=== PATIENT | male | born 1950 | race Two or more races ===

== ENCOUNTER 2018-05-21 15:56 | Emergency (ER) | payer OTHER, MEDICARE | END 2018-05-21 17:54 | disposition home or self-care (01) | LOC: ER 15:56 | DX: M19.072 Primary osteoarthritis, left ankle and foot (principal); E78.00 Pure hypercholesterolemia, unspecified; I10 Essential (primary) hypertension; E11.9 Type 2 diabetes mellitus without complications | CPT/HCPCS: 73630; 99284 ==

== ENCOUNTER 2018-09-25 14:51 | Inpatient (IN) | payer OTHER ==
[~2018-09-25] VITALS: Ht 165.1 cm; Wt 92.1 kg
[2018-09-25] MEDS ORDERED: ACETAMINOPHEN 500 MG TABLET PO ONE (15:45)
[2018-09-25] MEDS ORDERED: IV NORMAL SALINE 1000ML BAG 1,000 ML IV ONE (15:45)
[2018-09-25 15:49] LABS: BILIRUBIN,URINE NEGATIVE (NEG); CLARITY,URINE CLEAR; COLOR,URINE YELLOW; NITRITE,URINE NEGATIVE (NEG); PH,URINE 7.5; PROTEIN,URINE 100 mg/dL (NEG-TRACE); UROBILINOGEN,URINE 0.2 mg/dL (0.2 mg/dL)
[2018-09-25 16:04] LABS: BACTERIA,URINE 0 /HPF (0-FEW); SQUAMOUS EPITHELIAL CELL,UR FEW /LPF; WBC,URINE OCC /HPF (0-4)
[2018-09-25 16:04] LABS: BASO % 1 % (0-3); EOS % 1 % (0-3); HEMATOCRIT 37.8 % (39.0-53.0); HEMOGLOBIN 12.4 g/dL (13.0-17.5); LYMPH # 0.6 x10^3/uL (1.0-4.8); LYMPH % 10 % (24-48); MEAN CORPUSCULAR HEMOGLOBIN 25 pg (25-35); MEAN CORPUSCULAR HGB CONC 33 g/dL (31-37); MEAN CORPUSCULAR VOLUME 76 fL (79-100); MONO # 0.5 x10^3/uL (0.0-1.1); MONO % 7 % (0-9); NEUT # 5.3 x10^3uL (1.8-7.7); NEUT % 82 % (31-73); PLATELET COUNT 182 x10^3/uL (140-400); RED BLOOD COUNT 4.96 x10^6/uL (4.30-5.70); RED CELL DISTRIBUTION WIDTH 15.8 % (11.5-14.5); WHITE BLOOD COUNT 6.5 x10^3/uL (4.0-11.0)
--- NOTE | 2018-09-25 16:07 | PHYS DOC ---
Past Medical History Past Medical History: Diabetes-Type II, High Cholesterol, Hypertension Past Surgical History: No Surgical History Smoking: Quit Greater Than 1 Year Alcohol Use: None Drug Use: None Adult General Chief Complaint Chief Complaint: FEVER HPI HPI Pt speaks [place] so translation phone used for communication. 68 y/o male presents to ER via POV for c/o fever, BEAL, bodyaches, nonprod. cough , and CP with coughing. Pt reports sxs started on Tuesday. Pt has 103.1 temp. on arrival- denying any OTC tylenol/ibuprofen for fever/pain today. Pt denies SOA, urinary sxs, sore throat, ear ache, urinary sxs, abd pain, or N/V/D. Pt denies recent travel. Pt denies any other family members with similar illness. Pt has been taking OTC Delsym and allergy medication since onset of sxs. Review of Systems Review of Systems Constitutional: Reports fever with generalized bodyaches and fatigue Eyes: Denies change in visual acuity, redness, or eye pain [] HENT: Denies nasal congestion or sore throat [] Respiratory: Denies shortness of breath. Reports nonprod. cough Cardiovascular: Reports CP w/coughing episodes. Denies palpitations GI: Denies abdominal pain, nausea, vomiting, bloody stools or diarrhea [] : Denies dysuria or hematuria [] Musculoskeletal: Reports generalized bodyaches denying neck stiffness Integument: Denies rash, swelling or skin lesions [] Neurologic: Denies focal weakness or sensory changes. Reports mild BEAL denying dizziness/lightheadedness Endocrine: Denies polyuria or polydipsia [] All other systems were reviewed and found to be within normal limits, except as documented in this note. Current Medications Current Medications Current Medications Medications (Trade) Dose Ordered Sig/[place] Start Time Stop Time Status Last Admin Dose Admin Acetaminophen (Tylenol) 1,000 mg 1X ONCE 09/25/18 15:45 09/25/18 15:46 DC 09/25/18 16:25 1,000 MG Sodium Chloride 1,000 ml @ 1,000 mls/hr 1X ONCE 09/25/18 15:45 09/25/18 16:44 DC 09/25/18 16:25 1,000 MLS/HR Allergies Allergies Allergies Coded Allergies Type Severity Reaction Last Updated Verified No Known Drug Allergies 11/22/14 No Physical Exam Physical Exam Constitutional: Well developed, well nourished, no acute distress, non-toxic appearance. [] HENT: Normocephalic, atraumatic, bilateral ears normal, no pharyngeal/tonsillar erythema or swelling, mucous membranes pink/moist, no oral exudates, nose normal. [] Eyes: 3mm PERRLA, no nystagmus, conjunctiva normal, no discharge. [] Neck: Normal range of motion, no tenderness, supple, no gross adenopathy Cardiovascular: Tachycardic heart rate/rhythm, no murmur [] Lungs & Thorax: Bilateral breath sounds clear to auscultation. Resp. equal/ nonlabored Abdomen: Bowel sounds normal, soft, no tenderness, no masses, no pulsatile masses. [] Skin: Warm, dry, no erythema, no rash. [] Back: No tenderness, no CVA tenderness. [] Extremities: No tenderness, no cyanosis, no clubbing, ROM intact, no edema. [] Neurologic: Alert and oriented X 3, normal motor function, normal sensory function, no focal deficits noted. [] Psychologic: Affect normal, judgement normal, mood normal. [] Current Patient Data Vital Signs Vital Signs Date Time Temp Pulse Resp B/P (MAP) Pulse Ox O2 Delivery O2 Flow Rate FiO2 09/25/18 18:00 102 133/74 (93) 94 Room Air 09/25/18 17:36 99.5 99.5 09/25/18 15:39 22 Lab Values Laboratory Tests Test 09/25/18 15:20 09/25/18 15:37 09/25/18 15:45 Influenza Type A Antigen Negative (NEGATIVE) Influenza Type B Antigen Negative (NEGATIVE) Urine Collection Type Unknown Urine Color Yellow Urine Clarity Clear Urine pH 7.5 Urine Specific [place] 1.020 Urine Protein 100 mg/dL (NEG-TRACE) Urine Glucose (UA) Negative mg/dL (NEG) Urine Ketones (Stick) Negative mg/dL (NEG) Urine Blood Negative (NEG) Urine Nitrite Negative (NEG) Urine Bilirubin Negative (NEG) Urine Urobilinogen Dipstick 0.2 mg/dL (0.2 mg/dL) Urine Leukocyte Esterase Negative (NEG) Urine RBC 1-2 /HPF (0-2) Urine WBC Occ /HPF (0-4) Urine Squamous Epithelial Cells Few /LPF Urine Bacteria 0 /HPF (0-FEW) Urine Mucus Slight /LPF White Blood Count 6.5 x10^3/uL (4.0-11.0) Red Blood Count 4.96 x10^6/uL (4.30-5.70) Hemoglobin 12.4 g/dL (13.0-17.5) L Hematocrit 37.8 % (39.0-53.0) L Mean Corpuscular Volume 76 fL (79-100) L Mean Corpuscular Hemoglobin 25 pg (25-35) Mean Corpuscular Hemoglobin Concent 33 g/dL (31-37) Red Cell Distribution Width 15.8 % (11.5-14.5) H Platelet Count 182 x10^3/uL (140-400) Neutrophils (%) (Auto) 82 % (31-73) H Lymphocytes (%) (Auto) 10 % (24-48) L Monocytes (%) (Auto) 7 % (0-9) Eosinophils (%) (Auto) 1 % (0-3) Basophils (%) (Auto) 1 % (0-3) Neutrophils # (Auto) 5.3 x10^3uL (1.8-7.7) Lymphocytes # (Auto) 0.6 x10^3/uL (1.0-4.8) L Monocytes # (Auto) 0.5 x10^3/uL (0.0-1.1) Eosinophils # (Auto) 0.0 x10^3/uL (0.0-0.7) Basophils # (Auto) 0.0 x10^3/uL (0.0-0.2) Sodium Level 137 mmol/L (136-145) Potassium Level 3.9 mmol/L (3.5-5.1) Chloride Level 100 mmol/L (98-107) Carbon Dioxide Level 26 mmol/L (21-32) Anion Gap 11 (6-14) Blood Urea Nitrogen 10 mg/dL (8-26) Creatinine 0.9 mg/dL (0.7-1.3) Estimated GFR (Cockcroft-Gault) 84.4 BUN/Creatinine Ratio 11 (6-20) Glucose Level 146 mg/dL (70-99) H Lactic Acid Level 1.6 mmol/L (0.4-2.0) Calcium Level 9.0 mg/dL (8.5-10.1) Total Bilirubin 0.3 mg/dL (0.2-1.0) Aspartate Amino Transferase (AST) 20 U/L (15-37) Alanine Aminotransferase (ALT) 26 U/L (16-63) Alkaline Phosphatase 63 U/L (46-116) Troponin I Quantitative < 0.017 ng/mL (0.000-0.055) Total Protein 7.7 g/dL (6.4-8.2) Albumin 3.9 g/dL (3.4-5.0) Albumin/Globulin Ratio 1.0 (1.0-1.7) Laboratory Tests 09/25/18 15:45 Laboratory Tests 09/25/18 15:45 Microbiology 09/25/18 Blood Culture - Preliminary, Resulted NO GROWTH AFTER 4 DAYS EKG EKG EKG obtained 09/25/18 at [address] Trejo Sinus tachycardia Rate 125 No STEMI Radiology/Procedures Radiology/Procedures PROCEDURE: CHEST PA & LATERAL AP and Lateral Views of the Chest 09/25/2018 3:44 PM Indication: FEVER, CHEST PAIN X3 DAYS Comparison: 2 views of the chest November 22, 2014. Findings: There is no focal consolidation or infiltrate identified. The cardiomediastinal silhouette is within normal limits. There is no evidence of pneumothorax or pleural effusion. No acute osseous abnormalities are identified. Impression: No evidence of acute cardiopulmonary process. Electronically signed by: Wilberto Sharp MD (09/25/2018 4:27 PM) [facility] DICTATED and SIGNED BY: WILBERTO SHARP MD DATE: 09/25/180 Course & Med Decision Making Course & Med Decision Making Pertinent Labs and Imaging studies reviewed. (See chart for details) Discussed pt's test results with him via translation phone- discussed with sxs recommended admission for further monitoring and care- he is agreeable with this plan. Pt reports he is feeling slightly better following flds/tx while in ER. Nontoxic in appearance however does still appear fatigued. Pt denies any SOA /CP and he remains A&Ox3. Pt's UA/chest xray were unremarkable. WBCs 6.5 with no bands- neg. flu swab- EKG with no acute STEMI/ST elevation and troponin < 0.017; lactic acid NL at 1.6. 1733: Spoke with Dr. Littlejohn, hospitalist and discussed pt's case and admission plan. With pt having 103.1 temp. on arrival and c/o BEAL will discuss pt's case with Dr. Trejo and possible need for LP. Pt did have LP by Dr. Trejo prior to going to assigned admit room. ABBY Procedure note: The area was prepped and draped in the usual sterile fashion. Informed consent was obtained prior to the procedure via an physical education specialist phone . lidocaine was used for subcutaneous anesthesia. The L2-3 interspace was attempted without success and then the L3-4 interspace WAS entered with a 20- gauge needle clear CSF was returned the patient tolerated well neuro intact after the procedure. I evaluated this patient in detail. Apparently this is a 68-year-old male last was in [place] on June coming in with fever of 103 as well as mild headache dry cough body aches amazingly the influenza swab was negative. The neck was pretty supple however I really had no other obvious source symptoms and given the elevated fever I feel that a lumbar puncture would be reasonable. He consented to the procedure we talked about a with physical education specialist phone in detail. See above. Patient was then transferred to the floor under droplet precautions and at 9:50 PM I was made aware by the lab that the results of the CSF or in. There were 9 white cells with a lymphocytic predominance there also was high protein and mildly elevated glucose in the CSF. Given the clinical symptoms and these findings I think a viral is the most likely etiology. There is an HSV PCR pending and in addition I did order ceftriaxone Vanco and acyclovir to cover him overnight. I did place for a consult for infectious disease see this patient in the hospital. I DID SPEAK WITH THE NURSE AT ROOM 532 ABOUT THE ADDED ON THERAPY AND SHE WILL DO THE ABX/ANTIVIRAL AND KEEP PT ON DROPLET OVERNIGHT Dragon Disclaimer Dragon Disclaimer This electronic medical record was generated, in whole or in part, using a voice recognition dictation system. Departure Departure Impression: Primary Impression: Fever Disposition: HOME, SELF-CARE Condition: STABLE Referrals: UNKNOWN PCP NAME (PCP) Scripts Glimepiride (AMARYL) 2 Mg Tablet 2 MG PO DAILY08 for BLOOD SUGAR for 30 Days, #30 TAB Prov: LEONILA SILVERIO MD 09/28/18 Metformin Hcl (GLUCOPHAGE) 500 Mg Tablet 1000 MG PO BIDWMEALS for BLOOD SUGAR for 30 Days, #120 TAB Prov: LEONILA SILVERIO MD 09/28/18 Ibuprofen (Ibuprofen) 200 Mg Tablet 600 MG PO PRN Q6HRS PRN for INFLAMMATION for 14 Days, #90 TAB Prov: LEONILA SILVERIO MD 09/28/18 Aspirin (ASPIRIN EC) 81 Mg Tablet.dr 81 MG PO DAILYWBKFT for HEART for 90 Days, #90 TAB.SR Prov: LEONILA SILVERIO MD 09/28/18 Lisinopril (LISINOPRIL) 5 Mg Tablet 5 MG PO DAILY for BLOOD PRESSURE for 30 Days, #30 TAB Prov: LEONILA SILVERIO MD 09/28/18 Atorvastatin Calcium (ATORVASTATIN CALCIUM) 40 Mg Tablet 40 MG PO QHS for CHOLESTEROL for 30 Days, #30 TAB Prov: LEONILA SILVERIO MD 09/28/18 Metoprolol Tartrate (METOPROLOL TARTRATE) 50 Mg Tablet 50 MG PO BID for HEART for 30 Days, #60 TAB Prov: LEONILA SILVERIO MD 09/28/18 EPIFANIO GAYLE APRN Sep 25, 2018 16:07 TANIKA TREJO MD Sep 25, 2018 21:52
[2018-09-25 16:12] LABS: CREATININE 0.9 mg/dL (0.7-1.3); GFR 84.4; POTASSIUM 3.9 mmol/L (3.5-5.1)
[2018-09-25 16:18] LABS: ALBUMIN 3.9 g/dL (3.4-5.0); TOTAL BILIRUBIN 0.3 mg/dL (0.2-1.0); TOTAL PROTEIN 7.7 g/dL (6.4-8.2)
--- NOTE | 2018-09-25 16:30 | RAD ---
AP and Lateral Views of the Chest 09/25/2018 3:44 PM Indication: FEVER, CHEST PAIN X3 DAYS Comparison: 2 views of the chest November 22, 2014. Findings: There is no focal consolidation or infiltrate identified. The cardiomediastinal silhouette is within normal limits. There is no evidence of pneumothorax or pleural effusion. No acute osseous abnormalities are identified. Impression: No evidence of acute cardiopulmonary process. Electronically signed by: Wilberto Whiting MD (09/25/2018 4:27 PM) [facility] [place]
[2018-09-25 16:34] LABS: INFLUENZA A PATIENT NEGATIVE (NEGATIVE); INFLUENZA B PATIENT NEGATIVE (NEGATIVE)
--- NOTE | 2018-09-25 16:50 | EKG ---
[facility] [address] [place] [address] Test Date: 2018-09-25 Test Time: 15:52:36 Pat Name: ILIANA ELLINGTON Department: Room: Gender: M Operations Inspector: : 1950 Requested By: EPIFANIO GAYLE Order Number: [id number] Reading MD: Silvestre Paris MD Measurements Intervals [place] Rate: 125 P: 39 VA: 146 QRS: 2 QRSD: 78 T: 53 QT: 290 QTc: 420 Interpretive Statements SINUS TACHYCARDIA Electronically Signed On 09-26-2018 13:56:08 DRAFTER DETAIL by Silvestre Paris MD
[2018-09-25] MEDS ORDERED: LIDOCAINE 2% 20 ML VIAL. IJ ONE (18:15)
[2018-09-25 19:48] LABS: CSF PROTEIN 56.8 mg/dL (15.0-45.0)
[2018-09-25] MEDS: ACETAMINOPHEN 325 MG TABLET. PO PRN (21:20)
[2018-09-25 21:39] LABS: CSF CLARITY CLEAR; CSF COLOR COLORLESS
[2018-09-25 21:40] LABS: CSF MON % 100 %; CSF PMN % 0 %; CSF RBC COUNT 2; CSF WBC COUNT 9
[2018-09-25] MEDS: DEXTROSE 5% IV SCH (22:53)
[2018-09-25] MEDS: ACYCLOVIR SODIUM IV SCH (22:53)
[2018-09-25 23:00] VITALS: BP 129/78
[2018-09-25] MEDS: cefTRIAXone SODIUM 2 GM in IV DEXTROSE 5% 100ML 100 ML IV SCH (23:00)
[2018-09-26] MEDS ORDERED: VANCOMYCIN 2 GM in IV NORMAL SALINE 500ML BAG 500 ML IV ONE ×2
[2018-09-26 03:00] VITALS: BP 130/71
[2018-09-26] MEDS: DEXTROSE 5% IV SCH (06:15)
[2018-09-26] MEDS: ACYCLOVIR SODIUM IV SCH (06:15)
[2018-09-26] MEDS: VANCOMYCIN PER PHARMACY MC PRN ×2 (06:22→06:24)
[2018-09-26 07:00] VITALS: BP 104/61
[2018-09-26 07:21] LABS: BASO % 1 % (0-3); EOS % 0 % (0-3); HEMATOCRIT 37.5 % (39.0-53.0); HEMOGLOBIN 12.4 g/dL (13.0-17.5); LYMPH # 0.7 x10^3/uL (1.0-4.8); LYMPH % 11 % (24-48); MEAN CORPUSCULAR HEMOGLOBIN 25 pg (25-35); MEAN CORPUSCULAR HGB CONC 33 g/dL (31-37); MEAN CORPUSCULAR VOLUME 76 fL (79-100); MONO # 0.5 x10^3/uL (0.0-1.1); MONO % 8 % (0-9); NEUT # 5.1 x10^3uL (1.8-7.7); NEUT % 81 % (31-73); RED BLOOD COUNT 4.91 x10^6/uL (4.30-5.70); RED CELL DISTRIBUTION WIDTH 15.9 % (11.5-14.5); WHITE BLOOD COUNT 6.3 x10^3/uL (4.0-11.0)
[2018-09-26 07:34] LABS: CALCIUM 8.7 mg/dL (8.5-10.1); CREATININE 0.9 mg/dL (0.7-1.3); GFR 84.4; POTASSIUM 3.6 mmol/L (3.5-5.1)
[2018-09-26 07:55] LABS: PLATELET COUNT 183 x10^3/uL (140-400)
[2018-09-26] MEDS ORDERED: IBUPROFEN 200 MG TABLET. PO PRN (08:00)
[2018-09-26] MEDS: LISINOPRIL 10 MG TABLET PO SCH (09:00)
--- NOTE | 2018-09-26 09:09 | PDOC ---
Infectious Disease Note Vital Sign Vital Signs Vital Signs Date Time Temp Pulse Resp B/P (MAP) Pulse Ox O2 Delivery O2 Flow Rate FiO2 09/26/18 07:00 99.1 99 18 104/61 (75) 95 Room Air 99.1 Labs Lab Laboratory Tests Test 09/25/18 15:20 09/25/18 15:37 09/25/18 15:45 09/25/18 19:10 Influenza Type A Antigen Negative (NEGATIVE) Influenza Type B Antigen Negative (NEGATIVE) Urine Collection Type Unknown Urine Color Yellow Urine Clarity Clear Urine pH 7.5 Urine Specific [place] 1.020 Urine Protein 100 mg/dL (NEG-TRACE) Urine Glucose (UA) Negative mg/dL (NEG) Urine Ketones (Stick) Negative mg/dL (NEG) Urine Blood Negative (NEG) Urine Nitrite Negative (NEG) Urine Bilirubin Negative (NEG) Urine Urobilinogen Dipstick 0.2 mg/dL (0.2 mg/dL) Urine Leukocyte Esterase Negative (NEG) Urine RBC 1-2 /HPF (0-2) Urine WBC Occ /HPF (0-4) Urine Squamous Epithelial Cells Few /LPF Urine Bacteria 0 /HPF (0-FEW) Urine Mucus Slight /LPF White Blood Count 6.5 x10^3/uL (4.0-11.0) Red Blood Count 4.96 x10^6/uL (4.30-5.70) Hemoglobin 12.4 g/dL (13.0-17.5) Hematocrit 37.8 % (39.0-53.0) Mean Corpuscular Volume 76 fL (79-100) Mean Corpuscular Hemoglobin 25 pg (25-35) Mean Corpuscular Hemoglobin Concent 33 g/dL (31-37) Red Cell Distribution Width 15.8 % (11.5-14.5) Platelet Count 182 x10^3/uL (140-400) Neutrophils (%) (Auto) 82 % (31-73) Lymphocytes (%) (Auto) 10 % (24-48) Monocytes (%) (Auto) 7 % (0-9) Eosinophils (%) (Auto) 1 % (0-3) Basophils (%) (Auto) 1 % (0-3) Neutrophils # (Auto) 5.3 x10^3uL (1.8-7.7) Lymphocytes # (Auto) 0.6 x10^3/uL (1.0-4.8) Monocytes # (Auto) 0.5 x10^3/uL (0.0-1.1) Eosinophils # (Auto) 0.0 x10^3/uL (0.0-0.7) Basophils # (Auto) 0.0 x10^3/uL (0.0-0.2) Sodium Level 137 mmol/L (136-145) Potassium Level 3.9 mmol/L (3.5-5.1) Chloride Level 100 mmol/L (98-107) Carbon Dioxide Level 26 mmol/L (21-32) Anion Gap 11 (6-14) Blood Urea Nitrogen 10 mg/dL (8-26) Creatinine 0.9 mg/dL (0.7-1.3) Estimated GFR (Cockcroft-Gault) 84.4 BUN/Creatinine Ratio 11 (6-20) Glucose Level 146 mg/dL (70-99) Lactic Acid Level 1.6 mmol/L (0.4-2.0) Calcium Level 9.0 mg/dL (8.5-10.1) Total Bilirubin 0.3 mg/dL (0.2-1.0) Aspartate Amino Transf (AST/SGOT) 20 U/L (15-37) Alanine Aminotransferase (ALT/SGPT) 26 U/L (16-63) Alkaline Phosphatase 63 U/L (46-116) Troponin I Quantitative < 0.017 ng/mL (0.000-0.055) Total Protein 7.7 g/dL (6.4-8.2) Albumin 3.9 g/dL (3.4-5.0) Albumin/Globulin Ratio 1.0 (1.0-1.7) CSF Tube Number 3 CSF Volume 3.0 CSF Color Colorless CSF Clarity Clear CSF WBC 9 CSF RBC 2 CSF Mononuclear WBCs % 100 % CSF Polynuclear WBCs (%) 0 % CSF Glucose 89 mg/dL (37-70) CSF Total Protein 56.8 mg/dL (15.0-45.0) Test 09/25/18 21:11 09/26/18 07:00 09/26/18 07:58 Glucose (Fingerstick) 152 mg/dL (70-99) 200 mg/dL (70-99) White Blood Count 6.3 x10^3/uL (4.0-11.0) Red Blood Count 4.91 x10^6/uL (4.30-5.70) Hemoglobin 12.4 g/dL (13.0-17.5) Hematocrit 37.5 % (39.0-53.0) Mean Corpuscular Volume 76 fL (79-100) Mean Corpuscular Hemoglobin 25 pg (25-35) Mean Corpuscular Hemoglobin Concent 33 g/dL (31-37) Red Cell Distribution Width 15.9 % (11.5-14.5) Platelet Count 183 x10^3/uL (140-400) Neutrophils (%) (Auto) 81 % (31-73) Lymphocytes (%) (Auto) 11 % (24-48) Monocytes (%) (Auto) 8 % (0-9) Eosinophils (%) (Auto) 0 % (0-3) Basophils (%) (Auto) 1 % (0-3) Neutrophils # (Auto) 5.1 x10^3uL (1.8-7.7) Lymphocytes # (Auto) 0.7 x10^3/uL (1.0-4.8) Monocytes # (Auto) 0.5 x10^3/uL (0.0-1.1) Eosinophils # (Auto) 0.0 x10^3/uL (0.0-0.7) Basophils # (Auto) 0.0 x10^3/uL (0.0-0.2) Sodium Level 137 mmol/L (136-145) Potassium Level 3.6 mmol/L (3.5-5.1) Chloride Level 100 mmol/L (98-107) Carbon Dioxide Level 25 mmol/L (21-32) Anion Gap 12 (6-14) Blood Urea Nitrogen 7 mg/dL (8-26) Creatinine 0.9 mg/dL (0.7-1.3) Estimated GFR (Cockcroft-Gault) 84.4 Glucose Level 194 mg/dL (70-99) Calcium Level 8.7 mg/dL (8.5-10.1) Objective Assessment Aseptic Meningitis Fever - Now s/p Im Flu vaccine today DM BEAL Plan Plan of Care D/c Acyclovir/Vanc Added [place] and Enteroviral to CSF Rocephin daily F/u labs and cults D/w family Thank you # [phone] Attending Co-Sign Attending Co-Sign The patient was seen and interviewed as well as examined at the bedside. The chart was reviewed. The case was discussed. Agree with the plan of care. PEPITO FRANZ MD Sep 26, 2018 09:09
[2018-09-26] MEDS: GLIMEPIRIDE 2 MG TABLET. PO SCH (09:44)
[2018-09-26] MEDS: ACETAMINOPHEN 325 MG TABLET. PO PRN ×2 (09:44→15:29)
[2018-09-26 10:36] VITALS: BP 118/67
--- NOTE | 2018-09-26 10:53 | PDOC1 ---
History and Physical Date of Admission Date of Admission DATE: 09/26/18 TIME: 10:49 Identification/Chief Complaint Chief Complaint fevers Source Source: Caregiver, Chart review, Patient History of Present Illness History of Present Illness 68-year-old male with limited Bhutanese, comes in because of acute onset fever 103 temperature at the emergency room which has come down after management. He has some headache, denies recent travels or sick contacts, no rash, no diarrhea. UA and chest x-ray is clean. Lacks symptoms of URI infection. Did recommend LP and that was done which shows relatively clean LP. ID consulted. Initially started on Acyclovir, Vancomycin etc. for meningitis coverage but to DC that since LP is clean. Added West Nile etc. This could all be viral syndrome but we do not have a source. Flu is negative. Did get an IM shot of flu already today. We'll follow-up the lab test results. If remains fever free then possibly dc tomorrow. He did have low-grade temperatures last night still. Discussed with multiple family members at bedside . Physical exam is within normal limits. Past medical history none Past Medical History Cardiovascular: No pertinent hx Pulmonary: No pertinent hx GI: No pertinent hx Heme/Onc: No pertinent hx Hepatobiliary: No pertinent hx Psych: No pertinent hx Rheumatologic: No pertinent hx Infectious disease: No pertinent hx ENT: No pertinent hx Renal/: No pertinent hx Endocrine: No pertinent hx Dermatology: No pertinent hx Past Surgical History Past Surgical History: No pertinent history Family History Family History: No Significant Social History Smoke: No ALCOHOL: none Drugs: None Current Medications Current Medications Current Medications Sodium Chloride 1,000 ml @ 1,000 mls/hr 1X ONCE IV Last administered on at 16:25; Start 09/25/18 at 15:45; Stop 09/25/18 at 16:44; Status DC Acetaminophen (Tylenol) 1,000 mg 1X ONCE PO Last administered on 09/25/18at 16: 25; Start 09/25/18 at 15:45; Stop 09/25/18 at 15:46; Status DC Lidocaine HCl 10 ml 1X ONCE IJ Last administered on 09/25/18at 18:50; Start at 18:15; Stop 09/25/18 at 18:16; Status DC Acetaminophen (Tylenol) 650 mg PRN Q4HRS PRN PO FEVER Last administered on 09/26at 09:44; Start 09/25/18 at 20:00; Stop 09/26/18 at 19:59 Ceftriaxone Sodium 2 gm/ Dextrose 100 ml @ 200 mls/hr Q24H IV Last administered on 09/25/18at 23:00; Start 09/25/18 at 22:00 Vancomycin HCl (Vanco Per Pharmacy) 1 each PRN DAILY PRN MC SEE COMMENTS Last administered on 09/26/18at 06:24; Start 09/25/18 at 21:45; Stop 09/26/18 at 09:00 ; Status DC Acyclovir Sodium 310 mg/Dextrose 106.2 ml @ 106.2 mls/ hr Q8HRS IV Last administered on 09/26/18at 06:15; Start 09/25/18 at 22:00; Stop 09/26/18 at 09:00 ; Status DC Vancomycin HCl 2 gm/Sodium Chloride 500 ml @ 250 mls/hr 1X ONCE IV Last administered on 09/26/18at 00:00; Start 09/26/18 at 00:00; Stop 09/26/18 at 01:59 ; Status DC Influenza Virus Vaccine (Afluria Trivalent [id number] Syringe) 0.5 ml ONCE ONCE VAX IM ; Start 09/26/18 at 09:00; Stop 09/26/18 at 09:01; Status DC Glimepiride (Amaryl) 2 mg DAILY08 PO Last administered on 09/26/18at 09:44; Start 09/26/18 at 08:00 Atorvastatin Calcium (Lipitor) 40 mg QHS PO ; Start 09/26/18 at 21:00 Lisinopril (Prinivil) 10 mg DAILY PO ; Start 09/26/18 at 09:00 Vancomycin HCl 1.25 gm/Sodium Chloride 250 ml @ 167 mls/hr Q12H IV ; Start 09/26/18 at 12:00; Stop 09/26/18 at 12:00; Status DC Vancomycin HCl (Vancomycin Trough Level) 1 each 1X ONCE MC ; Start 09/27/18 at 11:30; Stop 09/27/18 at 11:31; Status Cancel Ibuprofen (Motrin) 600 mg PRN Q6HRS PRN PO INFLAMMATION; Start 09/26/18 at 08: 00 Allergies Allergies: Coded Allergies: No Known Drug Allergies (Unverified , 1/2/15) ROS Review of System Per history of present illness, the rest of ROS 14 point negative Physical Exam General: Alert, Oriented X3, Cooperative, No acute distress HEENT: Atraumatic, PERRLA, EOMI Lungs: Clear to auscultation, Normal air movement Heart: S1S2, RRR, no thrills, no rubs, no gallops, no murmurs Cardiovascular: S1, S2 Abdomen: Normal bowel sounds, Soft, No tenderness, No hepatosplenomegaly, No masses Male Genitals Exam: normal genitalia, normal prostate Rectal Exam: not examined PELVIC: Nml ext genitalia Extremities: No clubbing, No cyanosis, No edema, Normal pulses, No tenderness/ swelling Skin: No rashes, No breakdown, No significant lesion Neuro: Normal gait, Normal speech, Strength at 5/5 X4 ext, Normal tone, Sensation intact, Cranial nerves 3-12 NL, Reflexes 2+ Psych/Mental Status: Mental status NL, Mood NL Vitals Vitals Vital Signs Date Time Temp Pulse Resp B/P (MAP) Pulse Ox O2 Delivery O2 Flow Rate FiO2 09/26/18 10:36 99.8 98 18 118/67 (84) 93 Room Air 99.8 Labs Labs Laboratory Tests Test 09/25/18 15:20 09/25/18 15:37 09/25/18 15:45 09/25/18 19:10 Influenza Type A Antigen Negative (NEGATIVE) Influenza Type B Antigen Negative (NEGATIVE) Urine Collection Type Unknown Urine Color Yellow Urine Clarity Clear Urine pH 7.5 Urine Specific [place] 1.020 Urine Protein 100 mg/dL (NEG-TRACE) Urine Glucose (UA) Negative mg/dL (NEG) Urine Ketones (Stick) Negative mg/dL (NEG) Urine Blood Negative (NEG) Urine Nitrite Negative (NEG) Urine Bilirubin Negative (NEG) Urine Urobilinogen Dipstick 0.2 mg/dL (0.2 mg/dL) Urine Leukocyte Esterase Negative (NEG) Urine RBC 1-2 /HPF (0-2) Urine WBC Occ /HPF (0-4) Urine Squamous Epithelial Cells Few /LPF Urine Bacteria 0 /HPF (0-FEW) Urine Mucus Slight /LPF White Blood Count 6.5 x10^3/uL (4.0-11.0) Red Blood Count 4.96 x10^6/uL (4.30-5.70) Hemoglobin 12.4 g/dL (13.0-17.5) Hematocrit 37.8 % (39.0-53.0) Mean Corpuscular Volume 76 fL (79-100) Mean Corpuscular Hemoglobin 25 pg (25-35) Mean Corpuscular Hemoglobin Concent 33 g/dL (31-37) Red Cell Distribution Width 15.8 % (11.5-14.5) Platelet Count 182 x10^3/uL (140-400) Neutrophils (%) (Auto) 82 % (31-73) Lymphocytes (%) (Auto) 10 % (24-48) Monocytes (%) (Auto) 7 % (0-9) Eosinophils (%) (Auto) 1 % (0-3) Basophils (%) (Auto) 1 % (0-3) Neutrophils # (Auto) 5.3 x10^3uL (1.8-7.7) Lymphocytes # (Auto) 0.6 x10^3/uL (1.0-4.8) Monocytes # (Auto) 0.5 x10^3/uL (0.0-1.1) Eosinophils # (Auto) 0.0 x10^3/uL (0.0-0.7) Basophils # (Auto) 0.0 x10^3/uL (0.0-0.2) Sodium Level 137 mmol/L (136-145) Potassium Level 3.9 mmol/L (3.5-5.1) Chloride Level 100 mmol/L (98-107) Carbon Dioxide Level 26 mmol/L (21-32) Anion Gap 11 (6-14) Blood Urea Nitrogen 10 mg/dL (8-26) Creatinine 0.9 mg/dL (0.7-1.3) Estimated GFR (Cockcroft-Gault) 84.4 BUN/Creatinine Ratio 11 (6-20) Glucose Level 146 mg/dL (70-99) Lactic Acid Level 1.6 mmol/L (0.4-2.0) Calcium Level 9.0 mg/dL (8.5-10.1) Total Bilirubin 0.3 mg/dL (0.2-1.0) Aspartate Amino Transf (AST/SGOT) 20 U/L (15-37) Alanine Aminotransferase (ALT/SGPT) 26 U/L (16-63) Alkaline Phosphatase 63 U/L (46-116) Troponin I Quantitative < 0.017 ng/mL (0.000-0.055) Total Protein 7.7 g/dL (6.4-8.2) Albumin 3.9 g/dL (3.4-5.0) Albumin/Globulin Ratio 1.0 (1.0-1.7) CSF Tube Number 3 CSF Volume 3.0 CSF Color Colorless CSF Clarity Clear CSF WBC 9 CSF RBC 2 CSF Mononuclear WBCs % 100 % CSF Polynuclear WBCs (%) 0 % CSF Glucose 89 mg/dL (37-70) CSF Total Protein 56.8 mg/dL (15.0-45.0) Test 09/25/18 21:11 09/26/18 07:00 09/26/18 07:58 Glucose (Fingerstick) 152 mg/dL (70-99) 200 mg/dL (70-99) White Blood Count 6.3 x10^3/uL (4.0-11.0) Red Blood Count 4.91 x10^6/uL (4.30-5.70) Hemoglobin 12.4 g/dL (13.0-17.5) Hematocrit 37.5 % (39.0-53.0) Mean Corpuscular Volume 76 fL (79-100) Mean Corpuscular Hemoglobin 25 pg (25-35) Mean Corpuscular Hemoglobin Concent 33 g/dL (31-37) Red Cell Distribution Width 15.9 % (11.5-14.5) Platelet Count 183 x10^3/uL (140-400) Neutrophils (%) (Auto) 81 % (31-73) Lymphocytes (%) (Auto) 11 % (24-48) Monocytes (%) (Auto) 8 % (0-9) Eosinophils (%) (Auto) 0 % (0-3) Basophils (%) (Auto) 1 % (0-3) Neutrophils # (Auto) 5.1 x10^3uL (1.8-7.7) Lymphocytes # (Auto) 0.7 x10^3/uL (1.0-4.8) Monocytes # (Auto) 0.5 x10^3/uL (0.0-1.1) Eosinophils # (Auto) 0.0 x10^3/uL (0.0-0.7) Basophils # (Auto) 0.0 x10^3/uL (0.0-0.2) Erythrocyte Sedimentation Rate 12 (0-15) Sodium Level 137 mmol/L (136-145) Potassium Level 3.6 mmol/L (3.5-5.1) Chloride Level 100 mmol/L (98-107) Carbon Dioxide Level 25 mmol/L (21-32) Anion Gap 12 (6-14) Blood Urea Nitrogen 7 mg/dL (8-26) Creatinine 0.9 mg/dL (0.7-1.3) Estimated GFR (Cockcroft-Gault) 84.4 Glucose Level 194 mg/dL (70-99) Calcium Level 8.7 mg/dL (8.5-10.1) Laboratory Tests Test 09/25/18 15:20 09/25/18 15:37 09/25/18 15:45 09/25/18 19:10 Influenza Type A Antigen Negative (NEGATIVE) Influenza Type B Antigen Negative (NEGATIVE) Urine Collection Type Unknown Urine Color Yellow Urine Clarity Clear Urine pH 7.5 Urine Specific [place] 1.020 Urine Protein 100 mg/dL (NEG-TRACE) Urine Glucose (UA) Negative mg/dL (NEG) Urine Ketones (Stick) Negative mg/dL (NEG) Urine Blood Negative (NEG) Urine Nitrite Negative (NEG) Urine Bilirubin Negative (NEG) Urine Urobilinogen Dipstick 0.2 mg/dL (0.2 mg/dL) Urine Leukocyte Esterase Negative (NEG) Urine RBC 1-2 /HPF (0-2) Urine WBC Occ /HPF (0-4) Urine Squamous Epithelial Cells Few /LPF Urine Bacteria 0 /HPF (0-FEW) Urine Mucus Slight /LPF White Blood Count 6.5 x10^3/uL (4.0-11.0) Red Blood Count 4.96 x10^6/uL (4.30-5.70) Hemoglobin 12.4 g/dL (13.0-17.5) Hematocrit 37.8 % (39.0-53.0) Mean Corpuscular Volume 76 fL (79-100) Mean Corpuscular Hemoglobin 25 pg (25-35) Mean Corpuscular Hemoglobin Concent 33 g/dL (31-37) Red Cell Distribution Width 15.8 % (11.5-14.5) Platelet Count 182 x10^3/uL (140-400) Neutrophils (%) (Auto) 82 % (31-73) Lymphocytes (%) (Auto) 10 % (24-48) Monocytes (%) (Auto) 7 % (0-9) Eosinophils (%) (Auto) 1 % (0-3) Basophils (%) (Auto) 1 % (0-3) Neutrophils # (Auto) 5.3 x10^3uL (1.8-7.7) Lymphocytes # (Auto) 0.6 x10^3/uL (1.0-4.8) Monocytes # (Auto) 0.5 x10^3/uL (0.0-1.1) Eosinophils # (Auto) 0.0 x10^3/uL (0.0-0.7) Basophils # (Auto) 0.0 x10^3/uL (0.0-0.2) Sodium Level 137 mmol/L (136-145) Potassium Level 3.9 mmol/L (3.5-5.1) Chloride Level 100 mmol/L (98-107) Carbon Dioxide Level 26 mmol/L (21-32) Anion Gap 11 (6-14) Blood Urea Nitrogen 10 mg/dL (8-26) Creatinine 0.9 mg/dL (0.7-1.3) Estimated GFR (Cockcroft-Gault) 84.4 BUN/Creatinine Ratio 11 (6-20) Glucose Level 146 mg/dL (70-99) Lactic Acid Level 1.6 mmol/L (0.4-2.0) Calcium Level 9.0 mg/dL (8.5-10.1) Total Bilirubin 0.3 mg/dL (0.2-1.0) Aspartate Amino Transf (AST/SGOT) 20 U/L (15-37) Alanine Aminotransferase (ALT/SGPT) 26 U/L (16-63) Alkaline Phosphatase 63 U/L (46-116) Troponin I Quantitative < 0.017 ng/mL (0.000-0.055) Total Protein 7.7 g/dL (6.4-8.2) Albumin 3.9 g/dL (3.4-5.0) Albumin/Globulin Ratio 1.0 (1.0-1.7) CSF Tube Number 3 CSF Volume 3.0 CSF Color Colorless CSF Clarity Clear CSF WBC 9 CSF RBC 2 CSF Mononuclear WBCs % 100 % CSF Polynuclear WBCs (%) 0 % CSF Glucose 89 mg/dL (37-70) CSF Total Protein 56.8 mg/dL (15.0-45.0) Test 09/25/18 21:11 09/26/18 07:00 09/26/18 07:58 Glucose (Fingerstick) 152 mg/dL (70-99) 200 mg/dL (70-99) White Blood Count 6.3 x10^3/uL (4.0-11.0) Red Blood Count 4.91 x10^6/uL (4.30-5.70) Hemoglobin 12.4 g/dL (13.0-17.5) Hematocrit 37.5 % (39.0-53.0) Mean Corpuscular Volume 76 fL (79-100) Mean Corpuscular Hemoglobin 25 pg (25-35) Mean Corpuscular Hemoglobin Concent 33 g/dL (31-37) Red Cell Distribution Width 15.9 % (11.5-14.5) Platelet Count 183 x10^3/uL (140-400) Neutrophils (%) (Auto) 81 % (31-73) Lymphocytes (%) (Auto) 11 % (24-48) Monocytes (%) (Auto) 8 % (0-9) Eosinophils (%) (Auto) 0 % (0-3) Basophils (%) (Auto) 1 % (0-3) Neutrophils # (Auto) 5.1 x10^3uL (1.8-7.7) Lymphocytes # (Auto) 0.7 x10^3/uL (1.0-4.8) Monocytes # (Auto) 0.5 x10^3/uL (0.0-1.1) Eosinophils # (Auto) 0.0 x10^3/uL (0.0-0.7) Basophils # (Auto) 0.0 x10^3/uL (0.0-0.2) Erythrocyte Sedimentation Rate 12 (0-15) Sodium Level 137 mmol/L (136-145) Potassium Level 3.6 mmol/L (3.5-5.1) Chloride Level 100 mmol/L (98-107) Carbon Dioxide Level 25 mmol/L (21-32) Anion Gap 12 (6-14) Blood Urea Nitrogen 7 mg/dL (8-26) Creatinine 0.9 mg/dL (0.7-1.3) Estimated GFR (Cockcroft-Gault) 84.4 Glucose Level 194 mg/dL (70-99) Calcium Level 8.7 mg/dL (8.5-10.1) VTE Prophylaxis Ordered VTE Prophylaxis Devices: Yes VTE Pharmacological Prophylaxi: Yes Assessment/Plan Assessment/Plan Fevers, could be viral syndrome Aseptic Meningitis Fever - Now s/p Im Flu vaccine today DM BEAL PLAN: follow ID recommendations Zachary [email or web address] now added Monitor for further temperatures He did get flu shot IM today-ideally should not have been given since acutely ill ALPESH MOORE MD Sep 26, 2018 10:53
[2018-09-26] MEDS ORDERED: VANCOMYCIN 1.25 GM in IV NORMAL SALINE 250ML 250 ML IV SCH (12:00)
[2018-09-26 15:00] VITALS: BP 116/68
[2018-09-26 19:00] VITALS: BP 135/63
[2018-09-26] MEDS: ATORVASTATIN CALCIUM 40 MG TABLET. PO SCH (21:18)
[2018-09-26] MEDS: LACTOBACILLUS RHAMNOSUS GG 1 CAPSULE. PO SCH (21:18)
[2018-09-26 23:00] VITALS: BP 130/75
[2018-09-26] MEDS: cefTRIAXone SODIUM 2 GM in IV DEXTROSE 5% 100ML 100 ML IV SCH (23:00)
--- NOTE | 2018-09-26 23:45 | CONS ---
DATE OF CONSULTATION: 09/26/2018 ROOM: 532 REQUESTING PHYSICIAN: Dr. Littlejohn. REASON FOR CONSULTATION: Fever, headache. HISTORY OF PRESENT ILLNESS: The patient is a pleasant 68-year-old [place] gentleman. He has been in [facility] for approximately 20 years. This interview was assisted with the aid of primitivo Velásquez who speaks fluent Somali. The patient states last Tuesday he began to feel some nausea and some weakness, and had mild headache too and then by Tuesday he began to have some fevers had decreased oral intake. Denies any ill contacts, but does have a 5-month-old who lives in the house with him. He presented to [facility] on 09/25/2018, was found to have a temp of 103 degrees. White blood cell count was 6.5, he had a normal differential. Because of his headache, he underwent a lumbar puncture. The fluid was clear, it had 9 white cells, 100% monocytes, glucose was 89, total protein was 56.8 with upper limit of normal being 45. His glucose on arrival was 146. He was admitted to the hospital and placed on IV acyclovir, vancomycin and Rocephin. Currently, the patient is sitting upright on the side of bed, still has little bit of a headache. He has no photophobia and no pain when he moves his eyes. No pain when he moves his neck. The fever is improved. No swallowing problems. Again, still nausea, no vomiting, no diarrhea. No dysuria, frequency, urgency. No joint aches and no rashes. Fatigue is little bit better. PAST MEDICAL HISTORY: Positive for diabetes, hypercholesterolemia, hypertension. PAST SURGICAL HISTORY: Positive for previous eye surgery. REVIEW OF SYSTEMS: Otherwise negative except for mentioned above. ALLERGIES: No known drug allergies. SOCIAL HISTORY: He is from [place], again he states he has been in the [facility] for 20 years. He did travel to [place] in June and returned in July. He denies any ill contacts down there. He denies any history of any tuberculosis. He quit smoking quite some time ago. He has no pets. He previously worked only in [employer]. He does have a 5-month-old grandchild who lives in the house. He is . Denies any bug bites or tick bites and no other ill contacts. FAMILY HISTORY: Noncontributory. CURRENT MEDICATIONS: Include IV acyclovir, IV Rocephin, IV vancomycin. He is on Lipitor, Amaryl, Motrin, Prinivil, Tylenol. He did receive the flu shot. PHYSICAL EXAMINATION: VITAL SIGNS: T-max was 103 on arrival, currently 99.1. Pulse 99, respirations 18, blood pressure 104/61, satting 95% on room air. CONSTITUTIONAL: He is pleasant. He is cooperative. He has no acute distress. HEENT: Pupils equal and reactive. He does have some cataracts. Extraocular muscles were intact without discomfort. Oral cavity, oropharynx, his front teeth are metal capped, otherwise are clean. NECK: Supple. Good range of motion. LUNGS: Clear to auscultation. HEART: S1, S2. ABDOMEN: Soft, nontender, nondistended. No guarding or rebound. EXTREMITIES: Without clubbing or cyanosis. No edema. SKIN: Warm to touch without signs of rash. He has no gross joint inflammation. NEUROLOGIC: He is nonfocal, answers questions appropriately. PSYCHIATRIC: Affect is appropriate. LABORATORY DATA: White count 6.3, hemoglobin 12.4, platelets of 183, neutrophils 81, lymphs are 11, glucose 194, creatinine of 0.9. Lactic acid was 1.6. He had normal liver function study tests on arrival. Urinalysis not consistent with urinary tract infection. CSF reviewed in history of present illness. Influenza was negative. Chest x-ray without acute process. IMPRESSION: 1. Aseptic meningitis. 2. Fever, now status post flu vaccine today. 3. Diabetes. 4. Headache. RECOMMENDATIONS: For now, we will discontinue the acyclovir even if it is aseptic meningitis. There is certainly indication for IV, particularly since he looks clinically fairly well. Additionally, we will discontinue the vancomycin. We will add West Nile enteroviral PCR to the CSF. HSV is pending. We will continue the Rocephin daily. Follow up labs and cultures. This was discussed with his family with the assistance again of Christen, the nurse. Thank you for asking me to participate in the patient's care. Should you have any questions, please do not hesitate to contact me. PEPITO FRANZ MD DR: JAX/brenden JOB#: [id number] / [id number]
[2018-09-27] VITALS (8 sets, daily range): BP systolic 104–134; BP diastolic 57–81
--- NOTE | 2018-09-27 06:00 | EKG ---
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
[2018-09-27] MEDS ORDERED: METOPROLOL TARTRATE 5 MG/5 ML VIAL. IVP ONE (06:30)
[2018-09-27] MEDS ORDERED: dilTIAZem INJ 125 MG in IV DEXTROSE 5% 100ML 100 ML IV PRN (06:30)
--- NOTE | 2018-09-27 08:18 | PDOC ---
Infectious Disease Note Subjective Subjective Feeling well Denies F/c/S BEAL is min No N/V/D/SOA/RAsh or joint problems Ate well Wants to go home ROS ROS o/w neg Vital Sign Vital Signs Vital Signs Date Time Temp Pulse Resp B/P (MAP) Pulse Ox O2 Delivery O2 Flow Rate FiO2 09/27/18 07:08 100.1 100.1 09/27/18 07:04 145 112/72 (85) 09/27/18 07:03 97 Room Air 09/27/18 05:45 16 Physical Exam PHYSICAL EXAM CONSTITUTIONAL: He is pleasant. He is cooperative. He has no acute distress. HEENT: Pupils equal and reactive. He does have some cataracts. Extraocular muscles were intact without discomfort. Oral cavity, oropharynx, his front teeth are metal capped, otherwise are clean. NECK: Supple. Good range of motion. LUNGS: Clear to auscultation. HEART: S1, S2. ABDOMEN: Soft, nontender, nondistended. No guarding or rebound. EXTREMITIES: Without clubbing or cyanosis. No edema. No joint swelling SKIN: Warm to touch without signs of rash. He has no gross joint inflammation. NEUROLOGIC: He is nonfocal, answers questions appropriately. PSYCHIATRIC: Affect is appropriate. Labs Lab Laboratory Tests Test 09/26/18 11:45 09/26/18 17:17 Glucose (Fingerstick) 262 mg/dL (70-99) 175 mg/dL (70-99) Micro Microbiology 09/25/18 Blood Culture - Preliminary, Resulted NO GROWTH AFTER 1 DAY 09/25/18 CSF Gram Stain - Final, Complete Objective Assessment New Afib RVR -this am Aseptic Meningitis -improved Fever - ? viral/reactive with Afib/ s/p Im Flu vaccine 09/26 -curve better overall DM BEAL Plan Plan of Care CBC/CMP/Troponin/TSH this am and reviewed /Procalcitonin - pending Added West nile and Enteroviral to CSF D/c Rocephin F/u labs Used Automotive Design Drafter phone D/w nursing PEPITO FRANZ MD Sep 27, 2018 08:18
--- NOTE | 2018-09-27 08:36 | PDOC2 ---
CARDIAC CONSULT DATE OF CONSULT Date of Consult DATE: 09/27/18 TIME: 08:29 REASON FOR CONSULT Reason for Consult: AFIB RVR REFERRING PHYSICIAN Referring Physician: Gaby SOURCE Source: Chart review, Patient HISTORY OF PRESENT ILLNESS HISTORY OF PRESENT ILLNESS This is a pleasant 68 yo male admitted for complains of headache. I used the phone teaching assistant for Korean.He has been having nonproductive cough and and body aches. He denies any chest pain, SOA, or palpiatins. No prior hx of AFIB or stroke. He has been noted with aseptic meningitis per ID. He has been febrile as an inpt. Denies any falls, CAD, VTE, or any recent injury. Denies any recreational drugs. He does take ASA at home. PAST MEDICAL HISTORY Cardiovascular: HTN, Hyperlipidemia Pulmonary: No pertinent hx CENTRAL NERVOUS SYSTEM: Other (no pertinent history) GI: No pertinent hx Heme/Onc: No pertinent hx Hepatobiliary: No pertinent hx Psych: No pertinent hx Musculoskeletal: Osteoarthritis Rheumatologic: No pertinent hx Infectious disease: No pertinent hx ENT: Other (cataract) Renal/: No pertinent hx Endocrine: Diabetes (2) PAST SURGICAL HISTORY Past Surgical History: Cataract Removal FAMILY HISTORY Family History noncontributory to CV SOCIAL HISTORY Smoke: Quit ALCOHOL: none Drugs: None Lives: with Family CURRENT MEDICATIONS CURRENT MEDICATIONS Current Medications Medications (Trade) Dose Ordered Sig/[place] Route PRN Reason Start Time Stop Time Status Last Admin Dose Admin Atorvastatin Calcium (Lipitor) 40 mg QHS PO 09/26/18 21:00 09/26/18 21:18 Lactobacillus Rhamnosus (Culturelle) 1 cap BID PO 09/26/18 21:00 09/26/18 21:18 Metoprolol Tartrate (Lopressor Vial) 5 mg 1X ONCE IVP 09/27/18 06:30 09/27/18 06:31 DC 09/27/18 06:57 Diltiazem HCl 125 mg/Dextrose 125 ml @ 5 mls/hr CONT PRN IV SEE I/O RECORD 09/27/18 06:30 09/27/18 07:03 ALLERGIES ALLERGIES: Coded Allergies: No Known Drug Allergies (Unverified , 11/22/14) ROS Review of System 14 point ROS evaluated with pertinent positives noted per HPI PHYSICAL EXAM General: Alert, Oriented X3, Cooperative, No acute distress HEENT: Atraumatic, Mucous membr. moist/pink Lungs: Clear to auscultation, Normal air movement Heart: Other (AFIB RVR) Abdomen: Soft, No tenderness Extremities: No cyanosis, No edema Skin: No breakdown, No significant lesion Neuro: Normal speech, Sensation intact Psych/Mental Status: Mental status NL, Mood NL MUSCULOSKELETAL: Osteoarthritic changes both hands VITALS VITALS Vital Signs Date Time Temp Pulse Resp B/P (MAP) Pulse Ox O2 Delivery O2 Flow Rate FiO2 09/27/18 07:08 100.1 100.1 09/27/18 07:04 145 112/72 (85) 09/27/18 07:03 97 Room Air 09/27/18 05:45 16 LABS Lab: Laboratory Tests Test 09/26/18 11:45 09/26/18 17:17 Glucose (Fingerstick) 262 mg/dL (70-99) 175 mg/dL (70-99) ASSESSMENT/PLAN ASSESSMENT/PLAN 1. AFIB RVR: new onset. #2 contributing. 2. Aseptic Meningitis/fever/BEAL: S/P LP 3. HTN: controlled 4. DM/HLP: per PCP 5. Obese Recommendations 1. Received IV lopressor, cardizem drip was started. DC cardizem drip and start on lopressor 25 mg q6 PO. Dig IVx1. 2. ASA. Start IVF x1L. Hold off other BP meds pending BP trend to make room for rate controlling agents. 3. TTE once HR is better. Continue with antipyretics WHITNEY HARRISON APRN Sep 27, 2018 08:36
[2018-09-27] MEDS: GLIMEPIRIDE 2 MG TABLET. PO SCH (08:48)
[2018-09-27] MEDS: LISINOPRIL 10 MG TABLET PO SCH (08:48)
[2018-09-27] MEDS: LACTOBACILLUS RHAMNOSUS GG 1 CAPSULE. PO SCH ×2 (08:48→20:25)
[2018-09-27] MEDS ORDERED: IV NORMAL SALINE 1000ML BAG 1,000 ML IV ONE (09:15)
[2018-09-27] MEDS ORDERED: DIGOXIN IV 500 MCG/2 ML AMPUL. IV ONE (09:15)
--- NOTE | 2018-09-27 09:58 | PDOC ---
PROGRESS NOTES Chief Complaint Chief Complaint New Onset A. fib RVR Fevers,resolved could be viral syndrome, neg work up including LP DM on [facility] History of Present Illness History of Present Illness Went into A. fib RVR today hence transferred to [facility]. New for him no history of arrhythmia. Did complain of palpitations but no chest pain or lightheadedness Heart rate is 140s at rest trying to eat breakfast Cardiology has seen and has stopped Cardizem drip but started on rate controlling agents by mouth No fevers overnight Some cultures/West Nile virus still pending Plan: Rate control per cardiology Follow cultures-antibiotic per ID Blood sugars are running high-I reconciled home meds including metformin 1000 twice a day, glyburide once a day and other medications namely lisinopril 10 and atorvastatin daily at bedtime d/w with family at bedside Vitals Vitals Vital Signs Date Time Temp Pulse Resp B/P (MAP) Pulse Ox O2 Delivery O2 Flow Rate FiO2 09/27/18 09:05 Room Air 09/27/18 08:48 128 112/72 09/27/18 07:08 100.1 100.1 09/27/18 07:03 97 09/27/18 05:45 16 Physical Exam Physical Exam CONSTITUTIONAL: He is pleasant. He is cooperative. He has no acute distress. HEENT: Pupils equal and reactive. He does have some cataracts. Extraocular muscles were intact without discomfort. Oral cavity, oropharynx, his front teeth are metal capped, otherwise are clean. NECK: Supple. Good range of motion. LUNGS: Clear to auscultation. HEART: S1, S2. ABDOMEN: Soft, nontender, nondistended. No guarding or rebound. EXTREMITIES: Without clubbing or cyanosis. No edema. SKIN: Warm to touch without signs of rash. He has no gross joint inflammation. NEUROLOGIC: He is nonfocal, answers questions appropriately. PSYCHIATRIC: Affect is appropriate. General: Alert, Oriented X3, Cooperative, No acute distress Heart: Other (AFIB RVR) Lungs: Clear Abdomen: Soft, No tenderness Extremities: No cyanosis, No edema Skin: No breakdown, No significant lesion Labs LABS Laboratory Tests Test 09/26/18 11:45 09/26/18 17:17 Glucose (Fingerstick) 262 mg/dL (70-99) 175 mg/dL (70-99) Review of Systems Review of Systems A 14 point ROS was completed with the following noted as positive: Other systems reviewed and negative. \CONSTITUTIONAL: No fever or chills EYES: No recent changes SKIN: No rash or itching CARDIOVASCULAR: No chest pain, syncope, palpitations, or edema RESPIRATORY: No SOB or cough GASTROINTESTINAL: No nausea, vomiting or abdominal pain NEUROLOGICAL: No headaches or weakness ENDOCRINE: No cold or heat intolerance GENITOURINARY: No urgency or frequency of urination MUSCULOSKELETAL: No back pain or joint pain LYMPHATICS: No enlarged lymph nodes PSYCHIATRIC: No anxiety or depression Comment Review of Relevant I have reviewed the following items delphine (where applicable) has been applied. Labs Laboratory Tests Test 09/25/18 15:20 09/25/18 15:37 09/25/18 15:45 09/25/18 19:10 Influenza Type A Antigen Negative (NEGATIVE) Influenza Type B Antigen Negative (NEGATIVE) Urine Collection Type Unknown Urine Color Yellow Urine Clarity Clear Urine pH 7.5 Urine Specific [place] 1.020 Urine Protein 100 mg/dL (NEG-TRACE) Urine Glucose (UA) Negative mg/dL (NEG) Urine Ketones (Stick) Negative mg/dL (NEG) Urine Blood Negative (NEG) Urine Nitrite Negative (NEG) Urine Bilirubin Negative (NEG) Urine Urobilinogen Dipstick 0.2 mg/dL (0.2 mg/dL) Urine Leukocyte Esterase Negative (NEG) Urine RBC 1-2 /HPF (0-2) Urine WBC Occ /HPF (0-4) Urine Squamous Epithelial Cells Few /LPF Urine Bacteria 0 /HPF (0-FEW) Urine Mucus Slight /LPF White Blood Count 6.5 x10^3/uL (4.0-11.0) Red Blood Count 4.96 x10^6/uL (4.30-5.70) Hemoglobin 12.4 g/dL (13.0-17.5) Hematocrit 37.8 % (39.0-53.0) Mean Corpuscular Volume 76 fL (79-100) Mean Corpuscular Hemoglobin 25 pg (25-35) Mean Corpuscular Hemoglobin Concent 33 g/dL (31-37) Red Cell Distribution Width 15.8 % (11.5-14.5) Platelet Count 182 x10^3/uL (140-400) Neutrophils (%) (Auto) 82 % (31-73) Lymphocytes (%) (Auto) 10 % (24-48) Monocytes (%) (Auto) 7 % (0-9) Eosinophils (%) (Auto) 1 % (0-3) Basophils (%) (Auto) 1 % (0-3) Neutrophils # (Auto) 5.3 x10^3uL (1.8-7.7) Lymphocytes # (Auto) 0.6 x10^3/uL (1.0-4.8) Monocytes # (Auto) 0.5 x10^3/uL (0.0-1.1) Eosinophils # (Auto) 0.0 x10^3/uL (0.0-0.7) Basophils # (Auto) 0.0 x10^3/uL (0.0-0.2) Sodium Level 137 mmol/L (136-145) Potassium Level 3.9 mmol/L (3.5-5.1) Chloride Level 100 mmol/L (98-107) Carbon Dioxide Level 26 mmol/L (21-32) Anion Gap 11 (6-14) Blood Urea Nitrogen 10 mg/dL (8-26) Creatinine 0.9 mg/dL (0.7-1.3) Estimated GFR (Cockcroft-Gault) 84.4 BUN/Creatinine Ratio 11 (6-20) Glucose Level 146 mg/dL (70-99) Lactic Acid Level 1.6 mmol/L (0.4-2.0) Calcium Level 9.0 mg/dL (8.5-10.1) Total Bilirubin 0.3 mg/dL (0.2-1.0) Aspartate Amino Transf (AST/SGOT) 20 U/L (15-37) Alanine Aminotransferase (ALT/SGPT) 26 U/L (16-63) Alkaline Phosphatase 63 U/L (46-116) Troponin I Quantitative < 0.017 ng/mL (0.000-0.055) Total Protein 7.7 g/dL (6.4-8.2) Albumin 3.9 g/dL (3.4-5.0) Albumin/Globulin Ratio 1.0 (1.0-1.7) CSF Tube Number 3 CSF Volume 3.0 CSF Color Colorless CSF Clarity Clear CSF WBC 9 CSF RBC 2 CSF Mononuclear WBCs % 100 % CSF Polynuclear WBCs (%) 0 % CSF Glucose 89 mg/dL (37-70) CSF Total Protein 56.8 mg/dL (15.0-45.0) Test 09/25/18 21:11 09/26/18 07:00 09/26/18 07:58 09/26/18 11:45 Glucose (Fingerstick) 152 mg/dL (70-99) 200 mg/dL (70-99) 262 mg/dL (70-99) White Blood Count 6.3 x10^3/uL (4.0-11.0) Red Blood Count 4.91 x10^6/uL (4.30-5.70) Hemoglobin 12.4 g/dL (13.0-17.5) Hematocrit 37.5 % (39.0-53.0) Mean Corpuscular Volume 76 fL (79-100) Mean Corpuscular Hemoglobin 25 pg (25-35) Mean Corpuscular Hemoglobin Concent 33 g/dL (31-37) Red Cell Distribution Width 15.9 % (11.5-14.5) Platelet Count 183 x10^3/uL (140-400) Neutrophils (%) (Auto) 81 % (31-73) Lymphocytes (%) (Auto) 11 % (24-48) Monocytes (%) (Auto) 8 % (0-9) Eosinophils (%) (Auto) 0 % (0-3) Basophils (%) (Auto) 1 % (0-3) Neutrophils # (Auto) 5.1 x10^3uL (1.8-7.7) Lymphocytes # (Auto) 0.7 x10^3/uL (1.0-4.8) Monocytes # (Auto) 0.5 x10^3/uL (0.0-1.1) Eosinophils # (Auto) 0.0 x10^3/uL (0.0-0.7) Basophils # (Auto) 0.0 x10^3/uL (0.0-0.2) Erythrocyte Sedimentation Rate 12 (0-15) Sodium Level 137 mmol/L (136-145) Potassium Level 3.6 mmol/L (3.5-5.1) Chloride Level 100 mmol/L (98-107) Carbon Dioxide Level 25 mmol/L (21-32) Anion Gap 12 (6-14) Blood Urea Nitrogen 7 mg/dL (8-26) Creatinine 0.9 mg/dL (0.7-1.3) Estimated GFR (Cockcroft-Gault) 84.4 Glucose Level 194 mg/dL (70-99) Calcium Level 8.7 mg/dL (8.5-10.1) Test 09/26/18 17:17 Glucose (Fingerstick) 175 mg/dL (70-99) Laboratory Tests Test 09/26/18 11:45 09/26/18 17:17 Glucose (Fingerstick) 262 mg/dL (70-99) 175 mg/dL (70-99) Microbiology 09/25/18 Blood Culture - Preliminary, Resulted NO GROWTH AFTER 1 DAY 09/25/18 CSF Gram Stain - Final, Complete Medications Current Medications Sodium Chloride 1,000 ml @ 1,000 mls/hr 1X ONCE IV Last administered on 16:25; Start 09/25/18 at 15:45; Stop 09/25/18 at 16:44; Status DC Acetaminophen (Tylenol) 1,000 mg 1X ONCE PO Last administered on 09/25/18at 16: 25; Start 09/25/18 at 15:45; Stop 09/25/18 at 15:46; Status DC Lidocaine HCl 10 ml 1X ONCE IJ Last administered on 09/25/18at 18:50; Start at 18:15; Stop 09/25/18 at 18:16; Status DC Acetaminophen (Tylenol) 650 mg PRN Q4HRS PRN PO FEVER Last administered on 09/26at 15:29; Start 09/25/18 at 20:00; Stop 09/26/18 at 19:59; Status DC Ceftriaxone Sodium 2 gm/ Dextrose 100 ml @ 200 mls/hr Q24H IV Last administered on 09/26/18at 23:00; Start 09/25/18 at 22:00 Vancomycin HCl (Vanco Per Pharmacy) 1 each PRN DAILY PRN MC SEE COMMENTS Last administered on 09/26/18at 06:24; Start 09/25/18 at 21:45; Stop 09/26/18 at 09:00 ; Status DC Acyclovir Sodium 310 mg/Dextrose 106.2 ml @ 106.2 mls/ hr Q8HRS IV Last administered on 09/26/18at 06:15; Start 09/25/18 at 22:00; Stop 09/26/18 at 09:00 ; Status DC Vancomycin HCl 2 gm/Sodium Chloride 500 ml @ 250 mls/hr 1X ONCE IV Last administered on 09/26/18at 00:00; Start 09/26/18 at 00:00; Stop 09/26/18 at 01:59 ; Status DC Influenza Virus Vaccine (Afluria Trivalent [id number] Syringe) 0.5 ml ONCE ONCE VAX IM ; Start 09/26/18 at 09:00; Stop 09/26/18 at 09:01; Status DC Glimepiride (Amaryl) 2 mg DAILY08 PO Last administered on 09/27/18at 08:48; Start 09/26/18 at 08:00 Atorvastatin Calcium (Lipitor) 40 mg QHS PO Last administered on 09/26/18at 21: 18; Start 09/26/18 at 21:00 Lisinopril (Prinivil) 10 mg DAILY PO ; Start 09/26/18 at 09:00 Vancomycin HCl 1.25 gm/Sodium Chloride 250 ml @ 167 mls/hr Q12H IV ; Start 09/26/18 at 12:00; Stop 09/26/18 at 12:00; Status DC Vancomycin HCl (Vancomycin Trough Level) 1 each 1X ONCE MC ; Start 09/27/18 at 11:30; Stop 09/27/18 at 11:31; Status Cancel Ibuprofen (Motrin) 600 mg PRN Q6HRS PRN PO INFLAMMATION; Start 09/26/18 at 08: 00 Lactobacillus Rhamnosus (Culturelle) 1 cap BID PO Last administered on at 08:48; Start 09/26/18 at 21:00 Metoprolol Tartrate (Lopressor Vial) 5 mg 1X ONCE IVP Last administered on 09/27/18at 06:57; Start 09/27/18 at 06:30; Stop 09/27/18 at 06:31; Status DC Diltiazem HCl 125 mg/Dextrose 125 ml @ 5 mls/hr CONT PRN IV SEE I/O RECORD Last administered on 09/27/18at 07:03; Start 09/27/18 at 06:30; Stop 09/27/18 at 09:14; Status DC Aspirin (Ecotrin) 81 mg DAILYWBKFT PO ; Start 09/27/18 at 09:00 Digoxin (Lanoxin) 500 mcg 1X ONCE IV ; Start 09/27/18 at 09:15; Stop 09/27/18 at 09:19; Status DC Metoprolol Tartrate (Lopressor) 25 mg Q6HRS PO ; Start 09/27/18 at 10:00 Sodium Chloride 1,000 ml @ 75 mls/hr 1X ONCE IV ; Start 09/27/18 at 09:15; Stop 09/27/18 at 22:34 Vitals/I & O Vital Sign - Last 24 Hours 09/26/18 09/26/18 09/26/18 09/26/18 10:36 15:00 19:00 20:00 Temp 99.8 98.9 98.5 99.8 98.9 98.5 Pulse 98 91 100 Resp 18 18 18 B/P (MAP) 118/67 (84) 116/68 (84) 135/63 (87) Pulse Ox 93 95 97 O2 Delivery Room Air Room Air Room Air Room Air 09/26/18 09/27/18 09/27/18 09/27/18 23:00 03:00 05:45 06:57 Temp 98.5 98.0 99.4 98.5 98.0 99.4 Pulse 84 84 176 157 Resp 18 18 16 B/P (MAP) 130/75 (93) 105/61 (76) 129/81 (97) 129/65 Pulse Ox 98 94 95 O2 Delivery Room Air Room Air Room Air 09/27/18 09/27/18 09/27/18 09/27/18 07:03 07:04 07:08 08:00 Temp 100.1 100.1 Pulse 165 145 B/P (MAP) 129/65 (86) 112/72 (85) Pulse Ox 97 O2 Delivery Room Air Room Air 09/27/18 09/27/18 08:48 09:05 Pulse 128 B/P (MAP) 112/72 O2 Delivery Room Air Intake and Output 09/26/18 09/26/18 09/27/18 15:00 23:00 07:00 Intake Total 540 ml Balance 540 ml ALPESH MOORE MD Sep 27, 2018 09:58
[2018-09-27 10:01] LABS: CALCIUM 8.6 mg/dL (8.5-10.1); CREATININE 0.7 mg/dL (0.7-1.3); GFR 112.8; POTASSIUM 3.6 mmol/L (3.5-5.1)
[2018-09-27] MEDS: METOPROLOL TART IMMED RELEASE 25 MG TABLET. PO SCH ×3 (10:05→23:42)
[2018-09-27] MEDS: ASPIRIN ENTERIC COATED 81 MG TABLET.DR. PO SCH (10:05)
[2018-09-27 10:07] LABS: ALBUMIN 3.4 g/dL (3.4-5.0); ALBUMIN/GLOBULIN RATIO 0.9 (1.0-1.7); BASO % 1 % (0-3); EOS % 1 % (0-3); HEMATOCRIT 37.9 % (39.0-53.0); HEMOGLOBIN 12.5 g/dL (13.0-17.5); LYMPH # 1.2 x10^3/uL (1.0-4.8); LYMPH % 18 % (24-48); MEAN CORPUSCULAR HEMOGLOBIN 25 pg (25-35); MEAN CORPUSCULAR HGB CONC 33 g/dL (31-37); MEAN CORPUSCULAR VOLUME 76 fL (79-100); MONO # 0.7 x10^3/uL (0.0-1.1); MONO % 10 % (0-9); NEUT # 4.8 x10^3uL (1.8-7.7); NEUT % 71 % (31-73); PLATELET COUNT 174 x10^3/uL (140-400); RED BLOOD COUNT 4.98 x10^6/uL (4.30-5.70); RED CELL DISTRIBUTION WIDTH 16.2 % (11.5-14.5); TOTAL BILIRUBIN 0.3 mg/dL (0.2-1.0); TOTAL PROTEIN 7.1 g/dL (6.4-8.2); WHITE BLOOD COUNT 6.7 x10^3/uL (4.0-11.0)
[2018-09-27] MEDS ORDERED: DEXTROSE 50% 25 GM / 50ML DISP.SYRIN. IV PRN (12:30)
[2018-09-27] MEDS: INSULIN LISPRO 300 UNITS/3 ML INSULN.PEN. SQ SCH ×2 (13:00→17:15)
--- NOTE | 2018-09-27 13:10 | CARD ---
MR#: [id number] Date of Study: 09/27/2018 Ordering Physician: WHITNEY HARRISON, Referring Physician: ALPESH MOORE Tech: Keisha Can, [facility] APPROVED REPORT EXAM: Two-dimensional and M-mode echocardiogram with Doppler and color Doppler. Other Information Quality : GoodHR: 79bpm Rhythm : NSR INDICATION Atrial Fibrillation 2D DIMENSIONS RVDd3.0 (2.9-3.5cm)IVSd1.2 (0.7-1.1cm) Aortic Root(2D)3.4 (2.0-3.7cm)LVDd5.0 (3.9-5.9cm) LVOT Diameter2.0 (1.8-2.4cm)PWd1.1 (0.7-1.1cm) LVDs3.6 (2.5-4.0cm)FS (%) 27.5 % SV62.6 mlLVEF(%)53.1 (>50%) Aortic Valve AoV Peak Mich.177.3cm/sAoV VTI31.6cm AO Peak GR.12.6mmHgLVOT VTI 19.26cm AO Mean GR.8mmHgAVA (VMAX)2.60cm2 LISSY (VTI)2.60cm2 Mitral Valve MV E Dqpkunps07.0cm/sMV DECEL [id number] MV A Hunonogd74.1cm/sE/A Ratio0.7 MV A [id number] TDI Lateral E' P. V9.40cm/sMedial E' P. V9.33cm/s E/Lateral E'6.5E/Medial E'6.5 Tricuspid Valve TR P. Tihwbmbp895rm/sRAP [id number] TR Peak Gr.[id number] LEFT VENTRICLE The left ventricle is normal size. There is borderline concentric left ventricular hypertrophy. The l eft ventricular systolic function is normal and the ejection fraction is within normal range. The Eje ction Fraction is 50-55%. There is normal LV segmental wall motion. Transmitral Doppler flow pattern is Grade I-abnormal relaxation pattern. RIGHT VENTRICLE The right ventricle is normal size. There is normal right ventricular wall thickness. The right ventr icular systolic function is normal. ATRIA The left atrium size is normal. The right atrium size is normal. The interatrial septum is intact wit h no evidence for an atrial septal defect or patent foramen ovale as noted on 2-D or Doppler imaging. AORTIC VALVE The aortic valve is trileaflet. The aortic valve is normal in structure and function. Doppler and Col or Flow revealed trace aortic regurgitation. There is no significant aortic valvular stenosis. MITRAL VALVE The mitral valve is thickened but opens well. There is no evidence of mitral valve prolapse. There is no mitral valve stenosis. Doppler and Color-flow revealed trace mitral regurgitation. TRICUSPID VALVE The tricuspid valve is normal in structure and function. Doppler and Color Flow revealed trace tricus pid regurgitation. The PA pressure was estimated at 27 mmHg. There is no tricuspid valve prolapse or vegetation. There is no tricuspid valve stenosis. PULMONIC VALVE Pulmonic valve not well visualized. GREAT VESSELS The aortic root is normal in size. The ascending aorta is normal in size. PERICARDIAL EFFUSION There is no evidence of significant pericardial effusion. Critical Notification Critical Value: No <Conclusion> The left ventricle is normal size. The left ventricular systolic function is normal and the ejection fraction is within normal range. The Ejection Fraction is 50-55%. There is borderline concentric left ventricular hypertrophy. There is no significant aortic valvular stenosis. Doppler and Color Flow revealed trace aortic regurgitation. Doppler and Color-flow revealed trace mitral regurgitation. Doppler and Color Flow revealed trace tricuspid regurgitation. The PA pressure was estimated at 27 mmHg. Signed by : Stevie Gonzalez MD Electronically Approved : 09/27/2018 13:10:18
[2018-09-27] MEDS: metFORMIN 500 MG TABLET PO SCH (15:58)
[2018-09-27 20:13] LABS: HEMOGLOBIN A1C 7.2 % (4.8-5.6)
[2018-09-27] MEDS: ATORVASTATIN CALCIUM 40 MG TABLET. PO SCH (20:25)
[2018-09-28 03:20] VITALS: BP 127/69
[2018-09-28] MEDS: METOPROLOL TART IMMED RELEASE 25 MG TABLET. PO SCH (06:10)
[2018-09-28 07:05] VITALS: BP 117/70
[2018-09-28] MEDS: metFORMIN 500 MG TABLET PO SCH (08:37)
[2018-09-28] MEDS: LACTOBACILLUS RHAMNOSUS GG 1 CAPSULE. PO SCH (08:38)
[2018-09-28] MEDS: ASPIRIN ENTERIC COATED 81 MG TABLET.DR. PO SCH (08:38)
[2018-09-28] MEDS: LISINOPRIL 10 MG TABLET PO SCH (08:38)
[2018-09-28] MEDS: GLIMEPIRIDE 2 MG TABLET. PO SCH (08:38)
[2018-09-28] MEDS: INSULIN LISPRO 300 UNITS/3 ML INSULN.PEN. SQ SCH ×2 (08:41→12:00)
--- NOTE | 2018-09-28 08:59 | PDOC ---
CARDIO Progress Notes Date and Time Date of Service 09/28/2018 Time of Evaluation 0840 Subjective Subjective: No Chest Pain, No shortness of breath, No Palpitations Vitals Vitals Vital Signs Date Time Temp Pulse Resp B/P (MAP) Pulse Ox O2 Delivery O2 Flow Rate FiO2 09/28/18 08:38 80 117/70 09/28/18 07:05 99.5 18 93 Room Air 99.5 Weight Weight [ ] Input and Output Intake and Output Intake and Output 09/28/18 07:00 Intake Total 1900 ml Balance 1900 ml Intake Oral 900 ml IV Total 1000 ml # Voids 3 Laboratory Labs Laboratory Tests Test 09/27/18 09:25 09/27/18 11:58 09/27/18 17:11 09/27/18 20:24 White Blood Count 6.7 x10^3/uL (4.0-11.0) Red Blood Count 4.98 x10^6/uL (4.30-5.70) Hemoglobin 12.5 g/dL (13.0-17.5) Hematocrit 37.9 % (39.0-53.0) Mean Corpuscular Volume 76 fL (79-100) Mean Corpuscular Hemoglobin 25 pg (25-35) Mean Corpuscular Hemoglobin Concent 33 g/dL (31-37) Red Cell Distribution Width 16.2 % (11.5-14.5) Platelet Count 174 x10^3/uL (140-400) Neutrophils (%) (Auto) 71 % (31-73) Lymphocytes (%) (Auto) 18 % (24-48) Monocytes (%) (Auto) 10 % (0-9) Eosinophils (%) (Auto) 1 % (0-3) Basophils (%) (Auto) 1 % (0-3) Neutrophils # (Auto) 4.8 x10^3uL (1.8-7.7) Lymphocytes # (Auto) 1.2 x10^3/uL (1.0-4.8) Monocytes # (Auto) 0.7 x10^3/uL (0.0-1.1) Eosinophils # (Auto) 0.0 x10^3/uL (0.0-0.7) Basophils # (Auto) 0.0 x10^3/uL (0.0-0.2) Sodium Level 140 mmol/L (136-145) Potassium Level 3.6 mmol/L (3.5-5.1) Chloride Level 102 mmol/L (98-107) Carbon Dioxide Level 25 mmol/L (21-32) Anion Gap 13 (6-14) Blood Urea Nitrogen 7 mg/dL (8-26) Creatinine 0.7 mg/dL (0.7-1.3) Estimated GFR (Cockcroft-Gault) 112.8 BUN/Creatinine Ratio 10 (6-20) Glucose Level 176 mg/dL (70-99) Hemoglobin A1c 7.2 % (4.8-5.6) Calcium Level 8.6 mg/dL (8.5-10.1) Magnesium Level 1.9 mg/dL (1.8-2.4) Total Bilirubin 0.3 mg/dL (0.2-1.0) Aspartate Amino Transf (AST/SGOT) 15 U/L (15-37) Alanine Aminotransferase (ALT/SGPT) 24 U/L (16-63) Alkaline Phosphatase 57 U/L (46-116) Troponin I Quantitative < 0.017 ng/mL (0.000-0.055) Total Protein 7.1 g/dL (6.4-8.2) Albumin 3.4 g/dL (3.4-5.0) Albumin/Globulin Ratio 0.9 (1.0-1.7) Procalcitonin < 0.10 ng/mL (0.00-0.10) Thyroid Stimulating Hormone (TSH) 1.830 uIU/mL (0.358-3.74) Glucose (Fingerstick) 240 mg/dL (70-99) 243 mg/dL (70-99) 151 mg/dL (70-99) Test 09/28/18 08:11 Glucose (Fingerstick) 199 mg/dL (70-99) Microbiology Micro Microbiology 09/25/18 Blood Culture - Preliminary, Resulted NO GROWTH AFTER 2 DAYS 09/25/18 CSF Gram Stain - Final, Complete Physical Exam HEENT: Neck Supple W Full Motion Chest: Symmetric LUNGS: Clear to Auscultation Heart: S1S2, RRR (SR) Abdomen: Soft N/T Extremities: No Calf Tenderness Neurology: alert, oriented, follow commands Assessment Assessment 1. AFIB RVR: new onset. #2 contributing. Converted around noon yesterday after Dig and metoprolol 2. Aseptic Meningitis/fever/BEAL: S/P LP 3. HTN: controlled 4. DM/HLP: per PCP 5. Obese Recommendations 1. No further recurrence of AFIB. Will adjust metoprolol to 50 mg BID and note BP trend. Continue on ASA. Decrease lisinopril to accommodate BB. 2. His EF and WM nml. Given his cardiac risks factors with this new AFIB will consider for outpt stress test for further risks stratification. 3. Outpt event monitor for 2 weeks would also be considered and note any further paroxysms. Follow up in office in 4 weeks. WHITNEY HARRISON APRN Sep 28, 2018 08:59
[2018-09-28] MEDS ORDERED: LISINOPRIL 10 MG TABLET PO SCH (09:00)
[2018-09-28 10:03] LABS: CALCIUM 8.7 mg/dL (8.5-10.1); CREATININE 0.9 mg/dL (0.7-1.3); GFR 84.4; MAGNESIUM 1.8 mg/dL (1.8-2.4); POTASSIUM 3.9 mmol/L (3.5-5.1)
--- NOTE | 2018-09-28 10:29 | PDOC ---
PROGRESS NOTES Chief Complaint Chief Complaint New Onset A. fib RVR resolved Fevers,resolved could be viral syndrome, neg work up including LP DM on [facility] Assessment/Plan Assessment/Plan Fevers, could be viral syndrome Aseptic Meningitis Fever - DM BEAL PLAN: Id following [place] serology home today History of Present Illness History of Present Illness Went into A. fib RVR today hence transferred to [facility]. New for him no history of arrhythmia. Did complain of palpitations but no chest pain or lightheadedness Heart rate is 140s at rest trying to eat breakfast Cardiology has seen and has stopped Cardizem drip but started on rate controlling agents by mouth No fevers overnight Some cultures/[place] virus still pending Plan: Rate control per cardiology Follow cultures-antibiotic per ID Blood sugars are running high-I reconciled home meds including metformin 1000 twice a day, glyburide once a day and other medications namely lisinopril 10 and atorvastatin daily at bedtime d/w with family at bedside Vitals Vitals Vital Signs Date Time Temp Pulse Resp B/P (MAP) Pulse Ox O2 Delivery O2 Flow Rate FiO2 09/28/18 08:38 80 117/70 09/28/18 07:35 Room Air 09/28/18 07:05 99.5 18 93 99.5 Physical Exam Physical Exam CONSTITUTIONAL: He is pleasant. He is cooperative. He has no acute distress. HEENT: Pupils equal and reactive. He does have some cataracts. Extraocular muscles were intact without discomfort. Oral cavity, oropharynx, his front teeth are metal capped, otherwise are clean. NECK: Supple. Good range of motion. LUNGS: Clear to auscultation. HEART: S1, S2. ABDOMEN: Soft, nontender, nondistended. No guarding or rebound. EXTREMITIES: Without clubbing or cyanosis. No edema. No joint swelling SKIN: Warm to touch without signs of rash. He has no gross joint inflammation. NEUROLOGIC: He is nonfocal, answers questions appropriately. PSYCHIATRIC: Affect is appropriate. General: Alert, Oriented X3, Cooperative, No acute distress Heart: Regular rate, Other (AFIB RVR) Lungs: Clear Abdomen: Soft, No tenderness Extremities: No cyanosis, No edema Skin: No breakdown, No significant lesion Labs LABS Laboratory Tests Test 09/27/18 11:58 09/27/18 17:11 09/27/18 20:24 09/28/18 08:11 Glucose (Fingerstick) 240 mg/dL (70-99) 243 mg/dL (70-99) 151 mg/dL (70-99) 199 mg/dL (70-99) Test 09/28/18 09:25 Sodium Level 137 mmol/L (136-145) Potassium Level 3.9 mmol/L (3.5-5.1) Chloride Level 100 mmol/L (98-107) Carbon Dioxide Level 26 mmol/L (21-32) Anion Gap 11 (6-14) Blood Urea Nitrogen 9 mg/dL (8-26) Creatinine 0.9 mg/dL (0.7-1.3) Estimated GFR (Cockcroft-Gault) 84.4 Glucose Level 218 mg/dL (70-99) Calcium Level 8.7 mg/dL (8.5-10.1) Magnesium Level 1.8 mg/dL (1.8-2.4) Comment Review of Relevant I have reviewed the following items delphine (where applicable) has been applied. Labs Laboratory Tests Test 09/26/18 11:45 09/26/18 17:17 09/27/18 09:25 09/27/18 11:58 Glucose (Fingerstick) 262 mg/dL (70-99) 175 mg/dL (70-99) 240 mg/dL (70-99) White Blood Count 6.7 x10^3/uL (4.0-11.0) Red Blood Count 4.98 x10^6/uL (4.30-5.70) Hemoglobin 12.5 g/dL (13.0-17.5) Hematocrit 37.9 % (39.0-53.0) Mean Corpuscular Volume 76 fL (79-100) Mean Corpuscular Hemoglobin 25 pg (25-35) Mean Corpuscular Hemoglobin Concent 33 g/dL (31-37) Red Cell Distribution Width 16.2 % (11.5-14.5) Platelet Count 174 x10^3/uL (140-400) Neutrophils (%) (Auto) 71 % (31-73) Lymphocytes (%) (Auto) 18 % (24-48) Monocytes (%) (Auto) 10 % (0-9) Eosinophils (%) (Auto) 1 % (0-3) Basophils (%) (Auto) 1 % (0-3) Neutrophils # (Auto) 4.8 x10^3uL (1.8-7.7) Lymphocytes # (Auto) 1.2 x10^3/uL (1.0-4.8) Monocytes # (Auto) 0.7 x10^3/uL (0.0-1.1) Eosinophils # (Auto) 0.0 x10^3/uL (0.0-0.7) Basophils # (Auto) 0.0 x10^3/uL (0.0-0.2) Sodium Level 140 mmol/L (136-145) Potassium Level 3.6 mmol/L (3.5-5.1) Chloride Level 102 mmol/L (98-107) Carbon Dioxide Level 25 mmol/L (21-32) Anion Gap 13 (6-14) Blood Urea Nitrogen 7 mg/dL (8-26) Creatinine 0.7 mg/dL (0.7-1.3) Estimated GFR (Cockcroft-Gault) 112.8 BUN/Creatinine Ratio 10 (6-20) Glucose Level 176 mg/dL (70-99) Hemoglobin A1c 7.2 % (4.8-5.6) Calcium Level 8.6 mg/dL (8.5-10.1) Magnesium Level 1.9 mg/dL (1.8-2.4) Total Bilirubin 0.3 mg/dL (0.2-1.0) Aspartate Amino Transf (AST/SGOT) 15 U/L (15-37) Alanine Aminotransferase (ALT/SGPT) 24 U/L (16-63) Alkaline Phosphatase 57 U/L (46-116) Troponin I Quantitative < 0.017 ng/mL (0.000-0.055) Total Protein 7.1 g/dL (6.4-8.2) Albumin 3.4 g/dL (3.4-5.0) Albumin/Globulin Ratio 0.9 (1.0-1.7) Procalcitonin < 0.10 ng/mL (0.00-0.10) Thyroid Stimulating Hormone (TSH) 1.830 uIU/mL (0.358-3.74) Test 09/27/18 17:11 09/27/18 20:24 09/28/18 08:11 09/28/18 09:25 Glucose (Fingerstick) 243 mg/dL (70-99) 151 mg/dL (70-99) 199 mg/dL (70-99) Sodium Level 137 mmol/L (136-145) Potassium Level 3.9 mmol/L (3.5-5.1) Chloride Level 100 mmol/L (98-107) Carbon Dioxide Level 26 mmol/L (21-32) Anion Gap 11 (6-14) Blood Urea Nitrogen 9 mg/dL (8-26) Creatinine 0.9 mg/dL (0.7-1.3) Estimated GFR (Cockcroft-Gault) 84.4 Glucose Level 218 mg/dL (70-99) Calcium Level 8.7 mg/dL (8.5-10.1) Magnesium Level 1.8 mg/dL (1.8-2.4) Laboratory Tests Test 09/27/18 11:58 09/27/18 17:11 09/27/18 20:24 09/28/18 08:11 Glucose (Fingerstick) 240 mg/dL (70-99) 243 mg/dL (70-99) 151 mg/dL (70-99) 199 mg/dL (70-99) Test 09/28/18 09:25 Sodium Level 137 mmol/L (136-145) Potassium Level 3.9 mmol/L (3.5-5.1) Chloride Level 100 mmol/L (98-107) Carbon Dioxide Level 26 mmol/L (21-32) Anion Gap 11 (6-14) Blood Urea Nitrogen 9 mg/dL (8-26) Creatinine 0.9 mg/dL (0.7-1.3) Estimated GFR (Cockcroft-Gault) 84.4 Glucose Level 218 mg/dL (70-99) Calcium Level 8.7 mg/dL (8.5-10.1) Magnesium Level 1.8 mg/dL (1.8-2.4) Microbiology 09/25/18 Blood Culture - Preliminary, Resulted NO GROWTH AFTER 2 DAYS 09/25/18 CSF Gram Stain - Final, Complete Medications Current Medications Sodium Chloride 1,000 ml @ 1,000 mls/hr 1X ONCE IV Last administered on at 16:25; Start 09/25/18 at 15:45; Stop 09/25/18 at 16:44; Status DC Acetaminophen (Tylenol) 1,000 mg 1X ONCE PO Last administered on 09/25/18at 16: 25; Start 09/25/18 at 15:45; Stop 09/25/18 at 15:46; Status DC Lidocaine HCl 10 ml 1X ONCE IJ Last administered on 09/25/18at 18:50; Start at 18:15; Stop 09/25/18 at 18:16; Status DC Acetaminophen (Tylenol) 650 mg PRN Q4HRS PRN PO FEVER Last administered on 09/26at 15:29; Start 09/25/18 at 20:00; Stop 09/26/18 at 19:59; Status DC Ceftriaxone Sodium 2 gm/ Dextrose 100 ml @ 200 mls/hr Q24H IV Last administered on 09/26/18at 23:00; Start 09/25/18 at 22:00; Stop 09/27/18 at 11:36 ; Status DC Vancomycin HCl (Vanco Per Pharmacy) 1 each PRN DAILY PRN MC SEE COMMENTS Last administered on 09/26/18at 06:24; Start 09/25/18 at 21:45; Stop 09/26/18 at 09:00 ; Status DC Acyclovir Sodium 310 mg/Dextrose 106.2 ml @ 106.2 mls/ hr Q8HRS IV Last administered on 09/26/18at 06:15; Start 09/25/18 at 22:00; Stop 09/26/18 at 09:00 ; Status DC Vancomycin HCl 2 gm/Sodium Chloride 500 ml @ 250 mls/hr 1X ONCE IV Last administered on 09/26/18at 00:00; Start 09/26/18 at 00:00; Stop 09/26/18 at 01:59 ; Status DC Influenza Virus Vaccine (Afluria Trivalent [id number] Syringe) 0.5 ml ONCE ONCE VAX IM ; Start 09/26/18 at 09:00; Stop 09/26/18 at 09:01; Status DC Glimepiride (Amaryl) 2 mg DAILY08 PO Last administered on 09/28/18at 08:38; Start 09/26/18 at 08:00 Atorvastatin Calcium (Lipitor) 40 mg QHS PO Last administered on 09/27/18at 20: 25; Start 09/26/18 at 21:00 Lisinopril (Prinivil) 10 mg DAILY PO Last administered on 09/28/18 08:38; Start 09/26/18 at 09:00; Stop 09/28/18 at 09:00; Status DC Vancomycin HCl 1.25 gm/Sodium Chloride 250 ml @ 167 mls/hr Q12H IV ; Start 09/26/18 at 12:00; Stop 09/26/18 at 12:00; Status DC Vancomycin HCl (Vancomycin Trough Level) 1 each 1X ONCE MC ; Start 09/27/18 at 11:30; Stop 09/27/18 at 11:31; Status Cancel Ibuprofen (Motrin) 600 mg PRN Q6HRS PRN PO INFLAMMATION Last administered on at 15:58; Start 09/26/18 at 08:00 Lactobacillus Rhamnosus (Culturelle) 1 cap BID PO Last administered on at 08:38; Start 09/26/18 at 21:00 Metoprolol Tartrate (Lopressor Vial) 5 mg 1X ONCE IVP Last administered on 09/27/18at 06:57; Start 09/27/18 at 06:30; Stop 09/27/18 at 06:31; Status DC Diltiazem HCl 125 mg/Dextrose 125 ml @ 5 mls/hr CONT PRN IV SEE I/O RECORD Last administered on 09/27/18at 07:03; Start 09/27/18 at 06:30; Stop 09/27/18 at 09:14; Status DC Aspirin (Ecotrin) 81 mg DAILYWBKFT PO Last administered on 09/28/18at 08:38; Start 09/27/18 at 09:00 Digoxin (Lanoxin) 500 mcg 1X ONCE IV Last administered on 09/27/18at 09:15; Start 09/27/18 at 09:15; Stop 09/27/18 at 09:19; Status DC Metoprolol Tartrate (Lopressor) 25 mg Q6HRS PO Last administered on 09/28/18at 06:10; Start 09/27/18 at 10:00; Stop 09/28/18 at 09:00; Status DC Sodium Chloride 1,000 ml @ 75 mls/hr 1X ONCE IV Last administered on at 10:05; Start 09/27/18 at 09:15; Stop 09/27/18 at 22:34; Status DC Metformin HCl (Glucophage) 1,000 mg BIDWMEALS PO Last administered on at 08:37; Start 09/27/18 at 17:00 Insulin Human Lispro (HumaLOG) 0-9 UNITS TIDWMEALS SQ Last administered on 09/28at 08:41; Start 09/27/18 at 13:00 Dextrose (Dextrose 50%-Water Syringe) 12.5 gm PRN Q15MIN PRN IV SEE COMMENTS; Start 09/27/18 at 12:30 Lisinopril (Prinivil) 5 mg DAILY PO ; Start 09/28/18 at 09:00; Stop 09/28/18 at 09:14; Status DC Metoprolol Tartrate (Lopressor) 50 mg BID PO ; Start 09/28/18 at 21:00 Lisinopril (Prinivil) 5 mg DAILY PO ; Start 09/29/18 at 09:00 Vitals/I & O Vital Sign - Last 24 Hours 09/27/18 09/27/18 09/27/18 09/27/18 11:41 15:21 17:12 19:00 Temp 98.6 100.4 98.6 100.4 Pulse 77 95 103 95 Resp 16 B/P (MAP) 106/65 (79) 120/60 (80) 120/60 Pulse Ox 97 96 O2 Delivery Room Air Room Air 09/27/18 09/27/18 09/27/18 09/27/18 20:00 20:21 23:24 23:42 Temp 97.6 97.9 97.6 97.9 Pulse 72 104 104 Resp 18 18 B/P (MAP) 104/57 (73) 134/61 (85) 134/61 Pulse Ox 95 96 O2 Delivery Room Air Room Air Room Air 09/28/18 09/28/18 09/28/18 09/28/18 03:20 06:10 07:05 07:35 Temp 99.9 99.5 99.9 99.5 Pulse 96 96 80 Resp 18 18 B/P (MAP) 127/69 (88) 127/69 117/70 (86) Pulse Ox 95 93 O2 Delivery Room Air Room Air Room Air 09/28/18 08:38 Pulse 80 B/P (MAP) 117/70 Intake and Output 09/27/18 09/27/18 09/28/18 15:00 23:00 07:00 Intake Total 400 ml 1500 ml Balance 400 ml 1500 ml LEONILA SILVERIO MD Sep 28, 2018 10:29
--- NOTE | 2018-09-28 10:45 | PDOC ---
Infectious Disease Note Subjective Subjective Feeling well Denies F/BEAL/N Wants to go home Vital Sign Vital Signs Vital Signs Date Time Temp Pulse Resp B/P (MAP) Pulse Ox O2 Delivery O2 Flow Rate FiO2 09/28/18 08:38 80 117/70 09/28/18 07:35 Room Air 09/28/18 07:05 99.5 18 93 99.5 Physical Exam PHYSICAL EXAM CONSTITUTIONAL: He is pleasant. He is cooperative. He has no acute distress.Sitting on side of bed HEENT: Pupils equal and reactive. He does have some cataracts. Oral cavity, oropharynx, his front teeth are metal capped, otherwise are clean. NECK: Supple. Good range of motion. LUNGS: Clear to auscultation. HEART: S1, S2. ABDOMEN: Soft, nontender, nondistended. No guarding or rebound. EXTREMITIES: Without clubbing or cyanosis. No edema. No joint swelling SKIN: Warm to touch without signs of rash. He has no gross joint inflammation. NEUROLOGIC: He is nonfocal, answers questions appropriately. PSYCHIATRIC: Affect is appropriate. Labs Lab Laboratory Tests Test 09/27/18 11:58 09/27/18 17:11 09/27/18 20:24 09/28/18 08:11 Glucose (Fingerstick) 240 mg/dL (70-99) 243 mg/dL (70-99) 151 mg/dL (70-99) 199 mg/dL (70-99) Test 09/28/18 09:25 Sodium Level 137 mmol/L (136-145) Potassium Level 3.9 mmol/L (3.5-5.1) Chloride Level 100 mmol/L (98-107) Carbon Dioxide Level 26 mmol/L (21-32) Anion Gap 11 (6-14) Blood Urea Nitrogen 9 mg/dL (8-26) Creatinine 0.9 mg/dL (0.7-1.3) Estimated GFR (Cockcroft-Gault) 84.4 Glucose Level 218 mg/dL (70-99) Calcium Level 8.7 mg/dL (8.5-10.1) Magnesium Level 1.8 mg/dL (1.8-2.4) Micro Microbiology 09/25/18 Blood Culture - Preliminary, Resulted NO GROWTH AFTER 1 DAY 09/25/18 CSF Gram Stain - Final, Complete Objective Assessment New Afib RVR -this am Aseptic Meningitis -improved Fever - ? viral/reactive with Afib/ s/p Im Flu vaccine 09/26 -curve better overall DM BEAL Plan Plan of Care Ok to d/c home Can F/u with ID if needed [phone] D/w nursing PEPITO FRANZ MD Sep 28, 2018 10:45
[2018-09-28 11:00] VITALS: BP 128/75
--- NOTE | 2018-09-28 11:17 | PDOC3 ---
Discharge Summary Date of Admission: Sep 25, 2018 Date of Discharge: Sep 28, 2018 Follow-Up: 3-5 days Admitting Diagnosis comment: discharge diagnosis Aseptic Meningitis/fever/BEAL: S/P LP A. fib RVR yesterday hence transferred to [facility]. New for him no history of arrhythmia. Did complain of palpitations but no chest pain or lightheadedness Heart rate is 140s at rest trying to eat breakfast Cardiology has seen and has stopped Cardizem drip but started on rate controlling agents by mouth No fevers overnight /West Nile virus still pending Plan: Rate control per cardiology Follow cultures-antibiotic per ID home ok today d/w with family at bedside Vitals Vitals Vital Signs Date Time Temp Pulse Resp B/P (MAP) Pulse Ox O2 Delivery O2 Flow Rate FiO2 09/28/18 08:38 80 117/70 09/28/18 07:35 Room Air 09/28/18 07:05 99.5 18 93 99.5 Physical Exam Physical Exam CONSTITUTIONAL: He is pleasant. He is cooperative. He has no acute distress. HEENT: Pupils equal and reactive. Extraocular muscles were intact without discomfort. Oral cavity, oropharynx, his front teeth are metal capped, clean. NECK: Supple. Good range of motion. LUNGS: Clear to auscultation. HEART: S1, S2. ABDOMEN: Soft, nontender, nondistended. No guarding or rebound. EXTREMITIES: Without clubbing or cyanosis. No edema. No joint swelling SKIN: no gross joint inflammation. NEUROLOGIC: He is nonfocal, answers questions appropriately. PSYCHIATRIC: Affect is appropriate. General: Alert, Oriented X3, Cooperative, No acute distress Heart: Regular rate, Other (AFIB RVR) Lungs: Clear Abdomen: Soft, No tenderness Extremities: No cyanosis, No edema Skin: No breakdown, No significant lesion Brief Hospital Course Mr. Barger is a 68 old [sex] who presented with [ fevere, viral syndrome] CONDITION AT DISCHARGE: Improved Discharge Medications Current Medications Sodium Chloride 1,000 ml @ 1,000 mls/hr 1X ONCE IV Last administered on at 16:25; Start 09/25/18 at 15:45; Stop 09/25/18 at 16:44; Status DC Acetaminophen (Tylenol) 1,000 mg 1X ONCE PO Last administered on 09/25/18 16: 25; Start 09/25/18 at 15:45; Stop 09/25/18 at 15:46; Status DC Lidocaine HCl 10 ml 1X ONCE IJ Last administered on 09/25/18at 18:50; Start at 18:15; Stop 09/25/18 at 18:16; Status DC Acetaminophen (Tylenol) 650 mg PRN Q4HRS PRN PO FEVER Last administered on 09/26at 15:29; Start 09/25/18 at 20:00; Stop 09/26/18 at 19:59; Status DC Ceftriaxone Sodium 2 gm/ Dextrose 100 ml @ 200 mls/hr Q24H IV Last administered on 09/26/18at 23:00; Start 09/25/18 at 22:00; Stop 09/27/18 at 11:36 ; Status DC Vancomycin HCl (Vanco Per Pharmacy) 1 each PRN DAILY PRN MC SEE COMMENTS Last administered on 09/26/18at 06:24; Start 09/25/18 at 21:45; Stop 09/26/18 at 09:00 ; Status DC Acyclovir Sodium 310 mg/Dextrose 106.2 ml @ 106.2 mls/ hr Q8HRS IV Last administered on 09/26/18at 06:15; Start 09/25/18 at 22:00; Stop 09/26/18 at 09:00 ; Status DC Vancomycin HCl 2 gm/Sodium Chloride 500 ml @ 250 mls/hr 1X ONCE IV Last administered on 09/26/18at 00:00; Start 09/26/18 at 00:00; Stop 09/26/18 at 01:59 ; Status DC Influenza Virus Vaccine (Afluria Trivalent [id number] Syringe) 0.5 ml ONCE ONCE VAX IM ; Start 09/26/18 at 09:00; Stop 09/26/18 at 09:01; Status DC Glimepiride (Amaryl) 2 mg DAILY08 PO Last administered on 09/28/18at 08:38; Start 09/26/18 at 08:00 Atorvastatin Calcium (Lipitor) 40 mg QHS PO Last administered on 09/27/18at 20: 25; Start 09/26/18 at 21:00 Lisinopril (Prinivil) 10 mg DAILY PO Last administered on 09/28/18at 08:38; Start 09/26/18 at 09:00; Stop 09/28/18 at 09:00; Status DC Vancomycin HCl 1.25 gm/Sodium Chloride 250 ml @ 167 mls/hr Q12H IV ; Start 09/26/18 at 12:00; Stop 09/26/18 at 12:00; Status DC Vancomycin HCl (Vancomycin Trough Level) 1 each 1X ONCE MC ; Start 09/27/18 at 11:30; Stop 09/27/18 at 11:31; Status Cancel Ibuprofen (Motrin) 600 mg PRN Q6HRS PRN PO INFLAMMATION Last administered on at 15:58; Start 09/26/18 at 08:00 Lactobacillus Rhamnosus (Culturelle) 1 cap BID PO Last administered on at 08:38; Start 09/26/18 at 21:00 Metoprolol Tartrate (Lopressor Vial) 5 mg 1X ONCE IVP Last administered on 09/27/18at 06:57; Start 09/27/18 at 06:30; Stop 09/27/18 at 06:31; Status DC Diltiazem HCl 125 mg/Dextrose 125 ml @ 5 mls/hr CONT PRN IV SEE I/O RECORD Last administered on 09/27/18at 07:03; Start 09/27/18 at 06:30; Stop 09/27/18 at 09:14; Status DC Aspirin (Ecotrin) 81 mg DAILYWBKFT PO Last administered on 09/28/18at 08:38; Start 09/27/18 at 09:00 Digoxin (Lanoxin) 500 mcg 1X ONCE IV Last administered on 09/27/18at 09:15; Start 09/27/18 at 09:15; Stop 09/27/18 at 09:19; Status DC Metoprolol Tartrate (Lopressor) 25 mg Q6HRS PO Last administered on 09/28/18at 06:10; Start 09/27/18 at 10:00; Stop 09/28/18 at 09:00; Status DC Sodium Chloride 1,000 ml @ 75 mls/hr 1X ONCE IV Last administered on at 10:05; Start 09/27/18 at 09:15; Stop 09/27/18 at 22:34; Status DC Metformin HCl (Glucophage) 1,000 mg BIDWMEALS PO Last administered on at 08:37; Start 09/27/18 at 17:00 Insulin Human Lispro (HumaLOG) 0-9 UNITS TIDWMEALS SQ Last administered on 09/28at 08:41; Start 09/27/18 at 13:00 Dextrose (Dextrose 50%-Water Syringe) 12.5 gm PRN Q15MIN PRN IV SEE COMMENTS; Start 09/27/18 at 12:30 Lisinopril (Prinivil) 5 mg DAILY PO ; Start 09/28/18 at 09:00; Stop 09/28/18 at 09:14; Status DC Metoprolol Tartrate (Lopressor) 50 mg BID PO ; Start 09/28/18 at 21:00 Lisinopril (Prinivil) 5 mg DAILY PO ; Start 09/29/18 at 09:00 Vital Signs Vital Signs Date Time Temp Pulse Resp B/P (MAP) Pulse Ox O2 Delivery O2 Flow Rate FiO2 09/28/18 08:38 80 117/70 09/28/18 07:35 Room Air 09/28/18 07:05 99.5 18 93 99.5 Labs Laboratory Tests Test 09/26/18 11:45 09/26/18 17:17 09/27/18 09:25 09/27/18 11:58 Glucose (Fingerstick) 262 mg/dL (70-99) 175 mg/dL (70-99) 240 mg/dL (70-99) White Blood Count 6.7 x10^3/uL (4.0-11.0) Red Blood Count 4.98 x10^6/uL (4.30-5.70) Hemoglobin 12.5 g/dL (13.0-17.5) Hematocrit 37.9 % (39.0-53.0) Mean Corpuscular Volume 76 fL (79-100) Mean Corpuscular Hemoglobin 25 pg (25-35) Mean Corpuscular Hemoglobin Concent 33 g/dL (31-37) Red Cell Distribution Width 16.2 % (11.5-14.5) Platelet Count 174 x10^3/uL (140-400) Neutrophils (%) (Auto) 71 % (31-73) Lymphocytes (%) (Auto) 18 % (24-48) Monocytes (%) (Auto) 10 % (0-9) Eosinophils (%) (Auto) 1 % (0-3) Basophils (%) (Auto) 1 % (0-3) Neutrophils # (Auto) 4.8 x10^3uL (1.8-7.7) Lymphocytes # (Auto) 1.2 x10^3/uL (1.0-4.8) Monocytes # (Auto) 0.7 x10^3/uL (0.0-1.1) Eosinophils # (Auto) 0.0 x10^3/uL (0.0-0.7) Basophils # (Auto) 0.0 x10^3/uL (0.0-0.2) Sodium Level 140 mmol/L (136-145) Potassium Level 3.6 mmol/L (3.5-5.1) Chloride Level 102 mmol/L (98-107) Carbon Dioxide Level 25 mmol/L (21-32) Anion Gap 13 (6-14) Blood Urea Nitrogen 7 mg/dL (8-26) Creatinine 0.7 mg/dL (0.7-1.3) Estimated GFR (Cockcroft-Gault) 112.8 BUN/Creatinine Ratio 10 (6-20) Glucose Level 176 mg/dL (70-99) Hemoglobin A1c 7.2 % (4.8-5.6) Calcium Level 8.6 mg/dL (8.5-10.1) Magnesium Level 1.9 mg/dL (1.8-2.4) Total Bilirubin 0.3 mg/dL (0.2-1.0) Aspartate Amino Transf (AST/SGOT) 15 U/L (15-37) Alanine Aminotransferase (ALT/SGPT) 24 U/L (16-63) Alkaline Phosphatase 57 U/L (46-116) Troponin I Quantitative < 0.017 ng/mL (0.000-0.055) Total Protein 7.1 g/dL (6.4-8.2) Albumin 3.4 g/dL (3.4-5.0) Albumin/Globulin Ratio 0.9 (1.0-1.7) Procalcitonin < 0.10 ng/mL (0.00-0.10) Thyroid Stimulating Hormone (TSH) 1.830 uIU/mL (0.358-3.74) Test 09/27/18 17:11 11/7/18 20:24 09/28/18 08:11 09/28/18 09:25 Glucose (Fingerstick) 243 mg/dL (70-99) 151 mg/dL (70-99) 199 mg/dL (70-99) Sodium Level 137 mmol/L (136-145) Potassium Level 3.9 mmol/L (3.5-5.1) Chloride Level 100 mmol/L (98-107) Carbon Dioxide Level 26 mmol/L (21-32) Anion Gap 11 (6-14) Blood Urea Nitrogen 9 mg/dL (8-26) Creatinine 0.9 mg/dL (0.7-1.3) Estimated GFR (Cockcroft-Gault) 84.4 Glucose Level 218 mg/dL (70-99) Calcium Level 8.7 mg/dL (8.5-10.1) Magnesium Level 1.8 mg/dL (1.8-2.4) Laboratory Tests Test 09/27/18 11:58 09/27/18 17:11 09/27/18 20:24 09/28/18 08:11 Glucose (Fingerstick) 240 mg/dL (70-99) 243 mg/dL (70-99) 151 mg/dL (70-99) 199 mg/dL (70-99) Test 09/28/18 09:25 Sodium Level 137 mmol/L (136-145) Potassium Level 3.9 mmol/L (3.5-5.1) Chloride Level 100 mmol/L (98-107) Carbon Dioxide Level 26 mmol/L (21-32) Anion Gap 11 (6-14) Blood Urea Nitrogen 9 mg/dL (8-26) Creatinine 0.9 mg/dL (0.7-1.3) Estimated GFR (Cockcroft-Gault) 84.4 Glucose Level 218 mg/dL (70-99) Calcium Level 8.7 mg/dL (8.5-10.1) Magnesium Level 1.8 mg/dL (1.8-2.4) Allergies Allergies Coded Allergies Type Severity Reaction Last Updated Verified No Known Drug Allergies 11/22/14 No Disposition/Orders: D/C to Home Patient Instructions d/c planning 35 min see PCP SOON 5-7 DAYS OR RETURN TO ER LEONILA COOK MD Sep 28, 2018 11:17
--- NOTE | 2018-09-28 11:23 | DISCH ---
DISCHARGE INSTRUCTIONS Condition on Discharge Condition on Discharge: Stable Activity After Discharge Activity Instructions for Disc: Resume previous activity Exercise Instruction after Dis: Walk 10 min, 3 x per day Driving Instructions after Dis: Do not drive today Diet after Discharge Diet after Discharge: Regular Checks after Discharge Checks after discharge: Check blood press - daily Contacting the DR. after DC Call your doctor for: If your condition worsens LEONILA SILVERIO MD Sep 28, 2018 11:23
[2018-09-28] MEDS ORDERED: ATOR40TA59 PO (11:29)
[2018-09-28] MEDS ORDERED: IBUP-1227 PO (11:29)
[2018-09-28] MEDS ORDERED: METF500T PO (11:29)
[2018-09-28] MEDS ORDERED: METO50TA6 PO (11:29)
[2018-09-28] MEDS ORDERED: GLIM2TAB PO (11:29)
[2018-09-28] MEDS ORDERED: LISI-338 PO (11:29)
[2018-09-28] MEDS ORDERED: ASPI-612 PO (11:29)
[2018-09-28 13:22] LABS: WEST NILE IGG CSF Negative (Negative); WEST NILE IGM CSF Negative (Negative)
[2018-09-28] MEDS ORDERED: METOPROLOL TART IMMED RELEASE 50 MG TABLET. PO SCH (21:00)
[2018-09-29] MEDS ORDERED: LISINOPRIL 5 MG TABLET. PO SCH (09:00)
[2018-09-29 09:23] LABS: HERPES SIMPLEX TYPE 1 Negative (Negative); HERPES SIMPLEX TYPE 2 Negative (Negative)
[2018-09-29 23:12] LABS: ENTEROVIRUS RNA Negative (Negative)
== END 2018-09-28 13:30 | disposition home or self-care (01) | DRG 871 ==
LOC: ER 14:51 → 5 NORTH 18:08 → OBSVTOIN 18:17 → 5 NORTH 20:15 → CVICU 09-27 09:07
PROVIDERS: ADMIT Internal Medicine; ATTEND Internal Medicine
PROC: 009U3ZX Drainage of Spinal Canal, Percutaneous Approach, Diagnostic (ICD-10-PCS; principal; 2018-09-25)
DX: A41.9 Sepsis, unspecified organism (principal); G03.0 Nonpyogenic meningitis; B34.9 Viral infection, unspecified; I48.91 Unspecified atrial fibrillation; E11.9 Type 2 diabetes mellitus without complications; M19.90 Unspecified osteoarthritis, unspecified site; E66.9 Obesity, unspecified; E78.00 Pure hypercholesterolemia, unspecified; E78.5 Hyperlipidemia, unspecified; I10 Essential (primary) hypertension; Z68.33 Body mass index [BMI] 33.0-33.9, adult; Z79.82 Long term (current) use of aspirin; Z87.891 Personal history of nicotine dependence
CPT/HCPCS: 36415; 62270; 71046; 80048; 80053; 81001; 82945; 82962; 83036; 83605; 83735; 84145; 84157; 84443; 84484; 85025; 85651; 86788; 86789; 87040; 87071; 87075; 87498; 87529; 87804; 89051; 93005; 93306; 96360; 96361; G0379; J0133; J0696; J1160; J1815; J2001; J3370; J3490; J7030; J7040; 99285-25

== ENCOUNTER → 2018-12-05 | Day surgery (SDC) | payer OTHER, MEDICAID ==
[~2018-12-05] MED LIST: AMIO400T PO; ASPI-612 PO; ATOR40TA59 PO; GLIM2TAB PO; IBUP-1227 PO; IV RINGERS,LACTATED 1000ML 1,000 ML IV SCH; LISI-338 PO; METF500T PO; METO50TA6 PO; RIVA20TA2 PO
--- NOTE | 2018-12-05 14:08 | EKG ---
[facility] [address] [place] [id number] Test Date: 2018-12-05 Test Time: 14:05:12 Pat Name: ILIANA ELLINGTON Department: Room: Gender: M Inside Meter Tester: : 1950 Requested By: ANIL REES Order Number: [id number] Reading MD: Tay Crowley Measurements Intervals [place] Rate: 68 P: 29 [place]: 176 QRS: -11 QRSD: 92 T: 31 QT: 418 QTc: 449 Interpretive Statements SINUS RHYTHM LEFTWARD AXIS Electronically Signed On 12-05-2018 15:31:26 MERCHANDISE STOCKER by Tay Crowley
== END | disposition home or self-care (01) ==
LOC: SURG 13:02
PROVIDERS: ATTEND Internal Medicine Cardiovascular Disease
DX: I48.91 Unspecified atrial fibrillation (principal); Z53.8 Procedure and treatment not carried out for other reasons
CPT/HCPCS: 93005

== ENCOUNTER 2021-04-06 19:45 | Emergency (ER) | payer OTHER ==
[~2021-04-06] VITALS: Ht 175.3 cm; Wt 100.0 kg
[~2021-04-06 19:45] MED LIST changes: -AMIO400T PO; +AMIO400T11 PO; -ASPI-612 PO; +ASPI-886 PO; -IBUP-1227 PO; +IBUP-1670 PO; -IV RINGERS,LACTATED 1000ML 1,000 ML IV SCH; -LISI-338 PO; +LISI-517 PO
[2021-04-06] MEDS ORDERED: FAMOTIDINE 20 MG/2 ML VIAL IVP ONE (20:30)
[2021-04-06] MEDS ORDERED: ONDANSETRON PF 4 MG/2 ML VIAL. IVP ONE (20:30)
[2021-04-06] MEDS ORDERED: MORPHINE SULFATE 10 MG/ML VIAL. IV ONE (20:30)
[2021-04-06 20:45] LABS: BASO # 0.1 x10^3/uL (0.0-0.2); BASO % 1 % (0-3); EOS # 0.1 x10^3/uL (0.0-0.7); EOS % 1 % (0-3); HEMATOCRIT 41.5 % (39.0-53.0); HEMOGLOBIN 13.4 g/dL (13.0-17.5); LYMPH # 1.2 x10^3/uL (1.0-4.8); LYMPH % 13 % (24-48); MEAN CORPUSCULAR HEMOGLOBIN 25 pg (25-35); MEAN CORPUSCULAR HGB CONC 32 g/dL (31-37); MEAN CORPUSCULAR VOLUME 78 fL (79-100); MONO # 0.6 x10^3/uL (0.0-1.1); MONO % 7 % (0-9); NEUT # 7.2 x10^3/uL (1.8-7.7); NEUT % 78 % (31-73); PLATELET COUNT 254 x10^3/uL (140-400); RED BLOOD COUNT 5.36 x10^6/uL (4.30-5.70); RED CELL DISTRIBUTION WIDTH 16.2 % (11.5-14.5); WHITE BLOOD COUNT 9.2 x10^3/uL (4.0-11.0)
[2021-04-06 20:56] LABS: CREATININE 1.1 mg/dL (0.7-1.3); GFR 66.4; POTASSIUM 3.8 mmol/L (3.5-5.1)
[2021-04-06 21:02] LABS: ALBUMIN 4.7 g/dL (3.4-5.0); ALBUMIN/GLOBULIN RATIO 1.4 (1.0-1.7); TOTAL BILIRUBIN 0.6 mg/dL (0.2-1.0)
[2021-04-06] MEDS ORDERED: IOHEXOL 300 MG/ML 100ML VIAL. ONE (21:28)
[2021-04-06] MEDS ORDERED: IV NORMAL SALINE 1000ML BAG 1,000 ML IV ONE (21:30)
--- NOTE | 2021-04-06 22:02 | RAD ---
Exam: CT of abdomen and pelvis with contrast INDICATION: Diarrhea TECHNIQUE: Sequential axial images through the abdomen and pelvis obtained following the administrati on of 75 mL of Isovue-370 IV contrast. Sagittal and coronal reformatted images were reconstructed fro m the axial data and reviewed. Exposure: One or more of the following in the visualized dose reduction techniques were utilized for this examination: 1. Automated exposure control 2. Adjustment of the MA and/or KV according to patient size 3. Use of iterative of reconstructive technique Comparisons: None FINDINGS: Heart size is normal. No pericardial effusion. Strandy opacities at the dependent portion lungs likel y representing atelectasis. No pleural effusion. Liver, spleen, pancreas, and adrenals are unremarkable. Gallstones noted within the gallbladder. No perinephric inflammation or hydronephrosis. No renal or ureteral calculi are identified. Bladder is decompressed not well evaluated. Prostate is not enlarged. Few scattered diverticula are noted in the descending and sigmoid colon without evidence of acute div erticulitis. Heart amount of fluid is noted in the colon. Appendix normal. Small bowel is unremarkabl e. No free intra-abdominal air or fluid. No obstruction. Abdominal aorta has a normal course and caliber. Abdominal vasculature is patent. No enlarged intra-abdominal lymph nodes are identified. No suspicious osseous lesions or acute fractures. IMPRESSION: 1. Fluid throughout the colon consistent with history of diarrhea. 2. Diverticulosis without evidence of acute diverticulitis. 3. Cholelithiasis Electronically signed by: Jennifer Mckeon MD (04/06/2021 9:59 PM) [facility]
[2021-04-06 22:31] VITALS: BP 125/69
[2021-04-06] MEDS ORDERED: DIPH1TAB PO (22:38)
--- NOTE | 2021-04-06 22:39 | PHYS DOC ---
Past Medical History Past Medical History: Diabetes-Type II, High Cholesterol, Hypertension (FRANNIE POZO NETWORK SECURITY ENGINEER) Past Surgical History: No Surgical History (FRANNIE POZO NETWORK SECURITY ENGINEER) Smoking Status: Never Smoker Alcohol Use: None Drug Use: None (SHWETHAFRANNIE EVANS APRN) General Adult EDM: Chief Complaint: DIARRHEA HPI: HPI: Patient is a 71 year old Canadian-speaking male with history of diabetes type 2, hypertension, high cholesterol, who presents to the ED today complaining of diarrhea that began yesterday. Patient denies any fever, denies any abdominal pain, denies any nausea or vomiting. Historian was patient using language line (EASTONFRANNIE Santos NETWORK SECURITY ENGINEER) Review of Systems: Review of Systems: Constitutional: Denies fever or chills. [] Eyes: Denies change in visual acuity. [] HENT: Denies nasal congestion or sore throat. [] Respiratory: Denies cough or shortness of breath. [] Cardiovascular: Denies chest pain or edema. [] GI: Reports diarrhea. Denies abdominal pain, nausea, vomiting, bloody stools : Denies dysuria. [] Musculoskeletal: Denies back pain or joint pain. [] Integument: Denies rash. [] Neurologic: Denies headache, focal weakness or sensory changes. [] Psychiatric: Denies depression or anxiety. [] (FRANNIE POZO NETWORK SECURITY ENGINEER) Heart Score: C/O Chest Pain: N/A Risk Factors: Risk Factors: DM, Current or recent (<one month) smoker, HTN, HLP, family history of CAD, obesity. Risk Scores: Score 0 - 3: 2.5% MACE over next 6 weeks - Discharge Home Score 4 - 6: 20.3% MACE over next 6 weeks - Admit for Clinical Observation Score 7 - 10: 72.7% MACE over next 6 weeks - Early Invasive Strategies (FRANNIE POZO NETWORK SECURITY ENGINEER) Current Medications: Current Medications Medications (Trade) Dose Ordered Sig/[place] Start Time Stop Time Status Last Admin Dose Admin Famotidine (Pepcid Vial) 20 mg 1X ONCE 04/06/21 20:30 04/06/21 20:31 DC 04/06/21 21:11 20 MG Iohexol (Omnipaque 300 Mg/ml) 100 ml STK-MED ONCE 04/06/21 21:28 04/06/21 21:29 DC Morphine Sulfate (Morphine Sulfate) 5 mg 1X ONCE 04/06/21 20:30 04/06/21 20:31 DC 04/06/21 21:12 5 MG Ondansetron HCl (Zofran) 4 mg 1X ONCE 04/06/21 20:30 04/06/21 20:31 DC 04/06/21 21:11 4 MG Sodium Chloride 1,000 ml @ 1,000 mls/hr 1X ONCE 04/06/21 21:30 04/06/21 22:29 DC 04/06/21 21:30 1,000 MLS/HR (FRANNIE POZO NETWORK SECURITY ENGINEER) Allergies: Allergies: Allergies Coded Allergies Type Severity Reaction Last Updated Verified No Known Drug Allergies 12/05/18 No (FRANNIE POZO NETWORK SECURITY ENGINEER) Physical Exam: PE: Constitutional: Well developed, well nourished, no acute distress, non-toxic appearance. [] HENT: Normocephalic, atraumatic, bilateral external ears normal, oropharynx m oist, no oral exudates, nose normal. [] Eyes: PERRLA, EOMI, conjunctiva normal, no discharge. [] Neck: Normal range of motion, no tenderness, supple, no stridor. [] Cardiovascular:Heart rate regular rhythm, no murmur [] Lungs & Thorax: Bilateral breath sounds clear to auscultation [] Abdomen: Bowel sounds normal, soft, no tenderness, no masses, no pulsatile masses. [] Skin: Warm, dry, no erythema, no rash. [] Back: No tenderness, no CVA tenderness. [] Extremities: No tenderness, no cyanosis, no clubbing, ROM intact, no edema. [] Neurologic: Alert and oriented X 3, normal motor function, normal sensory function, no focal deficits noted. [] Psychologic: Affect normal, judgement normal, mood normal. [] (FRANNIE POZO M NETWORK SECURITY ENGINEER) Current Patient Data: Labs: Laboratory Tests Test 04/06/21 20:30 White Blood Count 9.2 x10^3/uL (4.0-11.0) Red Blood Count 5.36 x10^6/uL (4.30-5.70) Hemoglobin 13.4 g/dL (13.0-17.5) Hematocrit 41.5 % (39.0-53.0) Mean Corpuscular Volume 78 fL (79-100) L Mean Corpuscular Hemoglobin 25 pg (25-35) Mean Corpuscular Hemoglobin Concent 32 g/dL (31-37) Red Cell Distribution Width 16.2 % (11.5-14.5) H Platelet Count 254 x10^3/uL (140-400) Neutrophils (%) (Auto) 78 % (31-73) H Lymphocytes (%) (Auto) 13 % (24-48) L Monocytes (%) (Auto) 7 % (0-9) Eosinophils (%) (Auto) 1 % (0-3) Basophils (%) (Auto) 1 % (0-3) Neutrophils # (Auto) 7.2 x10^3/uL (1.8-7.7) Lymphocytes # (Auto) 1.2 x10^3/uL (1.0-4.8) Monocytes # (Auto) 0.6 x10^3/uL (0.0-1.1) Eosinophils # (Auto) 0.1 x10^3/uL (0.0-0.7) Basophils # (Auto) 0.1 x10^3/uL (0.0-0.2) Sodium Level 140 mmol/L (136-145) Potassium Level 3.8 mmol/L (3.5-5.1) Chloride Level 106 mmol/L (98-107) Carbon Dioxide Level 23 mmol/L (21-32) Anion Gap 11 (6-14) Blood Urea Nitrogen 20 mg/dL (8-26) Creatinine 1.1 mg/dL (0.7-1.3) Estimated GFR (Cockcroft-Gault) 66.4 BUN/Creatinine Ratio 18 (6-20) Glucose Level 165 mg/dL (70-99) H Calcium Level 9.0 mg/dL (8.5-10.1) Total Bilirubin 0.6 mg/dL (0.2-1.0) Aspartate Amino Transferase (AST) 26 U/L (15-37) Alanine Aminotransferase (ALT) 35 U/L (16-63) Alkaline Phosphatase 53 U/L (46-116) Total Protein 8.0 g/dL (6.4-8.2) Albumin 4.7 g/dL (3.4-5.0) Albumin/Globulin Ratio 1.4 (1.0-1.7) Lipase 213 U/L (73-393) Laboratory Tests 04/06/21 20:30 Laboratory Tests 04/06/21 20:30 Vital Signs: Vital Signs Date Time Temp Pulse Resp B/P (MAP) Pulse Ox O2 Delivery O2 Flow Rate FiO2 04/06/21 21:12 95 04/06/21 20:11 98.0 93 20 126/70 (88) Room Air 98.0 (FRANNIE POZO NETWORK SECURITY ENGINEER) EKG: EKG: [] (FRANNIE POZO NETWORK SECURITY ENGINEER) Radiology/Procedures: Radiology/Procedures: []PROCEDURE: CT ABD PELV W/ IV CONTRST ONLY Exam: CT of abdomen and pelvis with contrast INDICATION: Diarrhea TECHNIQUE: Sequential axial images through the abdomen and pelvis obtained following the administration of 75 mL of Isovue-370 IV contrast. Sagittal and coronal reformatted images were reconstructed from the axial data and reviewed. Exposure: One or more of the following in the visualized dose reduction techniques were utilized for this examination: 1. Automated exposure control 2. Adjustment of the MA and/or KV according to patient size 3. Use of iterative of reconstructive technique Comparisons: None FINDINGS: Heart size is normal. No pericardial effusion. Strandy opacities at the dependent portion lungs likely representing atelectasis. No pleural effusion. Liver, spleen, pancreas, and adrenals are unremarkable. Gallstones noted within the gallbladder. No perinephric inflammation or hydronephrosis. No renal or ureteral calculi are identified. Bladder is decompressed not well evaluated. Prostate is not enlarged. Few scattered diverticula are noted in the descending and sigmoid colon without evidence of acute diverticulitis. Heart amount of fluid is noted in the colon. Appendix normal. Small bowel is unremarkable. No free intra-abdominal air or fluid. No obstruction. Abdominal aorta has a normal course and caliber. Abdominal vasculature is patent. No enlarged intra-abdominal lymph nodes are identified. No suspicious osseous lesions or acute fractures. IMPRESSION: 1. Fluid throughout the colon consistent with history of diarrhea. 2. Diverticulosis without evidence of acute diverticulitis. 3. Cholelithiasis Electronically signed by: Jennifer Paris MD (04/06/2021 9:59 PM) [facility] DICTATED and SIGNED BY: JENNIFER PARIS MD DATE: 04/06/21 [id number] 0 (FRANNIE POZO NETWORK SECURITY ENGINEER) Course & Med Decision Making: Course & Med Decision Making Pertinent Labs and Imaging studies reviewed. (See chart for details) This is a 71-year-old male patient presenting to the ED today with diarrhea that began yesterday. CBC with a normal WBC, normal hemoglobin hematocrit, CMP with nothing acute. Lipase is normal. CT of the abdomen and pelvic was noted for fluid-filled colon consistent with diarrheal state, also not for cholelithiasis and diverticulosis. Patient was given IV fluids in the ED, tested for COVID-19. Provided general surgery for follow-up for cholelithiasis. Provided GI for follow-up. Instructed to push fluids, maintain good hand hygiene, given prescription for Lomotil. (FRANNIE POZO NETWORK SECURITY ENGINEER) Course & Med Decision Making The chart was reviewed. I did not see the patient. The MLP evaluated and treated the patient independently. I was available for consult. (ЮЛИЯ HERBERT DO) Rico Disclaimer: Rico Disclaimer: This electronic medical record was generated, in whole or in part, using a voice recognition dictation system. (FRANNIE POZO NETWORK SECURITY ENGINEER) Departure Departure Impression: Primary Impression: Diarrhea Qualified Codes: R19.7 - Diarrhea, unspecified Additional Impressions: Person under investigation for COVID-19 Diverticulosis Cholelithiasis Qualified Codes: K80.20 - Calculus of gallbladder without cholecystitis without obstruction Disposition: HOME / SELF CARE / HOMELESS Condition: STABLE Referrals: BERNA TAPIA D.O. (PCP) follow up next week BESSY EARLY MD follow up for diarrhea LEONILA ARELLANO MD follow up for gall stones Patient Instructions: Cholelithiasis, [id number], Diarrhea Additional Instructions: You were evaluated in the emergency room for diarrhea. Your CAT scan of the abdomen and pelvic was noted for gallstones please follow up with the General surgeon provided. You also have diverticulosis which are pouches in your colon. They are not infected. Follow-up with the provided GI specialist. Please push fluids, maintain good hand hygiene. We tested you for COVID-19, quarantine yourself until results are back. Come back to the ED at any point symptoms worsen otherwise follow-up with your primary care doctor and the provided specialist Scripts Diphenoxylate Hcl/Atropine (LOMOTIL TABLET) 1 Each Tablet 1 TAB PO TID, #15 TAB Prov: FRANNIE POOZ APRN 04/06/21 FRANNIE POZO APRN April 06, 2021 22:39 ЮЛИЯ HERBERT DO April 09, 2021 18:02
--- NOTE | 2021-04-08 08:47 | NUR ---
IP: Informed pt of negative covid test. Pt verbalized understanding and repeated "no covid".
== END 2021-04-06 23:00 | disposition home or self-care (01) ==
LOC: ER 19:45
DX: K80.20 Calculus of gallbladder without cholecystitis without obstruction (principal); K57.90 Diverticulosis of intestine, part unspecified, without perforation or abscess without bleeding; R19.7 Diarrhea, unspecified; Z20.822 Contact with and (suspected) exposure to COVID-19; E11.9 Type 2 diabetes mellitus without complications; E78.00 Pure hypercholesterolemia, unspecified; I10 Essential (primary) hypertension
CPT/HCPCS: 36415; 74177; 80053; 83690; 85025; 96361; 96374; 96375; 99285; J2270; J2405; J3490; J7030; U0003; U0005

== ENCOUNTER 2021-04-21 07:14 | Day surgery (SDC) | payer OTHER ==
[~2021-04-21] VITALS: Ht 167.6 cm; Wt 92.5 kg
[~2021-04-21 07:14] MED LIST changes: +DIPH1TAB PO; +FENO200C PO; +FLUT16SP NS; +GLIP5TAB10 PO; +HYDROmorphone 2 MG/ML VIAL IVP PRN; +INSULIN LISPRO 100 UNIT/ML 3ML VIAL for OP,RR ONLY. SQ PRN; +IV RINGERS,LACTATED 1000ML 1,000 ML IV SCH; +LIPITOR80 MG PO; +METO25TA4 PO; +MORPHINE SULFATE 2 MG/ML VIAL. IVP PRN; +PROCHLORPERAZINE 10 MG/2 ML VIAL. IVP PRN; +SITA1TAB7 PO; +fentaNYL PF VIAL 100 MCG/2 ML VIAL IVP PRN
[2021-04-21] MEDS ORDERED: ROCURONIUM 50 MG/5 ML VIAL. ONE (07:53)
[2021-04-21] MEDS ORDERED: ONDANSETRON PF 4 MG/2 ML VIAL. ONE (07:53)
[2021-04-21] MEDS ORDERED: fentaNYL PF VIAL 100 MCG/2 ML VIAL ONE ×2 (07:53→10:25)
[2021-04-21] MEDS ORDERED: LIDOCAINE 2% PF 5 ML VIAL. ONE (07:53)
[2021-04-21] MEDS ORDERED: DEXAMETHASONE SOD PHOS 4 MG/ML VIAL ONE (07:53)
[2021-04-21] MEDS ORDERED: PROPOFOL 10 MG/ML (20ML) VIAL. IV ONE (07:53)
[2021-04-21 08:03] VITALS: BP 115/72
[2021-04-21] MEDS ORDERED: IOHEXOL 300 MG/ML 50 ML VIAL. ONE (08:43)
[2021-04-21] MEDS ORDERED: SURGICEL HEMOSTAT 4X8 EACH. ONE (08:43)
[2021-04-21] MEDS ORDERED: BUPIVACAINE MPF 0.5% 30 ML VIAL. ONE (08:43)
[2021-04-21] MEDS ORDERED: NEOSTIGMINE METHYLSULFATE 5 MG/5 ML SYRINGE. ONE (09:16)
[2021-04-21] MEDS ORDERED: SEVOFLURANE 31 TO 60 MINUTES. IH ONE (09:16)
[2021-04-21] MEDS ORDERED: GLYCOPYRROLATE 1 MG/5 ML VIAL. ONE (09:16)
[2021-04-21] MEDS ORDERED: ePHEDrine PF IN SALINE 50 MG/10 ML SYRINGE. IV ONE (09:20)
[2021-04-21] MEDS ORDERED: ATROPINE 1 MG/10 ML DISP.SYRINGE. ONE (09:26)
--- NOTE | 2021-04-21 09:59 | PDOC4 ---
Operative Note Operative Note Operative Note: Preoperative Diagnosis: Symptomatic cholelithiasis Postoperative Diagnosis: Same Procedure: Laparoscopic cholecystectomy with intraoperative cholangiogram Surgeons: Jered Numerical Control Machine Tool Operator: Venkat ORONA Anesthesia: Gen. Estimated Blood Loss: 10 mL Specimen: Gallbladder to pathology Drains: None Complications: None Indications: The patient is a 71-year-old male who is referred with suspected symptomatic cholelithiasis. Surgical treatment was offered by means of a laparoscopic cholecystectomy. The risks of surgery were discussed which include bleeding, infection, bile duct injury, bile leak, pain, the potential for additional surgeries or procedures. The patient understands and would like to proceed. Description: The patient was taken to the operating room and laid supine on the operating table. General anesthesia was performed. The abdomen was prepped with ChloraPrep and draped in a standard surgical fashion. A small infraumbilical incision was made with a scalpel. The Veress needle was then inserted and a pneumoperitoneum was then created. A 5 mm trocar was then inserted and the laparoscope was introduced. In the upper midabdomen a 5 mm trocar was inserted and in the right upper quadrant two 2.3 mm mini lap graspers were inserted. The gallbladder was retracted cephalad. The cystic duct was dissected free from surrounding tissues. One clip was placed on the duct near the gallbladder junction. An opening was made in the duct and a cholangiocatheter placed within and secured with a clip. Using contrast dye and fluoroscopy an intraoperative cholangiogram was performed that appeared unremarkable. The clip and catheter were then withdrawn. Three clips were placed on the cystic duct and it was divided. The cystic artery was then identified, dissected free, doubly clipped and divided as well. The gallbladder was then mobilized away from the liver with cautery. The umbilical 5 millimeter trocar was exchanged for an 11 millimeter trocar. The gallbladder was then placed in an endoscopic bag and extracted at the umbilical trocar site. The fascia there was closed with an 0 Vicryl suture and infiltrated with 0.5% marcaine. All blood and irrigation fluid was suctioned and hemostasis was good. The remaining ports were removed and the pneumoperitoneum was relieved. The skin incisions were closed using 4-0 Monocryl suture. Steri-Strips and dressings were then applied. The patient tolerated the procedure well and was sent to the recovery room in stable condition. At the end of the case all counts were correct. BESSY ALFARO MD Apr 21, 2021 09:59
--- NOTE | 2021-04-21 10:01 | DISCH ---
DISCHARGE INSTRUCTIONS Condition on Discharge Condition on Discharge: Stable Activity After Discharge Activity Instructions for Disc: Other, see below (no lifting over 20 lbs X 2 weeks) Diet after Discharge Diet after Discharge: Regular Wound Incision Care Wound/Incision Care: Other, see below (may remove bandaids tomorrow and shower) Follow-Up Follow up with: Dr Alfaro in 2 weeks in office, call for appointment [phone] BESSY ALFARO MD Apr 21, 2021 10:01
--- NOTE | 2021-04-21 10:08 | RAD ---
INDICATION: Reason: CHOLANGIOGRAMS IN OR WITH C-ARM.FL TIME=.22 MIN, 3 IMAGES SENT. / Spl. Instructio ns: / History: . Fluoro for procedure. IMPRESSION: Fluoroscopy was utilized by the clinical service to assist with their procedure. There are 3 saved images/series. The limited saved images show spot images of the upper abdomen with contrast injection of the bile du cts. Contrast is seen within the common bile duct with flow identified into the duodenum without evid ence of a obstructive common bile duct stone. 0.22 minutes of fluoroscopy time was used. This dictation is for the usage of fluoroscopy only. Please see the clinical service's procedure note for detail on the procedure. Electronically signed by: Chinedu Sharma MD (04/21/2021 10:05 AM) [id number]
[2021-04-21] MEDS ORDERED: HYDROcodone/APAP 5/325MG 1 TAB TABLET PO ONE (10:15)
[2021-04-21] MEDS ORDERED: PROCHLORPERAZINE 10 MG/2 ML VIAL. ONE (10:25)
[2021-04-21 10:43] VITALS: BP 114/71
--- NOTE | 2021-04-22 18:06 | PATHOLOGY ---
[facility] Accession Number: [id number] . 01 Material submitted: . gallbladder - GALLBLADDER . 01 Clinical history: . GALL STONES SYMPTOMATIC CHOLELITHIASIS LAP BETH . 02 Diagnosis: Gallbladder, laparoscopic cholecystectomy: - Cholelithiasis. - Chronic cholecystitis. LBQ 04/22/2021 1146 Local . 02 Comment: There is no evidence of malignancy. (JPM/db; 04/22/2021) . 02 Electronically signed: . Adryan Laws MD, Pathologist NPI- [id number] . 01 Gross description: . Fixative: Formalin Labeled: Gallbladder Specimen received: Intact cholecystectomy specimen Dimensions: 7.1 x 3.3 x 1.6 cm Serosa: [place]mentau-mercer and smooth Lymph node: None identified Mucosa: Red-green and velvety Average wall thickness: 0.1 cm Calculi: Yes, multiple jagged and roughened black calculi measuring in aggregate 2.6 x 2.6 x 0.8 cm and ranging from less than 0.1-0.9 cm in greatest dimension Abnormalities: None identified A1- Cleaning Handyman body, fundus, and the cystic duct margin. ([facility] [place]; 04/21/2021) SY/C 04/21/2021 1804 Local . 02 Pathologist provided ICD-10: K80.10 . 02 CPT . 795732 Specimen Comment: A courtesy copy of this report has been sent to [phone], [phone] Specimen Comment: [id number] Specimen Comment: Report sent to / DR TAPIA Performed at: [address], [place], [place] [id number] MD Esteban Pantoja MD Phone: [phone] Performed at: 02 [facility] [address], [place] [id number] MD Adryan Laws MD Phone: [phone]
== END 2021-04-21 11:12 | disposition home or self-care (01) ==
LOC: SURG 07:14
PROVIDERS: ATTEND Surgery
DX: K80.10 Calculus of gallbladder with chronic cholecystitis without obstruction (principal); I48.91 Unspecified atrial fibrillation; E78.00 Pure hypercholesterolemia, unspecified; I10 Essential (primary) hypertension; E11.9 Type 2 diabetes mellitus without complications; E78.5 Hyperlipidemia, unspecified; M19.90 Unspecified osteoarthritis, unspecified site; Z98.890 Other specified postprocedural states; Z79.899 Other long term (current) drug therapy; Z79.82 Long term (current) use of aspirin; Z98.49 Cataract extraction status, unspecified eye
CPT/HCPCS: 47563; 74300; 82962; A4213; A4314; A4364; A4930; A6219; C1887; J0461; J0690; J0780; J1100; J2405; J2704; J2710; J3010; J3490; Q9967; 88304; A4452; A4657

== ENCOUNTER 2022-02-21 12:02 | Inpatient (IN) | payer OTHER ==
[~2022-02-21] VITALS: Ht 175.3 cm; Wt 91.9 kg
[~2022-02-21 12:02] MED LIST changes: -FENO200C PO; +FENO200C27 PO; -HYDROmorphone 2 MG/ML VIAL IVP PRN; -INSULIN LISPRO 100 UNIT/ML 3ML VIAL for OP,RR ONLY. SQ PRN; -IV RINGERS,LACTATED 1000ML 1,000 ML IV SCH; -LISI-517 PO; +LISI5TAB15 PO; -MORPHINE SULFATE 2 MG/ML VIAL. IVP PRN; -PROCHLORPERAZINE 10 MG/2 ML VIAL. IVP PRN; -fentaNYL PF VIAL 100 MCG/2 ML VIAL IVP PRN
[2022-02-21 14:41] LABS: BASO % 0 % (0-3); CALCIUM 8.7 mg/dL (8.5-10.1); CREATININE 1.2 mg/dL (0.7-1.3); EOS % 0 % (0-3); HEMATOCRIT 38.8 % (39.0-53.0); HEMOGLOBIN 12.4 g/dL (13.0-17.5); LYMPH # 0.9 x10^3/uL (1.0-4.8); LYMPH % 6 % (24-48); MEAN CORPUSCULAR HEMOGLOBIN 25 pg (25-35); MEAN CORPUSCULAR HGB CONC 32 g/dL (31-37); MEAN CORPUSCULAR VOLUME 77 fL (79-100); MONO # 0.8 x10^3/uL (0.0-1.1); MONO % 6 % (0-9); NEUT # 12.4 x10^3/uL (1.8-7.7); NEUT % 88 % (31-73); PLATELET COUNT 170 x10^3/uL (140-400); POTASSIUM 3.7 mmol/L (3.5-5.1); RED BLOOD COUNT 5.04 x10^6/uL (4.30-5.70); RED CELL DISTRIBUTION WIDTH 15.2 % (11.5-14.5); WHITE BLOOD COUNT 14.1 x10^3/uL (4.0-11.0)
[2022-02-21] MEDS ORDERED: CONTRAST GIVEN. MC PRN (14:45)
[2022-02-21] MEDS ORDERED: IOHEXOL 300 MG/ML 100ML VIAL. IV ONE (14:45)
[2022-02-21 14:53] LABS: ALBUMIN 3.9 g/dL (3.4-5.0); ALBUMIN/GLOBULIN RATIO 1.2 (1.0-1.7); TOTAL BILIRUBIN 0.9 mg/dL (0.2-1.0); TOTAL PROTEIN 7.2 g/dL (6.4-8.2)
[2022-02-21 15:00] LABS: BACTERIA,URINE MANY /HPF (0-FEW); WBC,URINE TNTC /HPF (0-4)
--- NOTE | 2022-02-21 15:06 | RAD ---
PROCEDURE: XR CHEST 1V.02/21/2022 3:02 PM REASON FOR STUDY: Reason: FEVER, FATIGUE / Spl. Instructions: / History: . COMPARISON: Study of 09/25/2018. FINDINGS: Minimal scarring or atelectasis is suggested at the left lung base. No new infiltrate or ef fusion is seen. The heart may be mildly enlarged, but appears unchanged. Pulmonary vascularity is not congested. IMPRESSION: No acute findings. Electronically signed by: Stevie Castillo Jr., MD (02/21/2022 3:03 PM) [id number]
--- NOTE | 2022-02-21 15:24 | RAD ---
CT OF THE ABDOMEN AND PELVIS WITH IV CONTRAST. History: Reason: pelvic pain, fever / Spl. Instructions: OMNI 300 INJ. 75 MLS / History: Comparison:April 06, 2021. Procedure: Contiguous axial images of the abdomen and pelvis were performed after the administration of 75 cc o f Omni 300 IV contrast. Oral contrast: No. Findings: Portable study. The appendix appears normal. The left colon is collapsed limiting its evaluation. Liver: Unremarkable Spleen: Unremarkable Pancreas: Unremarkable Adrenal Glands: Unremarkable Kidneys: Unremarkable There is no mass or lymphadenopathy. There is no free air. There is no free fluid. The urinary bladder has mild wall thickening likely hypertrophy. The prostate is mildly enlarged. Impression: No acute findings. End Impression PQRS Compliance Statement: One or more of the following individualized dose reduction techniques were utilized for this examinat ion: 1. Automated exposure control 2. Adjustment of the mA and/or kV according to patient size 3. Use of iterative reconstruction technique Electronically signed by: Parag Salazar III, MD (02/21/2022 3:21 PM) [facility]
--- NOTE | 2022-02-21 15:39 | PHYS DOC ---
Past Medical History Past Medical History: Diabetes-Type II, High Cholesterol, Hypertension Past Surgical History: No Surgical History Smoking Status: Never Smoker Alcohol Use: None Drug Use: None General Adult EDM: Chief Complaint: FEVER HPI: HPI: Patient is a 71 year old male who is a [id number] diabetic comes in with pelvic pain fever. Patient denies any dysuria denies any nausea or vomiting denies any back pain. Patient states that he has not had symptoms like this in the past. Patient states the symptoms started yesterday. Review of Systems: Review of Systems: Constitutional: Fever chills and body aches Eyes: Denies change in visual acuity. HENT: Denies nasal congestion or sore throat. Respiratory: Denies cough or shortness of breath. Cardiovascular: Denies chest pain or edema. GI: Denies abdominal pain, nausea, vomiting, bloody stools or diarrhea. [ : Pelvic pain no urinary frequency denies dysuria. Musculoskeletal: Denies back pain or joint pain. Integument: Denies rash. Neurologic: Denies headache, focal weakness or sensory changes. Endocrine: Denies polyuria or polydipsia. Lymphatic: Denies swollen glands. Psychiatric: Denies depression or anxiety. Heart Score: C/O Chest Pain: No Risk Factors: Risk Factors: DM, Current or recent (<one month) smoker, HTN, HLP, family history of CAD, obesity. Risk Scores: Score 0 - 3: 2.5% MACE over next 6 weeks - Discharge Home Score 4 - 6: 20.3% MACE over next 6 weeks - Admit for Clinical Observation Score 7 - 10: 72.7% MACE over next 6 weeks - Early Invasive Strategies Current Medications: Current Medications Medications (Trade) Dose Ordered Sig/[place] Start Time Stop Time Status Last Admin Dose Admin Info (CONTRAST GIVEN -- Rx MONITORING) 1 each PRN DAILY PRN 02/21/22 14:45 02/23/22 14:44 Iohexol (Omnipaque 300 Mg/ml) 75 ml 1X ONCE 02/21/22 14:45 02/21/22 14:46 DC 02/21/22 14:58 75 ML Allergies: Allergies: Laboratory Tests Test 02/21/22 14:07 02/21/22 14:14 02/21/22 14:15 White Blood Count 14.1 x10^3/uL Red Blood Count 5.04 x10^6/uL Hemoglobin 12.4 g/dL Hematocrit 38.8 % Mean Corpuscular Volume 77 fL Mean Corpuscular Hemoglobin 25 pg Mean Corpuscular Hemoglobin Concent 32 g/dL Red Cell Distribution Width 15.2 % Platelet Count 170 x10^3/uL Neutrophils (%) (Auto) 88 % Lymphocytes (%) (Auto) 6 % Monocytes (%) (Auto) 6 % Eosinophils (%) (Auto) 0 % Basophils (%) (Auto) 0 % Neutrophils # (Auto) 12.4 x10^3/uL Lymphocytes # (Auto) 0.9 x10^3/uL Monocytes # (Auto) 0.8 x10^3/uL Eosinophils # (Auto) 0.0 x10^3/uL Basophils # (Auto) 0.0 x10^3/uL Sodium Level 137 mmol/L Potassium Level 3.7 mmol/L Chloride Level 100 mmol/L Carbon Dioxide Level 25 mmol/L Anion Gap 12 Blood Urea Nitrogen 14 mg/dL Creatinine 1.2 mg/dL Estimated GFR (Cockcroft-Gault) 60.0 BUN/Creatinine Ratio 12 Glucose Level 201 mg/dL Calcium Level 8.7 mg/dL Total Bilirubin 0.9 mg/dL Aspartate Amino Transf (AST/SGOT) 18 U/L Alanine Aminotransferase (ALT/SGPT) 23 U/L Alkaline Phosphatase 45 U/L Total Protein 7.2 g/dL Albumin 3.9 g/dL Albumin/Globulin Ratio 1.2 Lipase 73 U/L Urine Collection Type Unknown Urine Color (Auto) Light orange Urine Turbidity Hazy Urine pH (Auto) 6.0 Urine Specific [place] 1.023 Urine Protein (Auto) 70 mg/dL Urine Glucose (Auto)(UA) >=1000 mg/dL Urine Ketones (Auto) Trace mg/dL Urine Blood (Auto) Moderate Urine Nitrite (Auto) Positive Urine Bilirubin (Auto) Negative Urine Urobilinogen (Auto) Normal mg/dL Urine Leukocyte Esterase (Auto) Large Urine RBC 6-10 /HPF Urine WBC Tntc /HPF Urine Squamous Epithelial Cells Few /LPF Urine Bacteria Many /HPF SARS-CoV-2 Antigen (Rapid) Negative Current Medications Medications (Trade) Dose Ordered Sig/[place] Route PRN Reason Start Time Stop Time Status Last Admin Dose Admin Iohexol (Omnipaque 300 Mg/ml) 75 ml 1X ONCE IV 02/21/22 14:45 02/21/22 14:46 DC 02/21/22 14:58 Info (CONTRAST GIVEN -- Rx MONITORING) 1 each PRN DAILY PRN MC SEE COMMENTS 02/21/22 14:45 02/23/22 14:44 Allergies Coded Allergies Type Severity Reaction Last Updated Verified No Known Drug Allergies 12/05/18 No Physical Exam: PE: Constitutional: Well developed, well nourished, no acute distress, non-toxic appearance. HENT: Normocephalic, atraumatic, bilateral external ears normal, oropharynx moist, no oral exudates, nose normal. Eyes: PERRLA, EOMI, conjunctiva normal, no discharge. Neck: Normal range of motion, no tenderness, supple, no stridor. Cardiovascular:Heart rate regular rhythm, no murmur Lungs & Thorax: Bilateral breath sounds clear to auscultation Abdomen: Bowel sounds normal, soft, no tenderness, no masses, no pulsatile masses. No flank tenderness Skin: Warm, dry, no erythema, no rash. Back: No tenderness, no CVA tenderness. Extremities: No tenderness, no cyanosis, no clubbing, ROM intact, no edema. Neurologic: Alert and oriented X 3, normal motor function, normal sensory function, no focal deficits noted. Psychologic: Affect normal, judgement normal, mood normal. Current Patient Data: Labs: Laboratory Tests Test 02/21/22 14:07 02/21/22 14:14 02/21/22 14:15 White Blood Count 14.1 x10^3/uL (4.0-11.0) H Red Blood Count 5.04 x10^6/uL (4.30-5.70) Hemoglobin 12.4 g/dL (13.0-17.5) L Hematocrit 38.8 % (39.0-53.0) L Mean Corpuscular Volume 77 fL (79-100) L Mean Corpuscular Hemoglobin 25 pg (25-35) Mean Corpuscular Hemoglobin Concent 32 g/dL (31-37) Red Cell Distribution Width 15.2 % (11.5-14.5) H Platelet Count 170 x10^3/uL (140-400) Neutrophils (%) (Auto) 88 % (31-73) H Lymphocytes (%) (Auto) 6 % (24-48) L Monocytes (%) (Auto) 6 % (0-9) Eosinophils (%) (Auto) 0 % (0-3) Basophils (%) (Auto) 0 % (0-3) Neutrophils # (Auto) 12.4 x10^3/uL (1.8-7.7) H Lymphocytes # (Auto) 0.9 x10^3/uL (1.0-4.8) L Monocytes # (Auto) 0.8 x10^3/uL (0.0-1.1) Eosinophils # (Auto) 0.0 x10^3/uL (0.0-0.7) Basophils # (Auto) 0.0 x10^3/uL (0.0-0.2) Sodium Level 137 mmol/L (136-145) Potassium Level 3.7 mmol/L (3.5-5.1) Chloride Level 100 mmol/L (98-107) Carbon Dioxide Level 25 mmol/L (21-32) Anion Gap 12 (6-14) Blood Urea Nitrogen 14 mg/dL (8-26) Creatinine 1.2 mg/dL (0.7-1.3) Estimated GFR (Cockcroft-Gault) 60.0 BUN/Creatinine Ratio 12 (6-20) Glucose Level 201 mg/dL (70-99) H Calcium Level 8.7 mg/dL (8.5-10.1) Total Bilirubin 0.9 mg/dL (0.2-1.0) Aspartate Amino Transferase (AST) 18 U/L (15-37) Alanine Aminotransferase (ALT) 23 U/L (16-63) Alkaline Phosphatase 45 U/L (46-116) L Total Protein 7.2 g/dL (6.4-8.2) Albumin 3.9 g/dL (3.4-5.0) Albumin/Globulin Ratio 1.2 (1.0-1.7) Lipase 73 U/L (73-393) Urine Collection Type Unknown Urine Color (Auto) Light orange Urine Turbidity Hazy Urine pH (Auto) 6.0 (<5.0-8.0) Urine Specific [place] 1.023 (1.000-1.030) Urine Protein (Auto) 70 mg/dL (Negative) Urine Glucose (Auto)(UA) >=1000 mg/dL (Negative) Urine Ketones (Auto) Trace mg/dL (Negative) Urine Blood (Auto) Moderate (Negative) Urine Nitrite (Auto) Positive (Negative) Urine Bilirubin (Auto) Negative (Negative) Urine Urobilinogen (Auto) Normal mg/dL (Normal) Urine Leukocyte Esterase (Auto) Large (Negative) Urine RBC 6-10 /HPF (0-2) Urine WBC Tntc /HPF (0-4) Urine Squamous Epithelial Cells Few /LPF Urine Bacteria Many /HPF (0-FEW) SARS-CoV-2 Antigen (Rapid) Negative (NEGATIVE) Laboratory Tests 02/21/22 14:07 Laboratory Tests 02/21/22 14:07 Vital Signs: Vital Signs Date Time Temp Pulse Resp B/P (MAP) Pulse Ox O2 Delivery O2 Flow Rate FiO2 02/21/22 13:33 98.9 102 22 132/59 (83) 99 Room Air 98.9 EKG: EKG: [] Radiology/Procedures: Radiology/Procedures: Findings: The cardiomediastinal silhouette is normal. The pulmonary vasculature is normal. The lungs and pleural margins are clear. Impression: No evidence of an acute cardiopulmonary process. Course & Med Decision Making: Course & Med Decision Making Pertinent Labs and Imaging studies reviewed. (See chart for details) [] Patient is hemodynamically stable and states that he is ready to go home. Declines observation. Patient was given first dose of antibiotics return precautions were discussed Rico Disclaimer: Rico Disclaimer: This electronic medical record was generated, in whole or in part, using a voice recognition dictation system. Departure Departure Referrals: BERNA TAPIA D.O. (PCP) JOSE JUAN ISLAS DO Feb 21, 2022 15:39
[2022-02-21] MEDS ORDERED: LEVO750T5 PO (15:49)
[2022-02-21] MEDS ORDERED: ADENOSINE 6 MG/2 ML VIAL. IV ONE ×4 (16:36→17:00)
[2022-02-21] MEDS ORDERED: PIPERACILLIN/TAZOBACTAM 4.5 GM in IV DEXTROSE 5% 100ML 100 ML IV ONE (17:00)
[2022-02-21] MEDS ORDERED: PIPERACILLIN/TAZOBACTAM 4.5 GM in IV NORMAL SALINE 100ML 100 ML IV ONE (17:00)
--- NOTE | 2022-02-21 17:15 | PHYS DOC ---
Date and Time of Assessment Date: Feb 21, 2022 Time: 16:30 Vital Signs Vital Signs: Vital Signs Date Time Temp Pulse Resp B/P (MAP) Pulse Ox O2 Delivery O2 Flow Rate FiO2 02/21/22 17:12 165 123/76 02/21/22 16:45 24 100 Nasal Cannula 2.0 02/21/22 13:33 98.9 98.9 Temperature Source: Oral Respirations Respiratory Pattern: Irregular Cardiovascular Pulse Rhythm: Irregular Capillary Refil Capillary Refill: Rt Hand > 3 seconds Peripheral Pulse Pulse Location: Monitor Pulse Strength: Normal (2+) Pulse Assessment Method: Monitor Integumentary Skin Moisture: Dry Skin Turgor: Normal Skin Color: warm JOSE JUAN ISLAS DO Feb 21, 2022 17:15
[2022-02-21] MEDS ORDERED: HEPARIN 25,000UTS/250ML PREMIX 250 ML IV PRN (17:30)
[2022-02-21 18:28] LABS: HEMATOCRIT 36.6 % (39.0-53.0); HEMOGLOBIN 11.8 g/dL (13.0-17.5); RED BLOOD COUNT 4.8 x10^6/uL (4.30-5.70); RED CELL DISTRIBUTION WIDTH 15.3 % (11.5-14.5); WHITE BLOOD COUNT 16.3 x10^3/uL (4.0-11.0)
[2022-02-21 18:41] LABS: PARTIAL THROMBOPLASTIN TIME 35 SEC (24-38); PROTHROMBIN TIME PATIENT 17.7 SEC (11.7-14.0)
[2022-02-21] MEDS: HEPARIN for IV BOLUS 10,000 UNIT/10 ML VIAL. IV PRN (18:41)
[2022-02-21 18:43] LABS: UNFRACTIONATED HEPARIN TESTING < 0.10 IU/mL (0.30-0.70)
[2022-02-21] MEDS ORDERED: METOPROLOL IV PUSH 5 MG/5 ML VIAL. IVP ONE (19:15)
[2022-02-21 19:48] VITALS: BP 136/62
[2022-02-21 19:50] VITALS: BP 136/62
[2022-02-21 20:47] VITALS: BP 110/58
[2022-02-21 22:02] VITALS: BP 104/53
[2022-02-21 23:05] VITALS: BP 105/59
[2022-02-21 23:07] VITALS: BP 102/58
[2022-02-22] VITALS (12 sets, daily range): BP systolic 87–129; BP diastolic 34–72
--- NOTE | 2022-02-22 00:30 | NUR ---
Admit to floor from ER via [facility] on 02/21/22 at 1940. 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
--- NOTE | 2022-02-22 02:13 | NUR ---
BP 87/34 with HR 97. Placed Cardizem driip on hold.
[2022-02-22 02:20] LABS: BASO # 0.1 x10^3/uL (0.0-0.2); BASO % 1 % (0-3); EOS % 0 % (0-3); HEMATOCRIT 36.1 % (39.0-53.0); HEMOGLOBIN 11.1 g/dL (13.0-17.5); LYMPH # 1.2 x10^3/uL (1.0-4.8); LYMPH % 8 % (24-48); MEAN CORPUSCULAR HEMOGLOBIN 24 pg (25-35); MEAN CORPUSCULAR HGB CONC 31 g/dL (31-37); MEAN CORPUSCULAR VOLUME 77 fL (79-100); MONO # 0.8 x10^3/uL (0.0-1.1); MONO % 5 % (0-9); NEUT % 87 % (31-73); PLATELET COUNT 151 x10^3/uL (140-400); RED BLOOD COUNT 4.73 x10^6/uL (4.30-5.70); RED CELL DISTRIBUTION WIDTH 15.3 % (11.5-14.5); WHITE BLOOD COUNT 16.1 x10^3/uL (4.0-11.0)
[2022-02-22] MEDS: HEPARIN for IV BOLUS 10,000 UNIT/10 ML VIAL. IV PRN ×2 (03:18→11:26)
[2022-02-22] MEDS ORDERED: ACETAMINOPHEN 325 MG TABLET. PO PRN (03:30)
[2022-02-22 05:12] LABS: CALCIUM 7.8 mg/dL (8.5-10.1); CREATININE 1.2 mg/dL (0.7-1.3); POTASSIUM 3.1 mmol/L (3.5-5.1); TOTAL BILIRUBIN 0.5 mg/dL (0.2-1.0); TOTAL PROTEIN 6.1 g/dL (6.4-8.2)
[2022-02-22] MEDS ORDERED: PIP/TAZO PER PHARMACY MC PRN (08:30)
[2022-02-22] MEDS ORDERED: DIGOXIN IV 500 MCG/2 ML AMPUL. IV ONE (08:45)
--- NOTE | 2022-02-22 08:45 | PDOC1 ---
History and Physical Date of Admission Date of Admission DATE: 02/22/22 TIME: 08:40 Source Source: Chart review, Patient History of Present Illness History of Present Illness MR. Barger, is a 71 year old male admit overnight from the ER, sepsis plan started for treatmetn. He had a day (under 24 hours) of worsneing lower pelvic pain and fever. Patient denies any trouble going to the bathroom, no blood in urine, urine stream strenght has not changed. THe pain from yesterday is improrved and not reproducible. He denies any nausea or vomiting denies any back pain. Past Medical History Cardiovascular: HTN, Hyperlipidemia Pulmonary: No pertinent hx CENTRAL NERVOUS SYSTEM: Other GI: No pertinent hx Heme/Onc: No pertinent hx Hepatobiliary: No pertinent hx Psych: No pertinent hx Musculoskeletal: Osteoarthritis Rheumatologic: No pertinent hx Infectious disease: No pertinent hx Renal/: No pertinent hx Endocrine: Diabetes Past Surgical History Past Surgical History: Cataract Removal Family History Family History: No Significant Social History Smoke: No ALCOHOL: none Drugs: None Current Problem List Problem List Problems Medical Problems: (1) Atrial fibrillation, new onset Status: Acute (2) Sepsis Status: Acute (3) UTI (urinary tract infection) Status: Acute Current Medications Current Medications Current Medications Iohexol (Omnipaque 300 Mg/ml) 75 ml 1X ONCE IV Last administered on 02/21/22at 14:58; Start 02/21/22 at 14:45; Stop 02/21/22 at 14:46; Status DC Info (CONTRAST GIVEN -- Rx MONITORING) 1 each PRN DAILY PRN MC SEE COMMENTS; Start 02/21/22 at 14:45; Stop 02/23/22 at 14:44 Levofloxacin (Levaquin) 500 mg 1X ONCE PO ; Start 02/21/22 at 15:45; Stop 02/21/22 at 16:53; Status DC Adenosine (Adenocard) 6 mg STK-MED ONCE IV ; Start 02/21/22 at 16:36; Stop 02/21/22 at 16:36; Status DC Adenosine (Adenocard) 6 mg STK-MED ONCE IV ; Start 02/21/22 at 16:39; Stop 02/21/22 at 16:39; Status DC Adenosine (Adenocard) 6 mg 1X ONCE IV Last administered on 02/21/22at 17:01; Start 02/21/22 at 17:00; Stop 02/21/22 at 17:01; Status DC Adenosine (Adenocard) 12 mg 1X ONCE IV Last administered on 02/21/22at 17:02; Start 02/21/22 at 17:00; Stop 02/21/22 at 17:01; Status DC Piperacillin Sod/ Tazobactam Sod 4.5 gm/Sodium Chloride 100 ml @ 200 mls/hr 1X ONCE IV ; Start 02/21/22 at 17:00; Stop 02/21/22 at 16:55; Status DC Piperacillin Sod/ Tazobactam Sod 4.5 gm/Dextrose 100 ml @ 200 mls/hr 1X ONCE IV Last administered on 02/21/22at 17:14; Start 02/21/22 at 17:00; Stop 02/21/22 at 17:29; Status DC Diltiazem HCl (Cardizem Iv Push) 10 mg 1X ONCE IVP Last administered on 02/21/22at 17:12; Start 02/21/22 at 17:15; Stop 02/21/22 at 17:16; Status DC Diltiazem HCl (Cardizem Iv Push) 25 mg STK-MED ONCE .ROUTE ; Start 02/21/22 at 17:07; Stop 02/21/22 at 17:08; Status DC Heparin Sodium/ Dextrose 250 ml @ 10 mls/hr CONT PRN IV PER PROTOCOL Last administered on 02/21/22at 18:43; Start 02/21/22 at 17:30 Heparin Sodium (Porcine) (Heparin Sodium) 2,250 unit PRN Q6HRS PRN IV FOR UFH LEVEL LESS THAN 0.2 Last administered on 02/22/22at 03:18; Start 02/21/22 at 17:30 Diltiazem HCl 125 mg/Sodium Chloride 125 ml @ 5 mls/hr 1X ONCE IV Last administered on 02/21/22at 18:21; Start 02/21/22 at 17:30; Stop 02/22/22 at 18:29 Metoprolol Tartrate (Lopressor Vial) 5 mg 1X ONCE IVP ; Start 02/21/22 at 19:15; Stop 02/21/22 at 19:16; Status DC Acetaminophen (Tylenol) 650 mg PRN Q6HRS PRN PO MILD PAIN / TEMP > 100.3'F Last administered on 02/22/22at 03:37; Start 02/22/22 at 03:30 Digoxin (Lanoxin) 500 mcg 1X ONCE IV Last administered on 02/22/22at 08:33; Start 02/22/22 at 08:45; Stop 02/22/22 at 08:46 Piperacillin Sod/ Tazobactam Sod (Zosyn Per Pharmacy) 1 each PRN DAILY PRN MC SEE COMMENTS; Start 02/22/22 at 08:30 Potassium Chloride (Klor-Con) 40 meq 1X ONCE PO ; Start 02/22/22 at 08:45; Stop 02/22/22 at 08:46; Status UNV Potassium Chloride (Klor-Con) 20 meq DAILYWBKFT PO ; Start 02/23/22 at 08:00; Status UNV Aspirin (Ecotrin) 81 mg DAILYWBKFT PO ; Start 02/23/22 at 08:00; Status UNV Fluticasone Propionate (Flonase) 2 spray DAILY NS ; Start 02/22/22 at 09:00; Status UNV Glipizide (Glucotrol) 5 mg DAILY PO ; Start 02/22/22 at 09:00; Status UNV Metoprolol Tartrate (Lopressor) 50 mg BID PO ; Start 02/22/22 at 09:00; Status UNV Non-Formulary Medication (Atorvastatin Calcium (Lipitor)) 80 mg HS PO ; Start 02/22/22 at 21:00; Status UNV Non-Formulary Medication (Sitagliptin Phos/Metformin Hcl (Janumet 50-500 Mg Tablet)) 1 each DAILY PO ; Start 02/22/22 at 09:00; Status UNV Piperacillin Sod/ Tazobactam Sod 3.375 gm/Sodium Chloride 50 ml @ 100 mls/hr Q6HRS IV ; Start 02/22/22 at 10:00 Active Scripts Active Levofloxacin 750 Mg Tablet 1 Tab PO DAILY Aspirin Ec (Aspirin) 81 Mg Tablet.dr 81 Mg PO DAILYWBKFT 90 Days Reported Metoprolol Tartrate 25 Mg Tablet 25 Mg PO BID Lipitor (Atorvastatin Calcium) 80 Mg Tablet 80 Mg PO HS Janumet 50-500 Mg Tablet (Sitagliptin Phos/Metformin Hcl) 1 Each Tablet 1 Each PO DAILY Fluticasone Propionate Nasal [place] (Fluticasone Propionate) 16 Gm [place].susp 2 [place] NS DAILY Fenofibrate (Fenofibrate,Micronized) 200 Mg Capsule 200 Mg PO DAILY Glipizide 5 Mg Tablet 1 Tab PO DAILY Allergies Allergies: Coded Allergies: No Known Drug Allergies (Unverified , 12/05/18) ROS Review of System fever 3am General: YES: Chills, Fatigue, Malaise; No: Night Sweats, Appetite, Other PSYCHOLOGICAL ROS: No: Anxiety, Behavioral Disorder, Concentration difficultie, Decreased libido, Depression, Disorientation, Hallucinations, Hostility, Irritablity, Memory difficulties, Mood Swings, Obsessive thoughts, Physical abuse, Other Eyes: No Blurry vision, No Decreased vision, No Double vision, No Dry eyes, No Excessive tearing, No Eye Pain, No Itchy Eyes, No Loss of vision, No Photophobia, No Scotomata, No Uses contacts, No Uses glasses, No Other HEENT: No: Heacaches, Visual Changes, Hearing change, Nasal congestion, Nasal discharge, Oral lesions, Sinus pain, Sore Throat, Epistaxis, Sneezing, Snoring, Tinnitus, Vertigo, Vocal changes, Other Respiratory: No: Cough, Hemoptysis, Orthopnea, Pleuritic Pain, Shortness of breath, SOB with excertion, Sputum Changes, Stridor, Tachypnea, Wheezing, Other Cardiovascular: No Chest Pain, No Palpitations, No Orthopnea, No Paroxysmal Noc. Dyspnea, No Edema, No Lt Headedness, No Other Genitourinary: No Dysuria, No Frequency, No Incontinence, No Hematuria, No Retention, No Discharge, No Urgency, No Pain, No Flank Pain, No Other, No , No , No , No , No , No , No Musculoskeletal: Yes Joint Stiffness; No Gait Disturbance, No Joint Pain, No Joint Swelling, No Muscle Pain, No Muscular Weakness, No Pain In:, No Swelling In:, No Other Neurological: No Behavorial Changes, No Bowel/Bladder ControlChng, No Confusion, No Dizziness, No Gait Disturbance, No Headaches, No Impaired Coord/balance, No Memory Loss, No Numbness/Tingling, No Seizures, No Speech Problems, No Tremors, No Visual Changes, No Weakness, No Other Skin: Yes Dry Skin; No Eczema, No Hair Changes, No Lumps, No Mole Changes, No Mottling, No Nail Changes, No Pruritus, No Rash, No Skin Lesion Changes, No Other, No Acne Physical Exam General: Alert, Oriented X3, Cooperative, No acute distress HEENT: PERRLA, Mucous membr. moist/pink, Other (silver capped lower teeth) Lungs: Clear to auscultation Heart: S1S2, RRR (back in sinus now), no gallops, no murmurs Abdomen: Normal bowel sounds, Soft Rectal Exam: not examined Extremities: No clubbing, No cyanosis, No edema, Normal pulses Skin: No breakdown Neuro: Normal speech, Sensation intact Psych/Mental Status: Mental status NL, Mood NL Vitals Vitals Vital Signs Date Time Temp Pulse Resp B/P (MAP) Pulse Ox O2 Delivery O2 Flow Rate FiO2 02/22/22 08:33 100 99/57 02/22/22 04:23 99.5 22 95 Room Air 99.5 02/21/22 18:45 2.0 Labs Labs Laboratory Tests Test 02/21/22 14:07 02/21/22 14:14 02/21/22 14:15 02/21/22 18:15 White Blood Count 14.1 x10^3/uL (4.0-11.0) 16.3 x10^3/uL (4.0-11.0) Red Blood Count 5.04 x10^6/uL (4.30-5.70) 4.80 x10^6/uL (4.30-5.70) Hemoglobin 12.4 g/dL (13.0-17.5) 11.8 g/dL (13.0-17.5) Hematocrit 38.8 % (39.0-53.0) 36.6 % (39.0-53.0) Mean Corpuscular Volume 77 fL (79-100) 76 fL (79-100) Mean Corpuscular Hemoglobin 25 pg (25-35) 25 pg (25-35) Mean Corpuscular Hemoglobin Concent 32 g/dL (31-37) 32 g/dL (31-37) Red Cell Distribution Width 15.2 % (11.5-14.5) 15.3 % (11.5-14.5) Platelet Count 170 x10^3/uL (140-400) 151 x10^3/uL (140-400) Neutrophils (%) (Auto) 88 % (31-73) Lymphocytes (%) (Auto) 6 % (24-48) Monocytes (%) (Auto) 6 % (0-9) Eosinophils (%) (Auto) 0 % (0-3) Basophils (%) (Auto) 0 % (0-3) Neutrophils # (Auto) 12.4 x10^3/uL (1.8-7.7) Lymphocytes # (Auto) 0.9 x10^3/uL (1.0-4.8) Monocytes # (Auto) 0.8 x10^3/uL (0.0-1.1) Eosinophils # (Auto) 0.0 x10^3/uL (0.0-0.7) Basophils # (Auto) 0.0 x10^3/uL (0.0-0.2) Sodium Level 137 mmol/L (136-145) Potassium Level 3.7 mmol/L (3.5-5.1) Chloride Level 100 mmol/L (98-107) Carbon Dioxide Level 25 mmol/L (21-32) Anion Gap 12 (6-14) Blood Urea Nitrogen 14 mg/dL (8-26) Creatinine 1.2 mg/dL (0.7-1.3) Estimated GFR (Cockcroft-Gault) 60.0 BUN/Creatinine Ratio 12 (6-20) Glucose Level 201 mg/dL (70-99) Lactic Acid Level 2.6 mmol/L (0.4-2.0) Calcium Level 8.7 mg/dL (8.5-10.1) Total Bilirubin 0.9 mg/dL (0.2-1.0) Aspartate Amino Transf (AST/SGOT) 18 U/L (15-37) Alanine Aminotransferase (ALT/SGPT) 23 U/L (16-63) Alkaline Phosphatase 45 U/L (46-116) Total Protein 7.2 g/dL (6.4-8.2) Albumin 3.9 g/dL (3.4-5.0) Albumin/Globulin Ratio 1.2 (1.0-1.7) Lipase 73 U/L (73-393) Urine Collection Type Unknown Urine Color (Auto) Light orange Urine Turbidity Hazy Urine pH (Auto) 6.0 (<5.0-8.0) Urine Specific [place] 1.023 (1.000-1.030) Urine Protein (Auto) 70 mg/dL (Negative) Urine Glucose (Auto)(UA) >=1000 mg/dL (Negative) Urine Ketones (Auto) Trace mg/dL (Negative) Urine Blood (Auto) Moderate (Negative) Urine Nitrite (Auto) Positive (Negative) Urine Bilirubin (Auto) Negative (Negative) Urine Urobilinogen (Auto) Normal mg/dL (Normal) Urine Leukocyte Esterase (Auto) Large (Negative) Urine RBC 6-10 /HPF (0-2) Urine WBC Tntc /HPF (0-4) Urine Squamous Epithelial Cells Few /LPF Urine Bacteria Many /HPF (0-FEW) SARS-CoV-2 Antigen (Rapid) Negative (NEGATIVE) Prothrombin Time 17.7 SEC (11.7-14.0) Prothromb Time International Ratio 1.5 (0.8-1.1) Activated Partial Thromboplast Time 35 SEC (24-38) Heparin Anti-Xa Act, Unfractionated < 0.10 IU/mL (0.30-0.70) Test 02/21/22 18:30 02/22/22 02:00 02/22/22 08:12 Lactic Acid Level 1.7 mmol/L (0.4-2.0) White Blood Count 16.1 x10^3/uL (4.0-11.0) Red Blood Count 4.73 x10^6/uL (4.30-5.70) Hemoglobin 11.1 g/dL (13.0-17.5) Hematocrit 36.1 % (39.0-53.0) Mean Corpuscular Volume 77 fL (79-100) Mean Corpuscular Hemoglobin 24 pg (25-35) Mean Corpuscular Hemoglobin Concent 31 g/dL (31-37) Red Cell Distribution Width 15.3 % (11.5-14.5) Platelet Count 151 x10^3/uL (140-400) Neutrophils (%) (Auto) 87 % (31-73) Lymphocytes (%) (Auto) 8 % (24-48) Monocytes (%) (Auto) 5 % (0-9) Eosinophils (%) (Auto) 0 % (0-3) Basophils (%) (Auto) 1 % (0-3) Neutrophils # (Auto) 14.0 x10^3/uL (1.8-7.7) Lymphocytes # (Auto) 1.2 x10^3/uL (1.0-4.8) Monocytes # (Auto) 0.8 x10^3/uL (0.0-1.1) Eosinophils # (Auto) 0.0 x10^3/uL (0.0-0.7) Basophils # (Auto) 0.1 x10^3/uL (0.0-0.2) Heparin Anti-Xa Act, Unfractionated < 0.10 IU/mL (0.30-0.70) Sodium Level 137 mmol/L (136-145) Potassium Level 3.1 mmol/L (3.5-5.1) Chloride Level 104 mmol/L (98-107) Carbon Dioxide Level 22 mmol/L (21-32) Anion Gap 11 (6-14) Blood Urea Nitrogen 14 mg/dL (8-26) Creatinine 1.2 mg/dL (0.7-1.3) Estimated GFR (Cockcroft-Gault) 60.0 BUN/Creatinine Ratio 12 (6-20) Glucose Level 213 mg/dL (70-99) Calcium Level 7.8 mg/dL (8.5-10.1) Total Bilirubin 0.5 mg/dL (0.2-1.0) Aspartate Amino Transf (AST/SGOT) 15 U/L (15-37) Alanine Aminotransferase (ALT/SGPT) 19 U/L (16-63) Alkaline Phosphatase 42 U/L (46-116) Total Protein 6.1 g/dL (6.4-8.2) Albumin 3.0 g/dL (3.4-5.0) Albumin/Globulin Ratio 1.0 (1.0-1.7) Glucose (Fingerstick) 210 mg/dL (70-99) Laboratory Tests Test 02/21/22 14:07 02/21/22 14:14 02/21/22 14:15 02/21/22 18:15 White Blood Count 14.1 x10^3/uL (4.0-11.0) 16.3 x10^3/uL (4.0-11.0) Red Blood Count 5.04 x10^6/uL (4.30-5.70) 4.80 x10^6/uL (4.30-5.70) Hemoglobin 12.4 g/dL (13.0-17.5) 11.8 g/dL (13.0-17.5) Hematocrit 38.8 % (39.0-53.0) 36.6 % (39.0-53.0) Mean Corpuscular Volume 77 fL (79-100) 76 fL (79-100) Mean Corpuscular Hemoglobin 25 pg (25-35) 25 pg (25-35) Mean Corpuscular Hemoglobin Concent 32 g/dL (31-37) 32 g/dL (31-37) Red Cell Distribution Width 15.2 % (11.5-14.5) 15.3 % (11.5-14.5) Platelet Count 170 x10^3/uL (140-400) 151 x10^3/uL (140-400) Neutrophils (%) (Auto) 88 % (31-73) Lymphocytes (%) (Auto) 6 % (24-48) Monocytes (%) (Auto) 6 % (0-9) Eosinophils (%) (Auto) 0 % (0-3) Basophils (%) (Auto) 0 % (0-3) Neutrophils # (Auto) 12.4 x10^3/uL (1.8-7.7) Lymphocytes # (Auto) 0.9 x10^3/uL (1.0-4.8) Monocytes # (Auto) 0.8 x10^3/uL (0.0-1.1) Eosinophils # (Auto) 0.0 x10^3/uL (0.0-0.7) Basophils # (Auto) 0.0 x10^3/uL (0.0-0.2) Sodium Level 137 mmol/L (136-145) Potassium Level 3.7 mmol/L (3.5-5.1) Chloride Level 100 mmol/L (98-107) Carbon Dioxide Level 25 mmol/L (21-32) Anion Gap 12 (6-14) Blood Urea Nitrogen 14 mg/dL (8-26) Creatinine 1.2 mg/dL (0.7-1.3) Estimated GFR (Cockcroft-Gault) 60.0 BUN/Creatinine Ratio 12 (6-20) Glucose Level 201 mg/dL (70-99) Lactic Acid Level 2.6 mmol/L (0.4-2.0) Calcium Level 8.7 mg/dL (8.5-10.1) Total Bilirubin 0.9 mg/dL (0.2-1.0) Aspartate Amino Transf (AST/SGOT) 18 U/L (15-37) Alanine Aminotransferase (ALT/SGPT) 23 U/L (16-63) Alkaline Phosphatase 45 U/L (46-116) Total Protein 7.2 g/dL (6.4-8.2) Albumin 3.9 g/dL (3.4-5.0) Albumin/Globulin Ratio 1.2 (1.0-1.7) Lipase 73 U/L (73-393) Urine Collection Type Unknown Urine Color (Auto) Light orange Urine Turbidity Hazy Urine pH (Auto) 6.0 (<5.0-8.0) Urine Specific [place] 1.023 (1.000-1.030) Urine Protein (Auto) 70 mg/dL (Negative) Urine Glucose (Auto)(UA) >=1000 mg/dL (Negative) Urine Ketones (Auto) Trace mg/dL (Negative) Urine Blood (Auto) Moderate (Negative) Urine Nitrite (Auto) Positive (Negative) Urine Bilirubin (Auto) Negative (Negative) Urine Urobilinogen (Auto) Normal mg/dL (Normal) Urine Leukocyte Esterase (Auto) Large (Negative) Urine RBC 6-10 /HPF (0-2) Urine WBC Tntc /HPF (0-4) Urine Squamous Epithelial Cells Few /LPF Urine Bacteria Many /HPF (0-FEW) SARS-CoV-2 Antigen (Rapid) Negative (NEGATIVE) Prothrombin Time 17.7 SEC (11.7-14.0) Prothromb Time International Ratio 1.5 (0.8-1.1) Activated Partial Thromboplast Time 35 SEC (24-38) Heparin Anti-Xa Act, Unfractionated < 0.10 IU/mL (0.30-0.70) Test 02/21/22 18:30 02/22/22 02:00 02/22/22 08:12 Lactic Acid Level 1.7 mmol/L (0.4-2.0) White Blood Count 16.1 x10^3/uL (4.0-11.0) Red Blood Count 4.73 x10^6/uL (4.30-5.70) Hemoglobin 11.1 g/dL (13.0-17.5) Hematocrit 36.1 % (39.0-53.0) Mean Corpuscular Volume 77 fL (79-100) Mean Corpuscular Hemoglobin 24 pg (25-35) Mean Corpuscular Hemoglobin Concent 31 g/dL (31-37) Red Cell Distribution Width 15.3 % (11.5-14.5) Platelet Count 151 x10^3/uL (140-400) Neutrophils (%) (Auto) 87 % (31-73) Lymphocytes (%) (Auto) 8 % (24-48) Monocytes (%) (Auto) 5 % (0-9) Eosinophils (%) (Auto) 0 % (0-3) Basophils (%) (Auto) 1 % (0-3) Neutrophils # (Auto) 14.0 x10^3/uL (1.8-7.7) Lymphocytes # (Auto) 1.2 x10^3/uL (1.0-4.8) Monocytes # (Auto) 0.8 x10^3/uL (0.0-1.1) Eosinophils # (Auto) 0.0 x10^3/uL (0.0-0.7) Basophils # (Auto) 0.1 x10^3/uL (0.0-0.2) Heparin Anti-Xa Act, Unfractionated < 0.10 IU/mL (0.30-0.70) Sodium Level 137 mmol/L (136-145) Potassium Level 3.1 mmol/L (3.5-5.1) Chloride Level 104 mmol/L (98-107) Carbon Dioxide Level 22 mmol/L (21-32) Anion Gap 11 (6-14) Blood Urea Nitrogen 14 mg/dL (8-26) Creatinine 1.2 mg/dL (0.7-1.3) Estimated GFR (Cockcroft-Gault) 60.0 BUN/Creatinine Ratio 12 (6-20) Glucose Level 213 mg/dL (70-99) Calcium Level 7.8 mg/dL (8.5-10.1) Total Bilirubin 0.5 mg/dL (0.2-1.0) Aspartate Amino Transf (AST/SGOT) 15 U/L (15-37) Alanine Aminotransferase (ALT/SGPT) 19 U/L (16-63) Alkaline Phosphatase 42 U/L (46-116) Total Protein 6.1 g/dL (6.4-8.2) Albumin 3.0 g/dL (3.4-5.0) Albumin/Globulin Ratio 1.0 (1.0-1.7) Glucose (Fingerstick) 210 mg/dL (70-99) VTE Prophylaxis Ordered VTE Prophylaxis Devices: Yes VTE Pharmacological Prophylaxi: Yes Assessment/Plan Assessment/Plan sepsis, zosyn and levaquin given UTI, concern for pyelo, cx pending Acute diastolic CHF, Atrial fib with RVR, rate has gone past 150, Cardizem gtt, CV consult has ordered Dig IV, will increase home dose of metoprolol, he flips back into sinus, we may be able to control when sepsis better DM2, oral agents, BMI 30.5 htn Justifications for Admission Other Justification LYN SÁNCHEZ MD Feb 22, 2022 08:45
[2022-02-22] MEDS ORDERED: POTASSIUM CHLORIDE 20 MEQ TABLET.ER. PO ONE (09:15)
[2022-02-22] MEDS ORDERED: MAGNESIUM SULFATE 2GM 50 ML IV ONE (10:00)
[2022-02-22] MEDS: PIPERACILLIN/TAZOBACTAM 3.375 GM in IV NORMAL SALINE 50ML 50 ML IV SCH ×3 (10:17→23:18)
[2022-02-22] MEDS: ASPIRIN ENTERIC COATED 81 MG TABLET.DR. PO SCH (10:17)
[2022-02-22] MEDS: glipiZIDE 5 MG TABLET PO SCH (10:18)
[2022-02-22] MEDS: METOPROLOL TART IMMED RELEASE 50 MG TABLET. PO SCH ×2 (10:18→21:00)
[2022-02-22] MEDS: LINAGLIPTIN 5 MG TABLET PO SCH (10:18)
[2022-02-22] MEDS: FLUTICASONE 50MCG/NASAL SPRAY 16GM BOTTLE. NS SCH (10:18)
[2022-02-22] MEDS ORDERED: dilTIAZem HCL 125 MG in IV DEXTROSE 5% 100ML 100 ML IV PRN (11:45)
--- NOTE | 2022-02-22 13:03 | PDOC2 ---
TRACI LARA SPOT SPRAYER 02/22/22 1303: CARDIAC CONSULT DATE OF CONSULT Date of Consult DATE: 02/22/22 TIME: 12:56 REASON FOR CONSULT Reason for Consult: AFIB REFERRING PHYSICIAN Referring Physician: Dr. Lazar SOURCE Source: Chart review, Patient HISTORY OF PRESENT ILLNESS HISTORY OF PRESENT ILLNESS This is a 71 yo male who presented secondary to pelvic pain and fever. Patient is Ugandan-speaking. Quill Worker line used for communication. Was noted with paroxysmal AFIB, which prompted this consult. Is on Cardizem and heparin gtt. Rate in 180 this morning. IV Digoxin was administered. Patient converted back to SR and is maintaining. Patient does have a history of PAFIB s/p CV about 2 years ago. Follows with [facility] cardiology team. Previously on OAC therapy, but was reportedly discontinued by escrow processor. PAST MEDICAL HISTORY Cardiovascular: HTN, Hyperlipidemia Endocrine: Diabetes PAST SURGICAL HISTORY Past Surgical History: Cholecystectomy, Cataract Removal FAMILY HISTORY Family History: Hypertension SOCIAL HISTORY Smoke: No ALCOHOL: none Drugs: None Lives: with Family CURRENT MEDICATIONS CURRENT MEDICATIONS Current Medications Medications (Trade) Dose Ordered Sig/[place] Route PRN Reason Start Time Stop Time Status Last Admin Dose Admin Iohexol (Omnipaque 300 Mg/ml) 75 ml 1X ONCE IV 02/21/22 14:45 02/21/22 14:46 DC 02/21/22 14:58 Adenosine (Adenocard) 6 mg 1X ONCE IV 02/21/22 17:00 02/21/22 17:01 DC 02/21/22 17:01 Adenosine (Adenocard) 12 mg 1X ONCE IV 02/21/22 17:00 02/21/22 17:01 DC 02/21/22 17:02 Piperacillin Sod/ Tazobactam Sod 4.5 gm/Dextrose 100 ml @ 200 mls/hr 1X ONCE IV 02/21/22 17:00 02/21/22 17:29 DC 02/21/22 17:14 Diltiazem HCl (Cardizem Iv Push) 10 mg 1X ONCE IVP 02/21/22 17:15 02/21/22 17:16 DC 02/21/22 17:12 Heparin Sodium/ Dextrose 250 ml @ 10 mls/hr CONT PRN IV PER PROTOCOL 02/21/22 17:30 02/21/22 18:43 Heparin Sodium (Porcine) (Heparin Sodium) 2,250 unit PRN Q6HRS PRN IV FOR UFH LEVEL LESS THAN 0.2 02/21/22 17:30 02/22/22 11:26 Diltiazem HCl 125 mg/Sodium Chloride 125 ml @ 5 mls/hr 1X ONCE IV 02/21/22 17:30 02/22/22 18:29 02/21/22 18:21 Acetaminophen (Tylenol) 650 mg PRN Q6HRS PRN PO MILD PAIN / TEMP > 100.3'F 02/22/22 03:30 02/22/22 03:37 Digoxin (Lanoxin) 500 mcg 1X ONCE IV 02/22/22 08:45 02/22/22 08:46 DC 02/22/22 08:33 Potassium Chloride (Klor-Con) 40 meq 1X ONCE PO 02/22/22 09:15 02/22/22 09:16 DC 02/22/22 10:18 Aspirin (Ecotrin) 81 mg DAILYWBKFT PO 02/22/22 09:30 02/22/22 10:17 Fluticasone Propionate (Flonase) 2 spray DAILY NS 02/22/22 09:30 02/22/22 10:18 Glipizide (Glucotrol) 5 mg DAILY PO 02/22/22 09:30 02/22/22 10:18 Metoprolol Tartrate (Lopressor) 50 mg BID PO 02/22/22 09:30 02/22/22 10:18 Linagliptin (Tradjenta) 5 mg DAILY PO 02/22/22 09:30 02/22/22 10:18 Piperacillin Sod/ Tazobactam Sod 3.375 gm/Sodium Chloride 50 ml @ 100 mls/hr Q6HRS IV 02/22/22 10:00 02/22/22 10:17 Magnesium Sulfate 50 ml @ 25 mls/hr 1X ONCE IV 02/22/22 10:00 02/22/22 11:59 DC 02/22/22 11:21 Diltiazem HCl 125 mg/Dextrose 125 ml @ 5 mls/hr CONT PRN IV PER PROTOCOL 02/22/22 11:45 02/22/22 11:59 ALLERGIES ALLERGIES: Coded Allergies: No Known Drug Allergies (Unverified , 12/05/18) ROS Review of System 14 point ROS conducted with pertinent positives noted above in HPI PHYSICAL EXAM General: Alert, Oriented X3, Cooperative, No acute distress HEENT: Atraumatic Lungs: Clear to auscultation Heart: Regular rate Abdomen: Soft Extremities: No edema, Normal pulses Skin: No significant lesion Neuro: Normal speech, Sensation intact Psych/Mental Status: Mental status NL, Mood NL MUSCULOSKELETAL: Osteoarthritic changes both hands VITALS/I&O VITALS/I&O: Vital Signs Date Time Temp Pulse Resp B/P (MAP) Pulse Ox O2 Delivery O2 Flow Rate FiO2 02/22/22 11:00 98.9 90 18 129/66 (87) 94 98.9 02/22/22 04:23 Room Air 02/21/22 18:45 2.0 I & O 02/21/22 02/21/22 02/22/22 14:59 22:59 06:59 Intake Total 100 ml 300 ml Balance 100 ml 300 ml LABS Lab: Laboratory Tests Test 02/21/22 14:07 02/21/22 14:14 02/21/22 14:15 02/21/22 18:15 White Blood Count 14.1 x10^3/uL (4.0-11.0) H 16.3 x10^3/uL (4.0-11.0) H Red Blood Count 5.04 x10^6/uL (4.30-5.70) 4.80 x10^6/uL (4.30-5.70) Hemoglobin 12.4 g/dL (13.0-17.5) L 11.8 g/dL (13.0-17.5) L Hematocrit 38.8 % (39.0-53.0) L 36.6 % (39.0-53.0) L Mean Corpuscular Volume 77 fL (79-100) L 76 fL (79-100) L Mean Corpuscular Hemoglobin 25 pg (25-35) 25 pg (25-35) Mean Corpuscular Hemoglobin Concent 32 g/dL (31-37) 32 g/dL (31-37) Red Cell Distribution Width 15.2 % (11.5-14.5) H 15.3 % (11.5-14.5) H Platelet Count 170 x10^3/uL (140-400) 151 x10^3/uL (140-400) Neutrophils (%) (Auto) 88 % (31-73) H Lymphocytes (%) (Auto) 6 % (24-48) L Monocytes (%) (Auto) 6 % (0-9) Eosinophils (%) (Auto) 0 % (0-3) Basophils (%) (Auto) 0 % (0-3) Neutrophils # (Auto) 12.4 x10^3/uL (1.8-7.7) H Lymphocytes # (Auto) 0.9 x10^3/uL (1.0-4.8) L Monocytes # (Auto) 0.8 x10^3/uL (0.0-1.1) Eosinophils # (Auto) 0.0 x10^3/uL (0.0-0.7) Basophils # (Auto) 0.0 x10^3/uL (0.0-0.2) Sodium Level 137 mmol/L (136-145) Potassium Level 3.7 mmol/L (3.5-5.1) Chloride Level 100 mmol/L (98-107) Carbon Dioxide Level 25 mmol/L (21-32) Anion Gap 12 (6-14) Blood Urea Nitrogen 14 mg/dL (8-26) Creatinine 1.2 mg/dL (0.7-1.3) Estimated GFR (Cockcroft-Gault) 60.0 BUN/Creatinine Ratio 12 (6-20) Glucose Level 201 mg/dL (70-99) H Lactic Acid Level 2.6 mmol/L (0.4-2.0) H Calcium Level 8.7 mg/dL (8.5-10.1) Total Bilirubin 0.9 mg/dL (0.2-1.0) Aspartate Amino Transferase (AST) 18 U/L (15-37) Alanine Aminotransferase (ALT) 23 U/L (16-63) Alkaline Phosphatase 45 U/L (46-116) L Total Protein 7.2 g/dL (6.4-8.2) Albumin 3.9 g/dL (3.4-5.0) Albumin/Globulin Ratio 1.2 (1.0-1.7) Lipase 73 U/L (73-393) Urine Collection Type Unknown Urine Color (Auto) Light orange Urine Turbidity Hazy Urine pH (Auto) 6.0 (<5.0-8.0) Urine Specific [place] 1.023 (1.000-1.030) Urine Protein (Auto) 70 mg/dL (Negative) Urine Glucose (Auto)(UA) >=1000 mg/dL (Negative) Urine Ketones (Auto) Trace mg/dL (Negative) Urine Blood (Auto) Moderate (Negative) Urine Nitrite (Auto) Positive (Negative) Urine Bilirubin (Auto) Negative (Negative) Urine Urobilinogen (Auto) Normal mg/dL (Normal) Urine Leukocyte Esterase (Auto) Large (Negative) Urine RBC 6-10 /HPF (0-2) Urine WBC Tntc /HPF (0-4) Urine Squamous Epithelial Cells Few /LPF Urine Bacteria Many /HPF (0-FEW) SARS-CoV-2 Antigen (Rapid) Negative (NEGATIVE) Prothrombin Time 17.7 SEC (11.7-14.0) H Prothrombin Time INR 1.5 (0.8-1.1) H Activated Partial Thromboplast Time 35 SEC (24-38) Heparin Anti-Xa Act, Unfractionated < 0.10 IU/mL (0.30-0.70) L Test 02/21/22 18:30 02/22/22 02:00 02/22/22 08:12 02/22/22 10:05 Lactic Acid Level 1.7 mmol/L (0.4-2.0) White Blood Count 16.1 x10^3/uL (4.0-11.0) H Red Blood Count 4.73 x10^6/uL (4.30-5.70) Hemoglobin 11.1 g/dL (13.0-17.5) L Hematocrit 36.1 % (39.0-53.0) L Mean Corpuscular Volume 77 fL (79-100) L Mean Corpuscular Hemoglobin 24 pg (25-35) L Mean Corpuscular Hemoglobin Concent 31 g/dL (31-37) Red Cell Distribution Width 15.3 % (11.5-14.5) H Platelet Count 151 x10^3/uL (140-400) Neutrophils (%) (Auto) 87 % (31-73) H Lymphocytes (%) (Auto) 8 % (24-48) L Monocytes (%) (Auto) 5 % (0-9) Eosinophils (%) (Auto) 0 % (0-3) Basophils (%) (Auto) 1 % (0-3) Neutrophils # (Auto) 14.0 x10^3/uL (1.8-7.7) H Lymphocytes # (Auto) 1.2 x10^3/uL (1.0-4.8) Monocytes # (Auto) 0.8 x10^3/uL (0.0-1.1) Eosinophils # (Auto) 0.0 x10^3/uL (0.0-0.7) Basophils # (Auto) 0.1 x10^3/uL (0.0-0.2) Heparin Anti-Xa Act, Unfractionated < 0.10 IU/mL (0.30-0.70) L 0.15 IU/mL (0.30-0.70) L Sodium Level 137 mmol/L (136-145) Potassium Level 3.1 mmol/L (3.5-5.1) L Chloride Level 104 mmol/L (98-107) Carbon Dioxide Level 22 mmol/L (21-32) Anion Gap 11 (6-14) Blood Urea Nitrogen 14 mg/dL (8-26) Creatinine 1.2 mg/dL (0.7-1.3) Estimated GFR (Cockcroft-Gault) 60.0 BUN/Creatinine Ratio 12 (6-20) Glucose Level 213 mg/dL (70-99) H Calcium Level 7.8 mg/dL (8.5-10.1) L Total Bilirubin 0.5 mg/dL (0.2-1.0) Aspartate Amino Transferase (AST) 15 U/L (15-37) Alanine Aminotransferase (ALT) 19 U/L (16-63) Alkaline Phosphatase 42 U/L (46-116) L Total Protein 6.1 g/dL (6.4-8.2) L Albumin 3.0 g/dL (3.4-5.0) L Albumin/Globulin Ratio 1.0 (1.0-1.7) Glucose (Fingerstick) 210 mg/dL (70-99) H Test 02/22/22 11:29 Glucose (Fingerstick) 237 mg/dL (70-99) H Laboratory Tests 02/21/22 14:07 02/21/22 18:15 02/22/22 02:00 Laboratory Tests 02/21/22 14:07 02/22/22 02:00 ECHOCARDIOGRAM ECHOCARDIOGRAM <Conclusion> The left ventricle is normal size. The left ventricular systolic function is normal and the ejection fraction is within normal range. The Ejection Fraction is 50-55%. There is borderline concentric left ventricular hypertrophy. There is no significant aortic valvular stenosis. Doppler and Color Flow revealed trace aortic regurgitation. Doppler and Color-flow revealed trace mitral regurgitation. Doppler and Color Flow revealed trace tricuspid regurgitation. The PA pressure was estimated at 27 mmHg. DATE: 09/27/18 1310 ASSESSMENT/PLAN ASSESSMENT/PLAN 1. Pelvic pain; CT abdomen/pelvis without acute findings 2. Leukocytosis, fevers, sepsis 3. UTI 4. PAFIB with RVR; s/p previous CV. On Cardizem gtt, heparin gtt. Converted back to SR following IV Dig. Follows with [facility] cardiology team. Previously on OAC, but this was discontinued by primary escrow processor. On ASA therapy. 5. Hypertension; controlled 6. Hyperlipidemia 7. Diabetes, II 8. Hypokalemia, hypomagnesemia; replaced Recommendations Metoprolol resumed and increased to 50mg BID Discontinue Cardizem and heparin gtt Continued ASA therapy for now given AFIB recurrence was in setting of sepsis and patient is back in SR Consider addition of antiarrhythmic therapy if AFIB recurrent Ongoing antibiotic therapy Follows cultures ANIL REES MD 02/23/22 0718: CARDIAC CONSULT ASSESSMENT/PLAN ASSESSMENT/PLAN Late entry for 02/22/2022 Patient seen and examined. Agree with above nurse practitioner note. TRACI LARA APRN Feb 22, 2022 13:03 ANIL REES MD Feb 23, 2022 07:18
[2022-02-22] MEDS ORDERED: METO50TA6 PO (14:26)
[2022-02-22] MEDS ORDERED: LISI10TA16 PO (14:26)
[2022-02-22] MEDS ORDERED: SITA1TAB11 PO (14:28)
[2022-02-22] MEDS ORDERED: GLIM4TAB8 PO (14:34)
[2022-02-22] MEDS ORDERED: AMIODARONE 150 MG in IV DEXTROSE 5% 100ML 100 ML IV ONE (18:30)
--- NOTE | 2022-02-22 19:31 | NUR ---
Patient going in & out of afib with HR ranging from 90s-150s. Falguni Denise notified. Orders received. Will continue to monitor.
[2022-02-22] MEDS: AMIODARONE 450 MG in IV DEXTROSE 5% 250 ML IV PRN (19:32)
[2022-02-22] MEDS: ATORVASTATIN CALCIUM 40 MG TABLET. PO SCH (20:09)
[2022-02-23 02:50] VITALS: BP 96/59
[2022-02-23] MEDS: AMIODARONE 450 MG in IV DEXTROSE 5% 250 ML IV PRN ×2 (03:33→14:23)
[2022-02-23] MEDS: PIPERACILLIN/TAZOBACTAM 3.375 GM in IV NORMAL SALINE 50ML 50 ML IV SCH ×4 (05:20→23:42)
[2022-02-23 07:00] VITALS: BP 111/66
[2022-02-23] MEDS: ASPIRIN ENTERIC COATED 81 MG TABLET.DR. PO SCH (08:50)
[2022-02-23] MEDS: metFORMIN 500 MG TABLET PO SCH (08:51)
[2022-02-23] MEDS: FLUTICASONE 50MCG/NASAL SPRAY 16GM BOTTLE. NS SCH (08:51)
[2022-02-23] MEDS: glipiZIDE 5 MG TABLET PO SCH (08:51)
[2022-02-23] MEDS: LINAGLIPTIN 5 MG TABLET PO SCH (08:51)
[2022-02-23] MEDS: METOPROLOL TART IMMED RELEASE 50 MG TABLET. PO SCH ×2 (08:51→20:58)
[2022-02-23] MEDS: POTASSIUM CHLORIDE 20 MEQ TABLET.ER. PO SCH (08:51)
--- NOTE | 2022-02-23 10:16 | PDOC ---
TRACI LARA TUFTING MACHINE OPERATOR 02/23/22 1016: CARDIO Progress Notes Date and Time Date of Service 02/23/22 Time of Evaluation 1015 Subjective Subjective: No Chest Pain, No shortness of breath, No Palpitations Vitals Vitals Vital Signs Date Time Temp Pulse Resp B/P (MAP) Pulse Ox O2 Delivery O2 Flow Rate FiO2 02/23/22 08:51 82 96/59 02/23/22 07:00 99.1 17 94 Room Air 99.1 Weight Weight [ ] Input and Output Intake and Output Intake and Output 02/23/22 07:00 Intake Total 1250 ml Output Total 450 ml Balance 800 ml Intake Oral 1200 ml IV Total 50 ml Output Urine Total 450 ml Laboratory Labs Laboratory Tests Test 02/22/22 11:29 02/22/22 16:32 02/22/22 20:52 02/23/22 07:40 Glucose (Fingerstick) 237 mg/dL (70-99) 247 mg/dL (70-99) 201 mg/dL (70-99) 206 mg/dL (70-99) Microbiology Micro Microbiology 02/21/22 Blood Culture - Preliminary, Resulted NO GROWTH AFTER 1 DAY Physical Exam HEENT: Neck Supple W Full Motion Chest: Symmetric LUNGS: Clear to Auscultation Heart: S1S2, RRR (SR) Abdomen: Soft N/T Extremities: No Edema Neurology: alert, oriented, follow commands Assessment Assessment 1. Pelvic pain; CT abdomen/pelvis without acute findings 2. Leukocytosis, fevers, sepsis 3. UTI 4. PAFIB with RVR; s/p previous CV. On Cardizem gtt, heparin gtt. Converted back to SR following IV Dig. Follows with [facility] cardiology team. Previously on OAC, but this was discontinued by primary hospice admitting clerk. On ASA therapy. Amiodarone initiated yesterday evening due to recurrent AFIB with RVR. is presently SR 5. Hypertension; controlled 6. Hyperlipidemia 7. Diabetes, II 8. Hypokalemia, hypomagnesemia; replaced Recommendations Continue Metoprolol for rate control Amiodarone for rhythm maintenance; start 200mg daily when gtt complete Consider addition of Elquis given recurrent AFIB Ongoing antibiotic therapy Supportive care Follow up with primary hospice admitting clerk through [facility] Justicifation of Admission Dx: Justifications for Admission: Justification of Admission Dx: Yes Comments: AFIB with RVR ANIL REES MD 02/23/22 1811: CARDIO Progress Notes Plan Plan The patient was seen and interviewed as well as examined at the bedside. The chart was reviewed. The case was discussed. Agree with the plan of care. TRACI LARA APRN Feb 23, 2022 10:16 ANIL REES MD Feb 23, 2022 18:11
[2022-02-23 11:00] VITALS: BP 113/68
[2022-02-23] MEDS: APIXABAN 5 MG TABLET. PO SCH ×2 (14:23→20:57)
--- NOTE | 2022-02-23 14:27 | PDOC ---
[employer] PROGRESS NOTE Date of Service DOS: DATE: 02/23/22 TIME: 14:26 Chief Complaint Chief Complaint sepsis, zosyn UTI, pyelo, Acute diastolic CHF, Atrial fib with RVR, r started on Cardizem gtt, Dig IV, - amio gtt started, will transition to pO tonight DM2, oral agents, BMI 30.5 htn History of Present Illness History of Present Illness feels much better, sepsis treated, cx pending CX following, will follow outtunde diaz in am Vitals/I&O Vitals/I&O: Vital Signs Date Time Temp Pulse Resp B/P (MAP) Pulse Ox O2 Delivery O2 Flow Rate FiO2 02/23/22 11:00 98.3 76 17 113/68 (83) 95 Room Air 98.3 I & O 02/22/22 02/22/22 02/23/22 15:00 23:00 07:00 Intake Total 600 ml 300 ml 350 ml Output Total 250 ml 200 ml Balance 350 ml 100 ml 350 ml Physical Exam General: Alert, Oriented X3, Cooperative, No acute distress Heart: Regular rate Lungs: Clear Abdomen: Soft Extremities: No edema, Normal pulses Skin: No significant lesion Labs Labs: Laboratory Tests Test 02/22/22 16:32 02/22/22 20:52 02/23/22 07:40 02/23/22 11:31 Glucose (Fingerstick) 247 mg/dL (70-99) 201 mg/dL (70-99) 206 mg/dL (70-99) 249 mg/dL (70-99) Review of Systems Review of Systems: no nv,.d Assessment and Plan Assessmemt and Plan Problems Medical Problems: (1) Atrial fibrillation, new onset Status: Acute (2) Sepsis Status: Acute (3) UTI (urinary tract infection) Status: Acute Comment Review of Relevant I have reviewed the following items delphine (where applicable) has been applied. Medications: Current Medications Medications (Trade) Dose Ordered Sig/[place] Route PRN Reason Start Time Stop Time Status Last Admin Dose Admin Potassium Chloride (Klor-Con) 20 meq DAILYWBKFT PO 02/23/22 08:00 02/23/22 08:51 Atorvastatin Calcium (Lipitor) 80 mg HS PO 02/22/22 21:00 02/22/22 20:09 Metformin HCl (Glucophage) 500 mg DAILY PO 02/23/22 09:00 02/23/22 08:51 Amiodarone HCl 150 mg/Dextrose 103 ml @ 600 mls/hr 1X ONCE IV 02/22/22 18:30 02/22/22 18:40 DC 02/22/22 18:54 Amiodarone HCl 450 mg/Dextrose 259 ml @ 0 mls/hr CONT PRN IV SEE I/O RECORD 02/22/22 18:30 02/23/22 18:29 02/23/22 14:23 Enoxaparin Sodium (Lovenox 100mg Syringe) 90 mg 1X ONCE SQ 02/22/22 18:30 02/22/22 18:31 DC 02/22/22 18:52 Apixaban (Eliquis) 5 mg BID PO 02/23/22 13:00 02/23/22 14:23 Justifications for Admission Other Justification LYN SÁNCHEZ MD Feb 23, 2022 14:27
[2022-02-23 15:00] VITALS: BP 105/55
[2022-02-23] MEDS: AMIODARONE HCL 200 MG TABLET. PO SCH (17:44)
[2022-02-23 19:40] VITALS: BP 123/66
[2022-02-23] MEDS: LACTOBACILLUS RHAMNOSUS GG 1 CAPSULE. PO SCH (20:57)
[2022-02-23] MEDS: ATORVASTATIN CALCIUM 40 MG TABLET. PO SCH (20:57)
[2022-02-23 23:10] VITALS: BP 129/63
[2022-02-24 03:00] VITALS: BP 121/73
[2022-02-24] MEDS: PIPERACILLIN/TAZOBACTAM 3.375 GM in IV NORMAL SALINE 50ML 50 ML IV SCH (05:41)
[2022-02-24 05:52] LABS: HEMATOCRIT 34.6 % (39.0-53.0); HEMOGLOBIN 10.9 g/dL (13.0-17.5); RED BLOOD COUNT 4.56 x10^6/uL (4.30-5.70); RED CELL DISTRIBUTION WIDTH 15.2 % (11.5-14.5); WHITE BLOOD COUNT 6.6 x10^3/uL (4.0-11.0)
[2022-02-24 07:00] VITALS: BP 122/77
[2022-02-24] MEDS: metFORMIN 500 MG TABLET PO SCH (07:59)
[2022-02-24] MEDS: LACTOBACILLUS RHAMNOSUS GG 1 CAPSULE. PO SCH (08:00)
[2022-02-24] MEDS: ASPIRIN ENTERIC COATED 81 MG TABLET.DR. PO SCH (08:00)
[2022-02-24] MEDS: METOPROLOL TART IMMED RELEASE 50 MG TABLET. PO SCH (08:00)
[2022-02-24] MEDS: APIXABAN 5 MG TABLET. PO SCH (08:00)
[2022-02-24] MEDS: POTASSIUM CHLORIDE 20 MEQ TABLET.ER. PO SCH (08:00)
[2022-02-24] MEDS: LINAGLIPTIN 5 MG TABLET PO SCH (08:01)
[2022-02-24] MEDS: glipiZIDE 5 MG TABLET PO SCH (08:01)
[2022-02-24] MEDS: FLUTICASONE 50MCG/NASAL SPRAY 16GM BOTTLE. NS SCH (08:01)
[2022-02-24] MEDS: AMIODARONE HCL 200 MG TABLET. PO SCH (08:01)
[2022-02-24] MEDS ORDERED: ONDANSETRON PF 4 MG/2 ML VIAL. IVP ONE (09:45)
--- NOTE | 2022-02-24 10:32 | PDOC ---
TRACI LARA DIRECTOR PEOPLESOFT 02/24/22 1032: CARDIO Progress Notes Date and Time Date of Service 02/24/22 Time of Evaluation 1030 Subjective Subjective: No Chest Pain, No shortness of breath, No Palpitations, No Dizziness Vitals Vitals Vital Signs Date Time Temp Pulse Resp B/P (MAP) Pulse Ox O2 Delivery O2 Flow Rate FiO2 02/24/22 08:01 74 121/73 02/24/22 08:00 Room Air 2.0 02/24/22 07:00 97.9 17 97 97.9 Weight Weight [ ] Input and Output Intake and Output Intake and Output 02/24/22 07:00 Intake Total 1419 ml Output Total 600 ml Balance 819 ml Intake Oral 1060 ml IV Total 359 ml Output Urine Total 600 ml Laboratory Labs Laboratory Tests Test 02/23/22 11:31 02/23/22 16:37 02/23/22 20:48 02/24/22 04:40 Glucose (Fingerstick) 249 mg/dL (70-99) 221 mg/dL (70-99) 259 mg/dL (70-99) White Blood Count 6.6 x10^3/uL (4.0-11.0) Red Blood Count 4.56 x10^6/uL (4.30-5.70) Hemoglobin 10.9 g/dL (13.0-17.5) Hematocrit 34.6 % (39.0-53.0) Mean Corpuscular Volume 76 fL (79-100) Mean Corpuscular Hemoglobin 24 pg (25-35) Mean Corpuscular Hemoglobin Concent 32 g/dL (31-37) Red Cell Distribution Width 15.2 % (11.5-14.5) Platelet Count 152 x10^3/uL (140-400) Test 02/24/22 07:44 Glucose (Fingerstick) 196 mg/dL (70-99) Microbiology Micro Microbiology 02/21/22 Blood Culture - Preliminary, Resulted NO GROWTH AFTER 2 DAYS Physical Exam HEENT: Neck Supple W Full Motion Chest: Symmetric LUNGS: Clear to Auscultation Heart: S1S2, RRR (SR) Abdomen: Soft N/T Extremities: No Edema Neurology: alert, oriented, follow commands Assessment Assessment 1. Pelvic pain; CT abdomen/pelvis without acute findings 2. Leukocytosis, fevers, sepsis 3. UTI 4. PAFIB with RVR; s/p previous CV. On Cardizem gtt, heparin gtt. Converted back to SR following IV Dig. Follows with [facility] cardiology team. Previously on OAC, but this was discontinued by primary body mechanic. On ASA therapy. Amiodarone initiated yesterday evening due to recurrent AFIB with RVR. is presently SR 5. Hypertension; controlled 6. Hyperlipidemia 7. Diabetes, II 8. Hypokalemia, hypomagnesemia; replaced Recommendations Continue Metoprolol for rate control Amiodarone for rhythm maintenance Elquis for stroke prophylaxis Ongoing antibiotic therapy Supportive care Follow up with primary body mechanic through [facility] Justicifation of Admission Dx: Justifications for Admission: Justification of Admission Dx: Yes ANIL REES MD 02/24/222: CARDIO Progress Notes Plan Plan Pt. seen and examined. Agree with above BENCH MANAGER note. Supportive care. TRACI LARA APRN Feb 24, 2022 10:32 ANIL REES MD Feb 24, 2022 22:22
[2022-02-24 11:00] VITALS: BP 129/71
[2022-02-24] MEDS ORDERED: APIX5TAB PO (12:28)
[2022-02-24] MEDS ORDERED: AMIO200T53 PO (12:28)
[2022-02-24] MEDS ORDERED: AMOX1TAB61 PO (12:28)
--- NOTE | 2022-02-24 12:33 | PDOC3 ---
Discharge Summary Visit Information Date of Admission: Feb 21, 2022 Date of Discharge: Feb 24, 2022 Final Diagnosis sepsis, zosyn stated, blood cx neg, no urine cx posted, damion change to augmentin for DC UTI, pyelonephritis, pelvic pain on admit, gone, plan 12 days abx course Acute diastolic CHF, Atrial fib with RVR, started on Cardizem gtt, Dig IV, - amio gtt started, transitioned to pO for DC DM2, oral agents, BMI 30.5 htn and hyperlidpis, Hypokalemia, hypomagnesemia; replaced Problems Medical Problems: (1) Atrial fibrillation, new onset Status: Acute (2) Sepsis Status: Acute (3) UTI (urinary tract infection) Status: Acute Brief Hospital Course Allergies Allergies Coded Allergies Type Severity Reaction Last Updated Verified No Known Drug Allergies 12/05/18 No Vital Signs Vital Signs Date Time Temp Pulse Resp B/P (MAP) Pulse Ox O2 Delivery O2 Flow Rate FiO2 02/24/22 11:00 98.6 71 18 129/71 (90) 96 Room Air 98.6 02/24/22 08:00 2.0 Lab Results Laboratory Tests Test 02/22/22 16:32 02/22/22 20:52 02/23/22 07:40 02/23/22 11:31 Glucose (Fingerstick) 247 mg/dL (70-99) 201 mg/dL (70-99) 206 mg/dL (70-99) 249 mg/dL (70-99) Test 02/23/22 16:37 02/23/22 20:48 02/24/22 04:40 02/24/22 07:44 Glucose (Fingerstick) 221 mg/dL (70-99) 259 mg/dL (70-99) 196 mg/dL (70-99) White Blood Count 6.6 x10^3/uL (4.0-11.0) Red Blood Count 4.56 x10^6/uL (4.30-5.70) Hemoglobin 10.9 g/dL (13.0-17.5) Hematocrit 34.6 % (39.0-53.0) Mean Corpuscular Volume 76 fL (79-100) Mean Corpuscular Hemoglobin 24 pg (25-35) Mean Corpuscular Hemoglobin Concent 32 g/dL (31-37) Red Cell Distribution Width 15.2 % (11.5-14.5) Platelet Count 152 x10^3/uL (140-400) Test 02/24/22 10:45 Glucose (Fingerstick) 234 mg/dL (70-99) Laboratory Tests Test 02/23/22 16:37 02/23/22 20:48 02/24/22 04:40 02/24/22 07:44 Glucose (Fingerstick) 221 mg/dL (70-99) 259 mg/dL (70-99) 196 mg/dL (70-99) White Blood Count 6.6 x10^3/uL (4.0-11.0) Red Blood Count 4.56 x10^6/uL (4.30-5.70) Hemoglobin 10.9 g/dL (13.0-17.5) Hematocrit 34.6 % (39.0-53.0) Mean Corpuscular Volume 76 fL (79-100) Mean Corpuscular Hemoglobin 24 pg (25-35) Mean Corpuscular Hemoglobin Concent 32 g/dL (31-37) Red Cell Distribution Width 15.2 % (11.5-14.5) Platelet Count 152 x10^3/uL (140-400) Test 02/24/22 10:45 Glucose (Fingerstick) 234 mg/dL (70-99) Brief Hospital Course Mr. Barger is a 71 old admit with pelvic pain, CT neg, UA showed LE and nitrates, blood cx neg, started on zosyni ER continued Acute AFIB RVR< cardizem gtt, then sinus briefly, then back into afib RVR, started on amio gtt, then change to PO, f/u Dr. Rendon, CV here, Discharge Information Condition at Discharge: Improved Follow Up: Weeks Disposition/Orders: D/C to Home Scheduled Amiodarone Hcl (Amiodarone Hcl) 200 Mg Tablet, 200 MG PO DAILY for afib, #30 Ref 1 Prescribed by: YLN SÁNCHEZ on 02/24/22 1228 Amoxicillin/Potassium Clav (Augmentin 875-125 Tablet) 1 Each Tablet, 1 TAB PO BID for Pyelonephritis for 7 Days, #14 Ref 0 Prescribed by: LYN SÁNCHEZ on 02/24/22 1228 Apixaban (Eliquis) 5 Mg Tablet, 5 MG PO BID for prevent stroke with Afib, #60 Ref 1 Prescribed by: LYN SÁNCHEZ on 02/24/22 1228 Aspirin (Aspirin Ec) 81 Mg Tablet.dr, 81 MG PO DAILYWBKFT for HEART for 90 Days, #90 Prescribed by: LEONILA SILVERIO MD on 09/28/18 1129 Last Action: Continued on 02/22/22 0833 by LYN SÁNCHEZ Atorvastatin Calcium (Lipitor) 80 Mg Tablet, 80 MG PO HS for FOR CHOLESTEROL, #30 Ref 0 (Reported) Entered as Reported by: MONIQUE MILLER on 04/17/21 135 Last Action: Reviewed on 02/22/221426 by ANJANA MERINO Fenofibrate,Micronized (Fenofibrate) 200 Mg Capsule, 200 MG PO DAILY for HYPERLIPIDEMIA, (Reported) Entered as Reported by: MONIQUE MILLER on 04/17/21 135 Last Action: Reviewed on 02/22/22 142 by ANJANA MERINO Fluticasone Propionate (Fluticasone Propionate Nasal [place]) 16 Gm [place].susp, 2 SPRAY NS DAILY for ALLERGIES, (Reported) Entered as Reported by: MONIQUE MILLER on 04/17/21 135 Last Action: Reviewed on 02/22/221425 by ANJANA MERINO Glimepiride (Glimepiride) 4 Mg Tablet, 1 TAB PO DAILY for , #30 Ref 5 (Reported) Entered as Reported by: ANJANA MERINO on 02/22/22 1434 Last Action: New Order on 02/22/22 143 by ANJANA MERINO Glipizide (Glipizide) 5 Mg Tablet, 1 TAB PO DAILY for CONTROL DIABETES, #60 Ref 3 (Reported) Entered as Reported by: MONIQUE MILLER on 04/17/21 1352 Last Action: Reviewed on 02/22/221425 by ANJANA MERINO Lisinopril (Lisinopril) 10 Mg Tablet, 1 TAB PO DAILY for , (Reported) Entered as Reported by: ANJANA MERINO on 02/22/221425 Last Action: New Order on 02/22/221425 by ANJANA MERINO Metoprolol Tartrate (Metoprolol Tartrate) 50 Mg Tablet, 1 TAB PO DAILY for , (Reported) Entered as Reported by: ANJANA MERINO on 02/22/221425 Last Action: New Order on 02/22/221425 by ANJANA MERINO Sitagliptin Phos/Metformin Hcl (Janumet 50-1,000 Mg Tablet) 1 Each Tablet, 1 TAB PO BID for , (Reported) Entered as Reported by: ANJANA MERINO on 02/22/221427 Last Action: New Order on 02/22/221427 by ANJANA MERINO Discontinued Medications Levofloxacin (Levofloxacin) 750 Mg Tablet, 1 TAB PO DAILY, #7 Prescribed by: JOSE JUAN ISLAS D.O. on 02/21/22 154 Last Action: HELD on 02/22/22832 by LYN SÁNCHEZ Patient Instructions Patient Instructions face to face discussed coordination time, 38 min Justicifation of Admission Dx: Justifications for Admission: Justification of Admission Dx: Yes LYN SÁNCHEZ MD Feb 24, 2022 12:33
--- NOTE | 2022-02-24 13:23 | NUR ---
DISCHARGE PIV'S AND TELE DISCONTINUED AT THIS TIME. DISCHARE MEDICATION INFORMATION PRINTED IN LITHUANIAN FOR PT AND FAMILY EASE OF UNDERSTANDING. ATTENTION BROUGHT TO MEDICATIONS NEEDING PIE BAKER FROM PHARMACY, AND HIGHLIGHTED IN YELLOW FOR EASE OF RECALL. ALL QUESTIONS ANSWERED FOR PATIENT. DRESSING IN STREET CLOTHES, ET WILL CALL FOR W/C DOWN TO FRONT DOORS FOR DC VIA PRIVATE VEHICLE.
== END 2022-02-24 14:20 | disposition home or self-care (01) | DRG 871 ==
LOC: ER 12:02 → ED HOLD 18:29 → 6 SOUTH 18:29
PROVIDERS: ADMIT Student in an Organized Health Care Education/Training Program; ATTEND Student in an Organized Health Care Education/Training Program
DX: A41.9 Sepsis, unspecified organism (principal); I50.31 Acute diastolic (congestive) heart failure; N12 Tubulo-interstitial nephritis, not specified as acute or chronic; E11.9 Type 2 diabetes mellitus without complications; E78.00 Pure hypercholesterolemia, unspecified; E78.5 Hyperlipidemia, unspecified; E83.42 Hypomagnesemia; E87.6 Hypokalemia; I11.0 Hypertensive heart disease with heart failure; M19.90 Unspecified osteoarthritis, unspecified site; I48.0 Paroxysmal atrial fibrillation; Z68.30 Body mass index [BMI] 30.0-30.9, adult; Z82.49 Family history of ischemic heart disease and other diseases of the circulatory system; Z20.822 Contact with and (suspected) exposure to COVID-19
CPT/HCPCS: 36415; 71045; 74177; 80053; 81001; 82962; 83605; 83690; 83735; 85025; 85027; 85520; 85610; 85730; 87040; 87426; 96365; 96366; 96367; 96375; 96376; J0153; J0282; J1160; J1644; J1650; J2405; J2543; J3475; J3490; J7060; Q9967; 97110-GP; 97116-GP; 99291-25; G0378